=== PATIENT | male | born 1955 | race Caucasian/White ===

== ENCOUNTER 2016-09-02 17:36 | Inpatient (IN) | payer MEDICARE, OTHER ==
[~2016-09-02] VITALS: Ht 182.9 cm; Wt 85.5 kg
[2016-09-02] MEDS ORDERED: LORAZEPAM 2 MG INJ ONE (17:47)
[2016-09-02] MEDS ORDERED: SOD CHLORIDE 0.9% 1,000 ML IV STA (17:49)
[2016-09-02] MEDS ORDERED: MIDAZOLAM (DRIP) 50 mg/50 mL 50 ML IV STA (17:49)
[2016-09-02] MEDS ORDERED: LEVOFLOXACIN 750MG/D5W (PMX) 150 ML IVPB ONE (18:00)
[2016-09-02] MEDS ORDERED: LORAZEPAM 2 MG INJ IV ONE (18:00)
--- NOTE | 2016-09-02 18:20 | RADRPT ---
PROCEDURE: XR Chest. CLINICAL INDICATION: Abdominal pain TECHNIQUE: Chest AP portable supine COMPARISON: None available FINDINGS: Endotracheal tube 6 cm above the lisette. The mediastinal structures are unremarkable. There is calcification of the thoracic aorta (consiste nt with atherosclerosis). The heart is normal in size and configuration. The pulmonary vascularity is normal. The lung amin are unremarkable. No consolidation is identified. The pleural spaces are unremarkable. The osseous structures are unremarkable. IMPRESSION: Calcification of the thoracic aorta (consistent with atherosclerosis). No evidence for active cardiopulmonary disease. RPTAT: HGDB .Delfin Carrera MD, Date Time Electronically viewed and signed by .Delfin Carrera MD, on 09/02/2016 18:19 .B/
[2016-09-02 18:33] LABS: ADD SCAN DIFF NO
[2016-09-02 18:46] LABS: BASOPHIL # 0.1 10^3/ul (0.0-0.1); BASOPHILS % 0.6 % (0.0-2.0); EOSINOPHILS # 0.3 10^3/ul (0.0-0.5); EOSINOPHILS % 2.7 % (0.0-7.0); HEMATOCRIT 39.1 % (42.0-52.0); HEMOGLOBIN 13.5 g/dl (14.0-18.0); LYMPHOCYTES # 4.1 10^3/ul (0.8-2.9); LYMPHOCYTES % 38.1 % (15.0-51.0); MEAN CORPUSCULAR HEMOGLOBIN 32.9 pg (29.0-33.0); MEAN CORPUSCULAR HGB CONC 34.5 g/dl (32.0-37.0); MEAN CORPUSCULAR VOLUME 95.4 fl (82.0-101.0); MEAN PLATELET VOLUME 12.7 fl (7.4-10.4); MONOCYTE # 0.9 10^3/ul (0.3-0.9); NEUTROPHIL # 5.4 10^3/ul (1.6-7.5); NEUTROPHILS % 49.4 % (39.0-77.0); PLATELET COUNT 128 10^3/UL (140-415); RED CELL DISTRIBUTION WIDTH 11.8 % (11.5-14.5); WHITE BLOOD COUNT 10.9 10^3/ul (4.8-10.8)
[2016-09-02 18:55] LABS: ALBUMIN 3.9 g/dl (3.3-4.9); CHLORIDE 99 mmol/L (97-110); POTASSIUM 4.2 mmol/L (3.5-5.1); SODIUM 136 mmol/L (135-144)
[2016-09-02 18:58] LABS: ALANINE AMINOTRANSFERASE 38 IU/L (13-69); ALBUMIN/GLOBULIN RATIO 0.95; ALKALINE PHOSPHATASE 61 IU/L (42-121); ANION GAP 20 (8-16); ASPARTATE AMINO TRANSFERASE 43 IU/L (15-46); BILIRUBIN,INDIRECT 0.2 mg/dl (0-1.1); BILIRUBIN,TOTAL 0.2 mg/dl (0.2-1.3); BLOOD UREA NITROGEN 20 mg/dl (7-20); CALCIUM 8.6 mg/dl (8.4-10.2); CARBON DIOXIDE 21 mmol/L (21-31); CREATININE 0.89 mg/dl (0.61-1.24); GLUCOSE 223 mg/dl (70-220)
[2016-09-02 19:02] LABS: ADD UMIC YES; URINE BILIRUBIN (Dip) NEGATIVE (NEGATIVE); URINE BLOOD (Dip) 2+ (NEGATIVE); URINE COLOR LT. YELLOW (YELLOW); URINE GLUCOSE (Dip) NEGATIVE (NEGATIVE); URINE KETONES (Dip) NEGATIVE (NEGATIVE); URINE LEUKOCYTE ESTERASE (Dip) TRACE (NEGATIVE); URINE NITRITE (Dip) NEGATIVE (NEGATIVE); URINE TOTAL PROTEIN (Dip) TRACE (NEGATIVE); URINE UROBILINOGEN (Dip) 0.2 E.U./dL (0.1-1.0)
[2016-09-02] MEDS ORDERED: DIVA125C11 PO (19:11)
[2016-09-02] MEDS ORDERED: OMEG1CAP9 PO (19:12)
[2016-09-02] MEDS ORDERED: LACT20SO2 PO (19:15)
[2016-09-02] MEDS ORDERED: ATOR20TA38 PO (19:15)
[2016-09-02 19:17] LABS: TROPONIN-I < 0.012 ng/ml (0.00-0.12)
[2016-09-02] MEDS ORDERED: MAGN250T5 PO (19:18)
[2016-09-02] MEDS ORDERED: NEPHROVITE PO (19:21)
[2016-09-02] MEDS ORDERED: GABA100C PO (19:22)
[2016-09-02] MEDS ORDERED: PHEN100C PO (19:24)
[2016-09-02] MEDS ORDERED: PROP10TA6 PO (19:25)
[2016-09-02] MEDS ORDERED: OXCA300T3 PO (19:26)
[2016-09-02] MEDS ORDERED: CHOL100062 PO (19:27)
[2016-09-02] MEDS ORDERED: BISA-57 PO (19:28)
[2016-09-02] MEDS ORDERED: MAGN400O4 PO (19:29)
[2016-09-02] MEDS ORDERED: ACET325T33 PO (19:30)
[2016-09-02] MEDS ORDERED: FLEETPED PR (19:31)
[2016-09-02 19:40] LABS: BACTERIA,URINE MODERATE; SQUAMOUS EPITHELIAL CELL,UR FEW
[2016-09-02 19:42] LABS: AADO2 Arterial 244.9 mmHg (7.0-24.0); Arterial Base Excess 1.6 mmol/L (-3.0-3); Arterial COHb 0.3 % (0.0-3.0); Arterial Fraction of Oxyhgb 98.7 % (93.0-99.0); Arterial HCO3 25.6 mmol/L (22.0-26.0); Arterial MetHb 0.4 % (0.0-1.5); Arterial Total Hemglobin 13.2 g/dl (12.0-18.0); MODE VENT - AC
[2016-09-02 20:00] LABS: INR 1.37; PROTIME 16.9 Sec (12.2-14.2); PT RATIO 1.3
[2016-09-02] MEDS ORDERED: FLUMAZENIL 0.5 MG INJ IV PRN (20:00)
[2016-09-02] MEDS ORDERED: BISACODYL 10 MG SUPP PR PRN (20:00)
[2016-09-02] MEDS ORDERED: ACETAMINOPHEN 650 MG SUPP PR PRN (20:00)
[2016-09-02] MEDS ORDERED: ACETAMINOPHEN 325 MG TAB PO PRN (20:00)
[2016-09-02] MEDS ORDERED: NITROGLYCERIN (SL) 0.4 MG TAB SL PRN (20:00)
[2016-09-02] MEDS ORDERED: DOCUSATE SODIUM 100 MG CAP PO PRN (20:00)
[2016-09-02] MEDS ORDERED: ONDANSETRON 4 MG INJ IV PRN (20:00)
[2016-09-02] MEDS ORDERED: ACETAMINOPHEN 650MG/20.3ML CUP PO PRN (20:00)
[2016-09-02] MEDS ORDERED: MAGNESIUM HYDROXIDE 30ML CUP PO PRN (20:00)
[2016-09-02] MEDS ORDERED: BISACODYL (EC) 5 MG TAB PO PRN (20:00)
[2016-09-02] MEDS ORDERED: NALOXONE (0.4 MG/ML) INJ IV PRN (20:00)
--- NOTE | 2016-09-02 20:58 | ERA ---
ER Documentation Chief Complaint Date/Time DATE: 09/02/16 TIME: 20:38 Chief Complaint PER EMS PATIENT ASPIRATED ON FOOD, ALOC, WEAK PULSES, CHEST COMPRESSION HPI 60-year-old man brought in by EMS after respiratory arrest, at the scene they stated he vomited and most likely aspirated, they applied high flow oxygen via facemask and after a few episodes of vomiting they say he began breathing independently but remained altered with a GCS equals 3. Nurses at the facility state just prior to EMS arrival he stopped breathing and they could not feel pulses and began chest compressions. EMS state upon their arrival he did have pulses and they did not require chest compressions or intravenous epinephrine. He has had no recent fevers or chills, no diarrhea, no seizure activity. HPI supplemented by reviewing previous medical records and speaking to EMS. ROS All systems reviewed and are negative except as per history of present illness. Medications Home Meds Reported Medications Sod Phosphate/Sod Biphosphate* (Fleet* Enema Pediatric) 66.6 Ml Soln, 66.6 ML [place] DAILY Y for CONSTIPATION, ENEMA 09/02/16 Acetaminophen* (Tylenol*) 325 Mg Tablet, 650 MG PO Q4H Y for MILD PAIN LEVEL 1-3 , TAB AND FOR FEVER>100 09/02/16 Magnesium Hydroxide* (Milk Of Magnesia*) 400 Mg/5 Ml Oral.susp, 30 ML PO QHS, ML 09/02/16 Bisacodyl* (Dulcolax*) 5 Mg Tablet.dr, 10 MG PO Q2D Y for CONSTIPATION, TAB 09/02/16 Cholecalciferol* (Vitamin D3*) 1,000 Unit Tablet, 1000 UNIT PO QAM, TAB 09/02/16 Oxcarbazepine* (Trileptal*) 300 Mg Tablet, 300 MG PO BID, TAB 09/02/16 Propranolol Hcl* (Propranolol Hcl*) 10 Mg Tablet, 10 MG PO TID, TAB HOLD IF SBP<110 HR<60 9AM,1PM,5PM. 09/02/16 Phenytoin* Sodium Extended (Dilantin*) 100 Mg Capsule, 200 MG PO HS, CAP 09/02/16 Gabapentin* (Neurontin*) 100 Mg Capsule, 100 MG PO TID, #90 CAP TAKE 9AM,1PM,5PM. 09/02/16 [Nephrovite] No Conflict Check, 1 TAB PO QAM 09/02/16 Magnesium Oxide (Magnesium) 250 Mg Tablet, 250 MG PO BID, TAB 09/02/16 Atorvastatin Calcium* (Atorvastatin Calcium*) 20 Mg Tablet, 20 MG PO QHS, #30 TAB 09/02/16 Lactulose* (Lactulose*) 20 Gm/30 Ml Solution, 45 GM PO QID, ML TAKE 9AM,1PM,5PM,9PM. 09/02/16 [place]-3 Fatty Acids/Fish Oil (Fish Oil 1,000 mg Softgel) 1 Each Capsule, 1 EACH PO QAM, CAP 09/02/16 Divalproex Sodium* (Depakote* Sprinkle) 125 Mg Cap.sprink, 500 MG PO BID, #360 CAP 09:00 AM AND 05:00 PM 09/02/16 Allergies Allergies: Coded Allergies: No Known Allergy (Unverified , 09/02/16) PMhx/Soc Hypertension, COPD, possible seizure disorder Medical and Surgical Hx: Unable to obtain Smoking Status: Unknown if ever smoked FmHx Family History: No diabetes Physical Exam Vitals Vital Signs Date Time Temp Pulse Resp B/P Pulse Ox O2 Delivery O2 Flow Rate FiO2 09/02/16 18:47 77 16 100 100 09/02/16 17:50 73 20 120/97 100 Physical Exam GENERAL: Well-developed elderly man, unresponsive, GCS equals 3, apneic HEENT: Dry mucous membranes, pale conjunctival, no cervical spine deformity, no goiter, no jaundice NEURO: Patient appears sluggish, GCS equals 3, moving upper and lower extremities bilaterally, no facial asymmetry, pupils equal round reactive to light CARDIAC: Bradycardic to about 50 bpm, regular, no murmurs rubs gallops LUNGS: Poor breath sounds bilaterally, no crackles or stridor ABDOMEN: Soft nontender, no guarding, no rigidity, no rebound, no psoas sign no obturator sign. Normoactive bowel sounds SKIN: Warm and dry to touch, no abrasions, contusions, or hematomas, no lacerations, no ecchymosis, no target lesions, and without ulcers EXTREMITIES: No clubbing cyanosis or edema, calves are bilaterally symmetrical, no Homans sign, no popliteal cord sign. Distal pulses equal and bilateral PSYCH: Unable to assess Result Diagram: 09/02/16181409/02/161814 Results 24 hrs Laboratory Tests Test 09/02/16 18:15 09/02/16 18:27 09/02/16 19:30 09/02/16 19:40 White Blood Count 10.910^3/ul Red Blood Count 4.1010^6/ul Hemoglobin 13.5g/dl Hematocrit 39.1% Mean Corpuscular Volume 95.4fl Mean Corpuscular Hemoglobin 32.9pg Mean Corpuscular Hemoglobin Concent 34.5g/dl Red Cell Distribution Width 11.8% Platelet Count 54462^3/UL Mean Platelet Volume 12.7fl Neutrophils % 49.4% Lymphocytes % 38.1% Monocytes % 8.0% Eosinophils % 2.7% Basophils % 0.6% Nucleated Red Blood Cells % 0.0/100WBC Neutrophils # 5.410^3/ul Lymphocytes # 4.110^3/ul Monocytes # 0.910^3/ul Eosinophils # 0.310^3/ul Basophils # 0.110^3/ul Nucleated Red Blood Cells # 0.010^3/ul Sodium Level 136mmol/L Potassium Level 4.2mmol/L Chloride Level 99mmol/L Carbon Dioxide Level 21mmol/L Anion Gap 20 Blood Urea Nitrogen 20mg/dl Creatinine 0.89mg/dl Glucose Level 223mg/dl Calcium Level 8.6mg/dl Total Bilirubin 0.2mg/dl Direct Bilirubin 0.00mg/dl Indirect Bilirubin 0.2mg/dl Aspartate Amino Transf (AST/SGOT) 43IU/L Alanine Aminotransferase (ALT/SGPT) 38IU/L Alkaline Phosphatase 61IU/L Troponin I < 0.012ng/ml Total Protein 8.0g/dl Albumin 3.9g/dl Globulin 4.10g/dl Albumin/Globulin Ratio 0.95 Lipase 152U/L Urine Color LT. YELLOW Urine Clarity SLIGHTLY CLOUDY Urine pH 6.5 Urine Specific [place] 1.015 Urine Ketones NEGATIVE Urine Nitrite NEGATIVE Urine Bilirubin NEGATIVE Urine Urobilinogen 0.2 E.U./dL Urine Leukocyte Esterase TRACE Urine Microscopic RBC 10-25/HPF Urine Microscopic WBC 2-5/HPF Urine Squamous Epithelial Cells FEW Urine Bacteria MODERATE Urine Hemoglobin 2+ Urine Glucose NEGATIVE% Urine Total Protein TRACE Blood Gas Specimen Source Blood arterial Arterial Blood Date Drawn 09/02/2016 7:38:03 PM Arterial Blood pH (Temp corrected) 7.443 Arterial Blood pCO2 (Temp correct) 38.3mmhg Arterial Blood pO2 (Temp corrected) 429.8mmHG Arterial Blood HCO3 25.6mmol/L Arterial Blood Base Excess 1.6mmol/L Arterial Blood Oxygen Saturation 99.4mmHG Remi Test N/A Arterial Blood Gas Puncture Site Right Brachial Arterial Blood Carboxyhemoglobin 0.3% Arterial Blood Methemoglobin 0.4% Blood Gas A-a O2 Differential 244.9mmHg Oxyhemoglobin Percent 98.7% Total Hemoglobin 13.2g/dl Blood Gas Temperature 37.0C Blood Gas Respiration Rate 16.0 Blood Gas Actual Respiration Rate 16 Blood Gas Modality VENT - AC FiO2 100.0% Blood Gas Tidal Volume 600.0mL Blood Gas Low PEEP Setting 5.0cmH2O Blood Gas Inspiratory Pressure 26.0 Blood Gas Notified Whom MG Blood Gas Notified Time 09/02/2016 7:42:50 PM Prothrombin Time 16.9Sec Prothrombin Time Ratio 1.3 INR International Normalized Ratio 1.37 Current Medications Medications (Trade) Dose Ordered Sig/Romain Route PRN Reason Start Time Stop Time Status Last Admin Dose Admin Lorazepam 2 mg 2 mg ONCE ONCE IV 09/02/16 18:00 09/02/16 18:01 DC 09/02/16 17:55 Midazolam HCl 50 ml @ 3 mls/hr ONCE STAT IV 09/02/16 17:49 09/03/16 10:28 09/02/16 18:18 Levofloxacin/ Dextrose 150 ml @ 100 mls/hr ONCE ONCE IVPB 09/02/16 18:00 09/02/16 19:29 DC 09/02/16 18:18 Sodium Chloride (NS) 1,000 ml @ 2,000 mls/hr Q30M STAT IV 09/02/16 17:49 09/02/16 18:18 DC 09/02/16 17:56 Flumazenil (Romazicon) 0.2 mg Q1M PRN IV BENZODIAZEPINE OVERDOSE 09/02/16 20:00 Naloxone HCl (Narcan) 0.4 mg Q3M PRN IV DECREASED REPIRATORY RATE 09/02/16 20:00 Ondansetron HCl (Zofran Inj) 4 mg Q6H PRN IV NAUSEA AND/OR VOMITING 09/02/16 20:00 Albuterol/ Ipratropium (Duoneb) 3 ml Q4H RESP THERAPY NEB 09/02/16 21:00 Albuterol (Proventil 0.083% (Neb)) 2.5 mg Q4H RESP THERAPY NEB 09/02/16 21:00 UNV Ipratropium [place] (Atrovent 0.02% (Neb)) 0.5 mg Q4H RESP THERAPY NEB 09/02/16 21:00 UNV Methylprednisolone Sodium Succinate (Solu-Medrol) 60 mg Q6 IV 09/03/16 00:00 Nitroglycerin (Nitroglycerin (Sl Tab) 0.4 Mg) 1 tab Q5M PRN SL CHEST PAIN 09/02/16 20:00 Acetaminophen (Tylenol Liquid) 650 mg Q6H PRN PO PAIN LEVEL 1-3 OR FEVER 09/02/16 20:00 Acetaminophen (Tylenol Tab) 650 mg Q6H PRN PO PAIN LEVEL 1-3 OR FEVER 09/02/16 20:00 Acetaminophen (Tylenol Supp) 650 mg Q4H PRN WI PAIN LEVEL 1-3 OR FEVER 09/02/16 20:00 Docusate Sodium (Colace) 100 mg Q12H PRN PO CONSTIPATION 09/02/16 20:00 Magnesium Hydroxide (Milk Of Mag) 30 ml DAILY PRN PO CONSTIPATION 09/02/16 20:00 Bisacodyl (Dulcolax) 5 mg DAILY PRN PO CONSTIPATION 09/02/16 20:00 Bisacodyl (Dulcolax Supp) 10 mg DAILY PRN WI CONSTIPATION 09/02/16 20:00 Procedures/MDM IV line was established patient was placed on engine monitor rhythm strip revealed a sinus bradycardia at about 50 bpm. Patient was afebrile. Blood sugar was normal. Endotracheal Intubation by me: Pre assessment performed. Patient had some movement and required sedation with etomidate 20 mg IV 1, paralysis not required to intubate successfully. Pre-oxygenation performed with 100% oxygen RSI: Performed w/o complication or hypoxic events. Medications as ordered. Blade: Mac 4 ET Tube: 7.5 cm Depth: 22 cm at the lip Intubation confirmed by colorimetric CO2, equal breath sounds, quiet over the stomach. Chest X-ray 1V Interpreted by me: 6 cm above the lisette ET tube. Atelectatic changes bilaterally, no acute infiltrates normal soft tissue, No pneumothorax. I advanced the ET tube 2 more centimeters after this chest x-ray. EKG performed, read by me revealed a sinus rhythm at 60 bpm, right axis deviation and a right bundle branch block, QRS duration 146 ms with a first- degree atrioventricular block at 240 ms, no concerning ST elevations or depressions noted. I administered Ativan 2 mg IV for continued sedation and ordered midazolam drip. CBC was unremarkable, electrolytes revealed dehydration with a BUN/creatinine of 20/0.9, liver function tests are normal, troponin was negative. Urine analysis at this time appears unremarkable, urine cultures are pending I will follow-up. Given the possibility of aspiration I did treat the patient here with levofloxacin 750 mg IV 1. ABG revealed a pH of 7.44, PCO2 38, PO2 430 so FiO2 was decreased to 50% I administered 2 L normal saline intravenously for dehydration. Patient was afebrile and I do not suspect sepsis, although patient's medical reconciliation form does indicate treatment with valproic acid so he may have history of seizure disorder and may have suffered a seizure episode at the facility causing vomiting, possible aspiration, and resulting in a postictal state. Further management deferred to admitting PMD. Critical Care: Time: 47 minutes, this was time separate from other procedures. Treatments/Evaluations: Close monitoring and treatment of unstable vital signs, cardiorespiratory, and neurologic status, while maintaining tight balance of fluid, respiratory, and cardiac interventions. Patient is intubated at this time, vital signs are normal, and he is admitted to intensive care unit under Dr. Gavin. CT scan of the brain has been ordered results are pending I will follow-up. Departure Diagnosis: Primary Impression: Respiratory failure Qualified Code: J96.01 - Acute respiratory failure with hypoxia and hypercapnia Additional Impressions: Dehydration Aspiration of vomit Qualified Code: T17.910A - Aspiration of vomit, initial encounter Encephalopathy Condition: Critical WINNIE FLORES MD Sep 02, 2016 20:50
[2016-09-02] MEDS ORDERED: IPRATROPIUM (NEB) 0.5 MG/2.5 ML AMP NEB SCH (21:00)
[2016-09-02] MEDS ORDERED: ALBUTEROL/IPRATROPIUM (NEB) 3 ML AMP NEB SCH (21:00)
[2016-09-02] MEDS ORDERED: ALBUTEROL 0.083% (NEB) 2.5 MG/3 ML AMP NEB SCH (21:00)
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
[2016-09-02] MEDS: METHYLPREDNISOLONE 125 MG INJ IV SCH (23:40)
--- NOTE | 2016-09-02 23:50 | QN ---
Documentation Comment [id number] hp SALVATORE CALZADA MD Sep 02, 2016 23:50
[2016-09-03] MEDS ORDERED: BISACODYL (EC) 5 MG TAB PO PRN
[2016-09-03] MEDS: DEXTROSE 5%-0.45% NACL 1,000 ML IV SCH (01:04)
[2016-09-03] MEDS: ALBUTEROL HFA 8 GM INHALER INH SCH ×3 (02:50→08:52)
[2016-09-03] MEDS: IPRATROPIUM (HFA) 12.9 GM INHALER INH SCH ×3 (02:50→08:51)
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
[2016-09-03 05:59] LABS: ADD SCAN DIFF NO
[2016-09-03] MEDS: METHYLPREDNISOLONE 125 MG INJ IV SCH (05:59)
[2016-09-03 06:09] LABS: BASOPHILS % 0.1 % (0.0-2.0); EOSINOPHILS % 0.1 % (0.0-7.0); HEMATOCRIT 35.1 % (42.0-52.0); HEMOGLOBIN 12.2 g/dl (14.0-18.0); LYMPHOCYTES # 1.5 10^3/ul (0.8-2.9); LYMPHOCYTES % 14.1 % (15.0-51.0); MEAN CORPUSCULAR HEMOGLOBIN 32.5 pg (29.0-33.0); MEAN CORPUSCULAR HGB CONC 34.8 g/dl (32.0-37.0); MEAN CORPUSCULAR VOLUME 93.6 fl (82.0-101.0); MEAN PLATELET VOLUME 12.2 fl (7.4-10.4); MONOCYTE # 0.5 10^3/ul (0.3-0.9); MONOCYTES % 4.9 % (0.0-11.0); NEUTROPHIL # 8.5 10^3/ul (1.6-7.5); NEUTROPHILS % 80.4 % (39.0-77.0); PLATELET COUNT 102 10^3/UL (140-415); RED BLOOD COUNT 3.75 10^6/ul (4.70-6.10); RED CELL DISTRIBUTION WIDTH 11.9 % (11.5-14.5); WHITE BLOOD COUNT 10.6 10^3/ul (4.8-10.8)
[2016-09-03 06:13] LABS: ALBUMIN 3.2 g/dl (3.3-4.9)
[2016-09-03 06:14] LABS: POTASSIUM 4.5 mmol/L (3.5-5.1)
[2016-09-03 06:16] LABS: ALBUMIN/GLOBULIN RATIO 0.86; BILIRUBIN,INDIRECT 0.4 mg/dl (0-1.1); BILIRUBIN,TOTAL 0.4 mg/dl (0.2-1.3); CALCIUM 8.3 mg/dl (8.4-10.2); CREATININE 1.03 mg/dl (0.61-1.24); TOTAL PROTEIN 6.9 g/dl (6.1-8.1)
[2016-09-03] MEDS: OXCARBAZEPINE 300 MG TAB PO SCH ×2 (09:00→21:00)
[2016-09-03] MEDS ORDERED: DIVALPROEX SPRINKLE 125 MG CAP PO SCH (09:00)
[2016-09-03] MEDS: CHOLECALCIFEROL 1,000 UNIT TAB PO SCH (09:00)
[2016-09-03] MEDS: ASPIRIN 325 MG TAB PO SCH (09:00)
[2016-09-03] MEDS: GABAPENTIN 100 MG CAP PO SCH ×2 (09:00→21:00)
[2016-09-03] MEDS: CEFTRIAXONE 1 GM/50 ML (PMX) 50 ML IVPB SCH (09:28)
--- NOTE | 2016-09-03 11:19 | CONS ---
Date/Time of Note Date/Time of Note DATE: 09/03/16 TIME: 11:13 Assessment/Plan Assessment/Plan Additional Assessment/Plan CT of the head was reviewed which is showing encephalomalacia with evidence of prior craniotomies. Chest x-ray also was reviewed from yesterday which is totally clear. Assessment recommendations; patient admitted with a choking episode on a piece of meat requiring CPR in oral intubation. 2. Stable seizure disorder. 3. History of CVA. 4. History of hypertension, depression, anemia, which all appear fairly stable. 5. Possibly some element of aspiration or difficult to rule out at this time. Patient however currently on appropriate antibiotic regimen. Continue current treatment. When the patient is transferred to ICU he will be evaluated for possible extubation. Consultation Date/Type/Reason Admit Date/Time Date of Consultation: Sep 03, 2016 Type of Consultation: Pulmonary/critical care Reason for Consultation Pulmonary consultations requested for evaluation of respiratory failure. Patient sent in from long term after sustaining a choking episode while eating leading to respiratory failure. History presenting; patient is a 60-year-old white male who was sent over to the ER from the long term yesterday after the patient sustained a choking episode while eating. It is not clear whether CPR was done or not but the patient had to be intubated and put on mechanical invasive mechanical ventilation. By the time I saw the patient, patient is somewhat arousable and is unable to give any history whatsoever himself. History was obtained from medical records, the patient was apparently doing fine until yesterday when he was eating and then choked on a piece of food that resulted in apparent cardiac arrest requiring CPR with further transfer to the hospital where the patient was intubated and put on mechanical ventilation. Patient apparently has history of advanced dementia on account of multiple CVAs as well as history of prior craniotomy evidently due to intracerebral hemorrhage. Past medical history; 1. Patient with history of prior respiratory failure 2. History of seizures 3. Hypertension. 4. Depression. 5. Anemia. 6. History of prior craniotomy. 7. Hyper lipidemia. Medications; were reviewed. Allergies; are none. Social history; not available. Family history; patient apparently is . Occupational he; not available. Review of systems; unable to be obtained. General exam; elderly male, orally intubated, awake but does not respond to any commands. Social History Smoking Status: Unknown if ever smoked Exam/Review of Systems Vital Signs Vitals Vital Signs Date Time Temp Pulse Resp B/P Pulse Ox O2 Delivery O2 Flow Rate FiO2 09/03/16 08:52 74 16 100 50 09/03/16 06:30 97.1 98/55 Mechanical Ventilator Intake and Output 09/02/16 09/02/16 09/03/16 15:00 23:00 07:00 Output Total 500 ml Balance -500 ml Exam HEENT exam is; supple neck, no JVD. No lymphadenopathy. Midline trachea. No thyromegaly. Patient has fair dentition. Pupils are midsize and reactive to light. Multiple well-healed craniotomy scars are present. No thyromegaly. No neck bruits. Chest examination WI: Clear to auscultation bilaterally. S1-S2 audible, no murmurs. Regular rhythm. Abdomen exam is; soft, nondistended. No organomegaly. Bowel sounds audible. Extremity exam is; no peripheral edema. Pulses 1+ bilaterally. No clubbing. SHOT DROPPER exam is; patient is awake but does not follow any commands. Results Result Diagram: 09/03/16 0536 09/03/16 0536 Results 24 hrs Laboratory Tests Test 09/02/16 18:15 09/02/16 18:27 09/02/16 19:30 09/02/16 19:40 White Blood Count 10.9 H Red Blood Count 4.10 L Hemoglobin 13.5 L Hematocrit 39.1 L Mean Corpuscular Volume 95.4 Mean Corpuscular Hemoglobin 32.9 Mean Corpuscular Hemoglobin Concent 34.5 Red Cell Distribution Width 11.8 Platelet Count 128 L Mean Platelet Volume 12.7 H Neutrophils % 49.4 Lymphocytes % 38.1 Monocytes % 8.0 Eosinophils % 2.7 Basophils % 0.6 Nucleated Red Blood Cells % 0.0 Neutrophils # 5.4 Lymphocytes # 4.1 H Monocytes # 0.9 Eosinophils # 0.3 Basophils # 0.1 Nucleated Red Blood Cells # 0.0 Sodium Level 136 Potassium Level 4.2 Chloride Level 99 Carbon Dioxide Level 21 Anion Gap 20 H Blood Urea Nitrogen 20 Creatinine 0.89 Glucose Level 223 H Calcium Level 8.6 Total Bilirubin 0.2 Direct Bilirubin 0.00 Indirect Bilirubin 0.2 Aspartate Amino Transf (AST/SGOT) 43 Alanine Aminotransferase (ALT/SGPT) 38 Alkaline Phosphatase 61 Troponin I < 0.012 0.107 Total Protein 8.0 Albumin 3.9 Globulin 4.10 H Albumin/Globulin Ratio 0.95 Lipase 152 Urine Color LT. YELLOW Urine Clarity SLIGHTLY CLOUDY Urine pH 6.5 Urine Specific [place] 1.015 Urine Ketones NEGATIVE Urine Nitrite NEGATIVE Urine Bilirubin NEGATIVE Urine Urobilinogen 0.2 E.U./dL Urine Leukocyte Esterase TRACE H Urine Microscopic RBC 10-25 Urine Microscopic WBC 2-5 Urine Squamous Epithelial Cells FEW Urine Bacteria MODERATE Urine Hemoglobin 2+ H Urine Glucose NEGATIVE Urine Total Protein TRACE Blood Gas Specimen Source Blood arterial Arterial Blood Date Drawn 09/02/2016 7:38:03 PM Arterial Blood pH (Temp corrected) 7.443 Arterial Blood pCO2 (Temp correct) 38.3 Arterial Blood pO2 (Temp corrected) 429.8 H Arterial Blood HCO3 25.6 Arterial Blood Base Excess 1.6 Arterial Blood Oxygen Saturation 99.4 H Remi Test N/A Arterial Blood Gas Puncture Site Right Brachial Arterial Blood Carboxyhemoglobin 0.3 Arterial Blood Methemoglobin 0.4 Blood Gas A-a O2 Differential 244.9 H Oxyhemoglobin Percent 98.7 Total Hemoglobin 13.2 Blood Gas Temperature 37.0 Blood Gas Respiration Rate 16.0 Blood Gas Actual Respiration Rate 16 Blood Gas Modality VENT - AC FiO2 100.0 Blood Gas Tidal Volume 600.0 Blood Gas Low PEEP Setting 5.0 Blood Gas Inspiratory Pressure 26.0 Blood Gas Notified Whom MG Blood Gas Notified Time 09/02/2016 7:42:50 PM Prothrombin Time 16.9 H Prothrombin Time Ratio 1.3 INR International Normalized Ratio 1.37 Test 09/03/16 01:20 09/03/16 05:36 Troponin I 0.249 *H White Blood Count 10.6 Red Blood Count 3.75 L Hemoglobin 12.2 L Hematocrit 35.1 L Mean Corpuscular Volume 93.6 Mean Corpuscular Hemoglobin 32.5 Mean Corpuscular Hemoglobin Concent 34.8 Red Cell Distribution Width 11.9 Platelet Count 102 #L Mean Platelet Volume 12.2 H Neutrophils % 80.4 H Lymphocytes % 14.1 L Monocytes % 4.9 Eosinophils % 0.1 Basophils % 0.1 Nucleated Red Blood Cells % 0.0 Neutrophils # 8.5 H Lymphocytes # 1.5 Monocytes # 0.5 Eosinophils # 0.0 Basophils # 0.0 Nucleated Red Blood Cells # 0.0 Sodium Level 133 L Potassium Level 4.5 Chloride Level 102 Carbon Dioxide Level 24 Anion Gap 12 # Blood Urea Nitrogen 21 H Creatinine 1.03 Glucose Level 223 H Calcium Level 8.3 L Total Bilirubin 0.4 Direct Bilirubin 0.00 Indirect Bilirubin 0.4 Aspartate Amino Transf (AST/SGOT) 34 Alanine Aminotransferase (ALT/SGPT) 43 Alkaline Phosphatase 62 Total Protein 6.9 # Albumin 3.2 L Globulin 3.70 H Albumin/Globulin Ratio 0.86 Medications Medications Current Medications Flumazenil (Romazicon) 0.2 mg Q1M PRN IV BENZODIAZEPINE OVERDOSE; Start at 20:00 Naloxone HCl (Narcan) 0.4 mg Q3M PRN IV DECREASED REPIRATORY RATE; Start at 20:00 Ondansetron HCl (Zofran Inj) 4 mg Q6H PRN IV NAUSEA AND/OR VOMITING; Start 09/02 at 20:00 Methylprednisolone Sodium Succinate (Solu-Medrol) 60 mg Q6 IV Last administered on 09/03/16t 05:59; Admin Dose 60 MG; Start 09/03/16 at 00:00 Nitroglycerin (Nitroglycerin (Sl Tab) 0.4 Mg) 1 tab Q5M PRN SL CHEST PAIN; Start 09/02/16 at 20:00 Acetaminophen (Tylenol Liquid) 650 mg Q6H PRN PO PAIN LEVEL 1-3 OR FEVER; Start 09/02/16 at 20:00 Acetaminophen (Tylenol Tab) 650 mg Q6H PRN PO PAIN LEVEL 1-3 OR FEVER; Start at 20:00 Acetaminophen (Tylenol Supp) 650 mg Q4H PRN OR PAIN LEVEL 1-3 OR FEVER; Start 09/02/16 at 20:00 Docusate Sodium (Colace) 100 mg Q12H PRN PO CONSTIPATION; Start 09/02/16 at 20: 00 Magnesium Hydroxide (Milk Of Mag) 30 ml DAILY PRN PO CONSTIPATION; Start at 20:00 Bisacodyl (Dulcolax) 5 mg DAILY PRN PO CONSTIPATION; Start 09/02/16 at 20:00 Bisacodyl (Dulcolax Supp) 10 mg DAILY PRN OR CONSTIPATION; Start 09/02/16 at 20: 00 Acetaminophen (Tylenol Tab) 650 mg Q4H PRN PO MILD PAIN LEVEL 1-3; Start at 00:00 Atorvastatin Calcium (Lipitor) 20 mg QHS PO ; Start 09/03/16 at 21:00 Bisacodyl (Dulcolax) 10 mg Q2D PRN PO CONSTIPATION; Start 09/03/16 at 00:00 Cholecalciferol (Vitamin D) 1,000 unit QAM PO ; Start 09/03/16 at 09:00 Divalproex Sodium (Depakote Sprinkle) 500 mg BID PO ; Start 09/03/16 at 09:00 Gabapentin (Neurontin) 100 mg TID PO ; Start 09/03/16 at 09:00 Magnesium Hydroxide (Milk Of Mag) 30 ml QHS PO ; Start 09/03/16 at 21:00 Oxcarbazepine (Trileptal) 300 mg BID PO ; Start 09/03/16 at 09:00 Phenytoin (Dilantin) 200 mg HS PO ; Start 09/03/16 at 21:00 Aspirin 325 mg 325 mg DAILY PO ; Start 09/03/16 at 09:00 Ceftriaxone Sodium 50 ml @ 100 mls/hr DAILY IVPB Last administered on 09:28; Admin Dose 100 MLS/HR; Start 09/03/16 at 09:00 Dextrose/Sodium Chloride (D5-1/2ns) 1,000 ml @ 50 mls/hr Q20H IV Last administered on 09/03/16 01:04; Admin Dose 50 MLS/HR; Start 09/03/16 at 00:00 SOLO PAK Sep 03, 2016 11:19
[2016-09-03] MEDS: VALPROATE INJ 500 MG in DEXTROSE 5% 50 ML IVPB SCH (13:00)
--- NOTE | 2016-09-03 18:41 | RADRPT ---
Echocardiogram Report Patient Name: GORDO KIRBY Gender: Male Date: 1955 Study Date: 03-Sep-2016 Orthopaedic General: Ray Arzola RDCS Location: [facility] Ref. Physician: SALVATORE CALZADA Quality: Technically Difficult Study Procedures: Transthoracic echocardiogram with complete 2D, M-Mode, and doppler examination. Indications: Coronary Artery Disease. 2D/M Mode Doppler Measurement Value Normal Ranges Measurement Value Normal Ranges LVIDd 2D 3.5 3.5 - 5.6 cm AV Peak Sushant 0.9 m/sec LVIDs 2D 2.0 2.1 - 4.1 cm AV Peak PG 3.3 mmHg LVPWd 2D 1.0 0.6 - 1.1 cm LVOT Peak Sushant 0.8 m/sec IVSd 2D 1.1 0.6 - 1.1 cm LVOT Peak PG 2.4 mmHg AoR Diam 2D 2.7 2.0 - 3.7 cm MV E Peak Sushant 0.4 m/sec EDV 2D 50.9 cm3 MV A Peak Sushant 0.6 m/sec ESV 2D 8.3 cm3 MV E/A 0.7 LA Dimen 2D 2.7 2.3 - 4.0 cm MV Decel Time 158 msec MV Decel [place] 3 MV E/A 0.7 Findings Left Ventricle: Hyperdynamic left ventricular systolic function. Normal left ventricular cavity size. Mild concentric left ventricular hypertrophy. Ejection fraction is visually estimated at 70 %. Tissue Doppler/Mitral Doppler indices are consistent with impaired relaxation (Stage I diastolic dysfunction). Right Ventricle: Normal right ventricular size. Normal right ventricular systolic function. Left Atrium: The left atrium is normal in size. Right Atrium: The right atrium is normal in size. Mitral Valve: Normal appearance and function of the mitral valve with trace physiologic regurgitation. Aortic Valve: Normal appearance of the aortic valve. No significant aortic stenosis or insufficiency. Tricuspid Valve: Normal appearance of the tricuspid valve. Unable to obtain RVSP due to minimal presence of tricuspid regurgitation. Pulmonic Valve: Pulmonic valve not well visualized. Pericardium: Normal pericardium with no significant pericardial effusion. Aorta: Normal aortic root. IVC: Dilated nferior vena cava without respiratory collapse, however, patient on ventilator. Conclusions 1.Hyperdynamic left ventricular systolic function. Normal left ventricular cavity size. Mild concentric left ventricular hypertrophy. Ejection fraction is visually estimated at 70 %. Tissue Doppler/Mitral Doppler indices are consistent with impaired relaxation (Stage I diastolic dysfunction). 2.Normal appearance and function of the mitral valve with trace physiologic regurgitation. 3.Normal appearance of the tricuspid valve. Unable to obtain RVSP due to minimal presence of tricuspid regurgitation. Electronically Signed By: Josue Marshall 03-Sep-2016 18:41:05 -0700 Patient Name: GORDO KIRBY Study Date: 03-Sep-2016 [id number]
[2016-09-03] MEDS: MAGNESIUM HYDROXIDE 30ML CUP PO SCH (21:00)
[2016-09-03] MEDS: ATORVASTATIN 20 MG TAB PO SCH (21:00)
[2016-09-03] MEDS: PHENYTOIN 100 MG CAP PO SCH (21:00)
--- NOTE | 2016-09-03 21:18 | PN ---
Date/Time of Note Date/Time of Note DATE: 09/03/16 TIME: 21:17 Assessment/Plan VTE Prophylaxis VTE Prophylaxis Intervention: other Lines/Catheters Urinary Cath still in place: Yes Reason Cath still needed: other (indicate) Assessment/Plan Chief Complaint/Hosp Course IMPRESSION: 1. Status post acute hypoxic respiratory failure due to choking episode. 2. The patient has ventilator dependent respiratory failure and urinary tract infection. 3. The patient has hyperglycemia, leukocytosis, and thrombocytopenia. 4. The patient has a history of psychiatric disorder. PLAN PER PULMONARY AND CARDIO Problems: Subjective 24 Hr Interval Summary Subjective hx not possible: other (ON VENT AWAKE) Exam/Review of Systems Vital Signs Vitals Vital Signs Date Time Temp Pulse Resp B/P Pulse Ox O2 Delivery O2 Flow Rate FiO2 09/03/16 19:30 98.6 92 17 90/66 Mechanical Ventilator 09/03/16 17:33 100 40 Intake and Output 09/02/16 09/02/16 09/03/16 15:00 23:00 07:00 Output Total 500 ml Balance -500 ml Exam Respiratory: clear to auscultation Cardiovascular: regular rate and rhythm Gastrointestinal: soft Musculoskeletal: nl extremities to inspection Extremities: normal pulses Neurological: CIVIL ESTIMATOR II-XII intact Results Result Diagram: 09/03/16 0536 09/03/16 0536 Results 24 hrs Laboratory Tests Test 09/03/16 01:20 09/03/16 05:36 Troponin I 0.249 *H White Blood Count 10.6 Red Blood Count 3.75 L Hemoglobin 12.2 L Hematocrit 35.1 L Mean Corpuscular Volume 93.6 Mean Corpuscular Hemoglobin 32.5 Mean Corpuscular Hemoglobin Concent 34.8 Red Cell Distribution Width 11.9 Platelet Count 102 #L Mean Platelet Volume 12.2 H Neutrophils % 80.4 H Lymphocytes % 14.1 L Monocytes % 4.9 Eosinophils % 0.1 Basophils % 0.1 Nucleated Red Blood Cells % 0.0 Neutrophils # 8.5 H Lymphocytes # 1.5 Monocytes # 0.5 Eosinophils # 0.0 Basophils # 0.0 Nucleated Red Blood Cells # 0.0 Sodium Level 133 L Potassium Level 4.5 Chloride Level 102 Carbon Dioxide Level 24 Anion Gap 12 # Blood Urea Nitrogen 21 H Creatinine 1.03 Glucose Level 223 H Calcium Level 8.3 L Total Bilirubin 0.4 Direct Bilirubin 0.00 Indirect Bilirubin 0.4 Aspartate Amino Transf (AST/SGOT) 34 Alanine Aminotransferase (ALT/SGPT) 43 Alkaline Phosphatase 62 Total Protein 6.9 # Albumin 3.2 L Globulin 3.70 H Albumin/Globulin Ratio 0.86 SALVATORE CALZADA MD Sep 03, 2016 21:18
[2016-09-03 23:30] VITALS: TEMP 98.9
[2016-09-04] VITALS (73 sets, daily range): BP systolic 84–145; BP diastolic 60–100; PULSE 88–114; RESP 4–22; Ht 182.9 cm; Wt 85.5 kg
[2016-09-04] MEDS ORDERED: SUCCINYLCHOLINE CHLORIDE 100 MG/5 ML SYG IV ONE
[2016-09-04] MEDS ORDERED: ETOMIDATE 20 MG INJ ONE
[2016-09-04] MEDS ORDERED: MIDAZOLAM (DRIP) 50 mg/50 mL 50 ML IV SCH (00:45)
[2016-09-04] MEDS: METHYLPREDNISOLONE 125 MG INJ IV SCH ×5 (05:00→18:00)
[2016-09-04 06:08] LABS: ADD SCAN DIFF NO
[2016-09-04 06:19] LABS: ABNORMAL IP MESSAGE 1; BASOPHILS % 0.2 % (0.0-2.0); EOSINOPHILS % 0.3 % (0.0-7.0); HEMATOCRIT 33.9 % (42.0-52.0); HEMOGLOBIN 11.5 g/dl (14.0-18.0); LYMPHOCYTES # 2.5 10^3/ul (0.8-2.9); LYMPHOCYTES % 21.4 % (15.0-51.0); MEAN CORPUSCULAR HEMOGLOBIN 32.3 pg (29.0-33.0); MEAN CORPUSCULAR HGB CONC 33.9 g/dl (32.0-37.0); MEAN CORPUSCULAR VOLUME 95.2 fl (82.0-101.0); MEAN PLATELET VOLUME 12.8 fl (7.4-10.4); MONOCYTE # 1.3 10^3/ul (0.3-0.9); MONOCYTES % 11.1 % (0.0-11.0); NEUTROPHIL # 7.8 10^3/ul (1.6-7.5); NEUTROPHILS % 66.7 % (39.0-77.0); PLATELET COUNT 96 10^3/UL (140-415); RED BLOOD COUNT 3.56 10^6/ul (4.70-6.10); WHITE BLOOD COUNT 11.6 10^3/ul (4.8-10.8)
[2016-09-04 06:23] LABS: ALBUMIN 3.2 g/dl (3.3-4.9)
[2016-09-04 06:25] LABS: BILIRUBIN,INDIRECT 0.3 mg/dl (0-1.1); BILIRUBIN,TOTAL 0.3 mg/dl (0.2-1.3); CREATININE 1.15 mg/dl (0.61-1.24)
[2016-09-04 06:26] LABS: ALBUMIN/GLOBULIN RATIO 0.84; CALCIUM 8.6 mg/dl (8.4-10.2)
--- NOTE | 2016-09-04 07:37 | CONS ---
DATE OF ADMISSION: 09/04/2016 DATE OF CONSULTATION: REFERRING PHYSICIAN: Sourav Calzada MD REASON FOR EVALUATION: Abnormal EKG, first-degree AV block, right bundle branch block. HISTORY OF PRESENT ILLNESS: Mr. Miller is a 60-year-old gentleman with hypertension, dyslipidemia, hi story of coronary artery disease, history of seizure disorder who was brought into the hospital for evaluation of altered mental status. The patient had a respiratory arrest. He required intubation in the field and brought to emergency room with a GCS of 3. The patient apparently had stopped carmencita thing ____ with CPR administered, but no other events are clear to me at this point. The patient is in first-degree AV block with right bundle branch block with some nonspecific ST changes. His bloo d pressure is stable now. He appears to respond well to intubation and respirator support. The pat ient will be transferred to intensive care unit. For now, conservative therapy is maintained. We w ill obtain a 2D echo and follow up with a 12-lead EKG. The patient will be ruled out for acute isch emia. Other than that, conservative therapy is expected at this point. PAST MEDICAL HISTORY: 1. Hypertension. 2. Dyslipidemia. 3. History of coronary artery disease. 4. History of pain syndrome. 5. History of seizure disorder. ALLERGIES: NO KNOWN DRUG ALLERGIES. SOCIAL HISTORY: The patient does not smoke, does not drink, does not use any drugs. FAMILY HISTORY: Negative for sudden cardiac , premature coronary artery disease based on recor ds review. HOME MEDICATIONS: Include: 1. Tylenol. 2. ____. 3. Propranolol 10 mg once a day. 4. Phenytoin. 5. Gabapentin. 6. Magnesium oxide. 7. Atorvastatin. 8. Lactulose. 9. [place]-3 fatty acids. REVIEW OF SYSTEMS: Not able to obtain from patient. Based on the records reviewed: CONSTITUTIONAL: No fevers, no chills. Cardiac arrest, as described. HEENT: ____. CARDIAC: No chest pain reported. RESPIRATORY: Short of breath, acute, status post intubation. GASTROINTESTINAL: No nausea, vomiting, diarrhea, constipation. GENITOURINARY: No dysuria, hematuria, ____. NEUROLOGIC: Seizure disorder. PSYCHIATRIC: History of psychiatric illness. PHYSICAL EXAMINATION: VITAL SIGNS: Temperature is 98.4, heart rate is 87, blood pressure ____/74. GENERAL: He is a thin gentleman in no acute distress, alert x0, not aware of his condition now. HEAD: Normocephalic, atraumatic. Eyes anicteric. NECK: Supple. JVD 6 to 7 cm. There is no lymphadenopathy. HEART: Regular with soft holosystolic murmur at the apex. PMI is nondisplaced. There is no S3. LUNGS: Coarse at the bases. ABDOMEN: Distended. Bowel sounds are present. There is no hepatosplenomegaly. GENITOURINARY: Intact. EXTREMITIES: No cyanosis or edema. ECG read by me shows sinus rhythm, rate of ____, first degree AV block, right bundle branch block. LABORATORY DATA: White blood cells 10.6, hemoglobin is 12.2, platelets 102. INR is 1.3. Troponin was from 0.107 to 0.249. Sodium 133, BUN is 21, creatinine 1.06, glucose is 223. ASSESSMENT AND PLAN: 1. Status post respiratory arrest. The patient is status post respiratory arrest, now. His tropon ins trending up. Will check another set of troponins. For now, conservative therapy is expected. We will make sure the patient is on aspirin and follow expectantly. There is no indication for hepa rinization this point. 2. Coronary artery disease. The patient's possible history of coronary artery disease. Continue t o rule out for ischemia. A 2D echo is pending. 3. Respiratory arrest. The patient is status post respiratory arrest, now status post intubation. Responded well. 4. History of seizure disorder, possibly related his condition. Continue optimization as primary t eam. 5. Hyponatremia. Sodium was 133. No particular treatment is required. We will hydrate is indicat ed. 6. History of psychiatric illness. Continue to adjust therapy as warranted. 7. Abnormal EKG, right bundle branch block, first degree AV block noted, possibly chronic. Will ho ld off on a beta lucía. We will follow expectantly. I would like to thank Dr. Calzada for referring this patient for my evaluation. Dictated By: SANCHO GARCIA MD ML/NTS Conf#: [id number] DID#: [id number] CC: SOURAV CALZADA MD;*EndCC*
[2016-09-04] MEDS: GABAPENTIN 100 MG CAP PO SCH ×4 (09:00→20:58)
--- NOTE | 2016-09-04 10:07 | CONS ---
Date/Time of Note Date/Time of Note DATE: 09/04/16 TIME: 10:01 Consult Date/Type/Reason Admit Date/Time Sep 04, 2016 at 00:20 Initial Consult Date 09/03/16 Type of Consultation: Pulmonary/critical care Subjective Patient remains intubated sedated on mechanical ventilation Objective Vital Signs Date Time Temp Pulse Resp B/P Pulse Ox O2 Delivery O2 Flow Rate FiO2 09/04/16 09:30 94 16 133/85 100 09/04/16 09:00 Mechanical Ventilator 09/04/16 08:00 98.2 09/04/16 05:06 30 Intake and Output 09/03/16 09/03/16 09/04/16 15:00 23:00 07:00 Intake Total 45 ml Output Total 925 ml 640 ml Balance -925 ml -595 ml Exam PHYSICAL EXAMINATION GENERAL: Elderly gentleman, intubated on mechanical ventilation, opens eyes and appears somewhat agitated. Orally intubated. VITAL SIGNS: see below. HEENT: Pupils equal, round, and reactive to light. CARDIAC: S1, S2, no rales or wheezes CHEST: Diminished air entry bilaterally. ABDOMEN: Mildly distended. Bowel sounds present no guarding or rebound EXTREMITIES: No cyanosis, clubbing or edema. NEUROLOGIC: Generalized weakness Results/Medications Result Diagram: 09/04/16 0440 09/04/16 0440 Results 24 hrs Laboratory Tests Test 09/04/16 04:40 White Blood Count 11.6 H Red Blood Count 3.56 L Hemoglobin 11.5 L Hematocrit 33.9 L Mean Corpuscular Volume 95.2 Mean Corpuscular Hemoglobin 32.3 Mean Corpuscular Hemoglobin Concent 33.9 Red Cell Distribution Width 12.0 Platelet Count 96 L Mean Platelet Volume 12.8 H Neutrophils % 66.7 Lymphocytes % 21.4 Monocytes % 11.1 H Eosinophils % 0.3 Basophils % 0.2 Nucleated Red Blood Cells % 0.0 Neutrophils # 7.8 H Lymphocytes # 2.5 Monocytes # 1.3 H Eosinophils # 0.0 Basophils # 0.0 Nucleated Red Blood Cells # 0.0 Sodium Level 135 Potassium Level 4.0 Chloride Level 106 Carbon Dioxide Level 23 Anion Gap 10 Blood Urea Nitrogen 28 H Creatinine 1.15 Glucose Level 175 Calcium Level 8.6 Total Bilirubin 0.3 Direct Bilirubin 0.00 Indirect Bilirubin 0.3 Aspartate Amino Transf (AST/SGOT) 28 Alanine Aminotransferase (ALT/SGPT) 37 Alkaline Phosphatase 64 Total Protein 7.0 Albumin 3.2 L Globulin 3.80 H Albumin/Globulin Ratio 0.84 Medications Current Medications Atorvastatin Calcium (Lipitor) 20 mg QHS PO ; Start 09/03/16 at 21:00 Magnesium Hydroxide (Milk Of Mag) 30 ml QHS PO ; Start 09/03/16 at 21:00 Phenytoin 200 mg 200 mg HS PO ; Start 09/03/16 at 21:00 Midazolam HCl (Versed) 50 ml @ 1 mls/hr TITRATE IV Last administered on t 00:53; Admin Dose 7 MLS/HR; Start 09/04/16 at 00:45 Assessment/Plan Chief Complaint/Hosp Course Assessment 1. Possible aspiration pneumonia 2. Hypoxemic respiratory failure 3. History of seizure disorder 4. 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 Thrombocytopenia Plan 1. CPAP weaning trial 2. Antibiotics for aspiration pneumonia 3. Swallow evaluation postextubation 4. Cardiac recommendations 5. DVT GI prophylaxis Disposition Continue ICU care today Problems: KAT[facility] SEAMAN [facility] Sep 04, 2016 10:07
[2016-09-04 12:01] LABS: AADO2 Arterial 48.9 mmHg (7.0-24.0); Allen Test ACCEPTAB; Arterial Base Excess -0.4 mmol/L (-3.0-3); Arterial COHb 0.3 % (0.0-3.0); Arterial Fraction of Oxyhgb 97.4 % (93.0-99.0); Arterial HCO3 21.4 mmol/L (22.0-26.0); Arterial MetHb 0.6 % (0.0-1.5); Arterial Total Hemglobin 14.1 g/dl (12.0-18.0); Blood Gas PS 10; MODE VENT - CPAP
--- NOTE | 2016-09-04 12:03 | CONS ---
Date/Time of Note Date/Time of Note DATE: 09/04/16 TIME: 11:55 Assessment/Plan Assessment/Plan Chief Complaint/Hosp Course IMp: 1.Positive troponin-minimal ? 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 Possible PNA Recc: -Tele -serial ecg's -Continue dilantin -Resume asa -Would consider resumption of abx's/f/u cx data Problems: Consultation Date/Type/Reason Admit Date/Time Sep 04, 2016 at 00:20 Initial Consult Date 09/03/16 Type of Consultation: Cardiology Reason for Consultation abnl ecg Referring Provider: SALVATORE CALZADA MD Exam/Review of Systems Vital Signs Vitals Vital Signs Date Time Temp Pulse Resp B/P Pulse Ox O2 Delivery O2 Flow Rate FiO2 09/04/16 11:45 101 14 121/77 100 09/04/16 11:03 30 09/04/16 11:00 Mechanical Ventilator 09/04/16 08:00 98.2 Intake and Output 09/03/16 09/03/16 09/04/16 15:00 23:00 07:00 Intake Total 45 ml Output Total 925 ml 640 ml Balance -925 ml -595 ml Exam Review of Systems: CONSTITUTIONAL: No fevers, chills. PULMONARY: intubated CARDIOVASCULAR: No obvious chest pain/palpitations GASTROINTESTINAL: No nausea/vomiting. GENITOURINARY: No hematuria/dysuria. MUSCULOSKELETAL: No obvious myagias/arthalgias. PSYCHIATRIC: The patient denies depression. NEUROLOGIC: sedated Constitutional: alert Psych: no complaints Head: normocephalic ENMT: mucosa pink and moist Neck: jvd (9 cm water), supple Respiratory: diminished breath sounds (at bases/B) Cardiovascular: regular rate and rhythm Gastrointestinal: non-tender, soft Musculoskeletal: muscle tone (normal) Extremities: edema (none) Neurological: other (No focal deficits) Results Result Diagram: 09/04/16 0440 09/04/16 0440 Results 24 hrs Laboratory Tests Test 09/04/16 04:40 White Blood Count 11.6 H Red Blood Count 3.56 L Hemoglobin 11.5 L Hematocrit 33.9 L Mean Corpuscular Volume 95.2 Mean Corpuscular Hemoglobin 32.3 Mean Corpuscular Hemoglobin Concent 33.9 Red Cell Distribution Width 12.0 Platelet Count 96 L Mean Platelet Volume 12.8 H Neutrophils % 66.7 Lymphocytes % 21.4 Monocytes % 11.1 H Eosinophils % 0.3 Basophils % 0.2 Nucleated Red Blood Cells % 0.0 Neutrophils # 7.8 H Lymphocytes # 2.5 Monocytes # 1.3 H Eosinophils # 0.0 Basophils # 0.0 Nucleated Red Blood Cells # 0.0 Sodium Level 135 Potassium Level 4.0 Chloride Level 106 Carbon Dioxide Level 23 Anion Gap 10 Blood Urea Nitrogen 28 H Creatinine 1.15 Glucose Level 175 Calcium Level 8.6 Total Bilirubin 0.3 Direct Bilirubin 0.00 Indirect Bilirubin 0.3 Aspartate Amino Transf (AST/SGOT) 28 Alanine Aminotransferase (ALT/SGPT) 37 Alkaline Phosphatase 64 Total Protein 7.0 Albumin 3.2 L Globulin 3.80 H Albumin/Globulin Ratio 0.84 Medications Medications Current Medications Atorvastatin Calcium (Lipitor) 20 mg QHS PO ; Start 09/03/16 at 21:00 Magnesium Hydroxide (Milk Of Mag) 30 ml QHS PO ; Start 09/03/16 at 21:00 Phenytoin 200 mg 200 mg HS PO ; Start 09/03/16 at 21:00 Midazolam HCl (Versed) 50 ml @ 1 mls/hr TITRATE IV Last administered on t 00:53; Admin Dose 7 MLS/HR; Start 09/04/16 at 00:45 JALIL GLASS Sep 04, 2016 12:03
[2016-09-04] MEDS: VALPROATE INJ 500 MG in DEXTROSE 5% 50 ML IVPB SCH ×3 (13:00→21:35)
[2016-09-04] MEDS: ASPIRIN 325 MG TAB PO SCH (13:00)
[2016-09-04] MEDS: DEXTROSE 5%-0.45% NACL 1,000 ML IV SCH ×2 (15:44→16:00)
[2016-09-04] MEDS: CHOLECALCIFEROL 1,000 UNIT TAB PO SCH (16:08)
[2016-09-04] MEDS: CEFTRIAXONE 1 GM/50 ML (PMX) 50 ML IVPB SCH (16:08)
[2016-09-04] MEDS: ASPIRIN (EC) 325 MG TAB PO SCH (16:11)
[2016-09-04] MEDS: ALBUTEROL/IPRATROPIUM (NEB) 3 ML AMP HHN SCH ×2 (16:51→20:36)
[2016-09-04] MEDS: OXCARBAZEPINE 300 MG TAB PO SCH ×2 (17:54→21:03)
[2016-09-04 19:02] LABS: CK-MB 0.41 ng/ml (0.0-2.4)
[2016-09-04 19:04] LABS: TROPONIN-I 0.023 ng/ml (0.00-0.12)
--- NOTE | 2016-09-04 20:11 | PN ---
Date/Time of Note Date/Time of Note DATE: 09/04/16 TIME: 20:10 Assessment/Plan VTE Prophylaxis VTE Prophylaxis Intervention: other Lines/Catheters IV [facility] Type (from [facility]): Peripheral IV Urinary Cath still in place: Yes Reason Cath still needed: other (indicate) Assessment/Plan Chief Complaint/Hosp Course IMPRESSION: 1. Status post acute hypoxic respiratory failure due to choking episode. 2. The patient has ventilator dependent respiratory failure and urinary tract infection. 3. The patient has hyperglycemia, leukocytosis, and thrombocytopenia. 4. The patient has a history of psychiatric disorder. PLAN PER PULMONARY AND CARDIO weaning Problems: Subjective 24 Hr Interval Summary Cardiovascular: no complaints Gastrointestinal: no complaints Exam/Review of Systems Vital Signs Vitals Vital Signs Date Time Temp Pulse Resp B/P Pulse Ox O2 Delivery O2 Flow Rate FiO2 09/04/16 19:30 97.8 89 14 115/77 100 09/04/16 19:00 Room Air 09/04/16 18:00 2.0 09/04/16 11:03 30 Intake and Output 09/03/16 09/03/16 09/04/16 15:00 23:00 07:00 Intake Total 45 ml Output Total 925 ml 640 ml Balance -925 ml -595 ml Exam Respiratory: clear to auscultation Cardiovascular: regular rate and rhythm Gastrointestinal: soft Musculoskeletal: nl extremities to inspection Extremities: normal pulses Results Result Diagram: 09/04/16 0440 09/04/16 0440 Results 24 hrs Laboratory Tests Test 09/04/16 04:40 09/04/16 11:45 09/04/16 12:05 09/04/16 18:24 White Blood Count 11.6 H Red Blood Count 3.56 L Hemoglobin 11.5 L Hematocrit 33.9 L Mean Corpuscular Volume 95.2 Mean Corpuscular Hemoglobin 32.3 Mean Corpuscular Hemoglobin Concent 33.9 Red Cell Distribution Width 12.0 Platelet Count 96 L Mean Platelet Volume 12.8 H Neutrophils % 66.7 Lymphocytes % 21.4 Monocytes % 11.1 H Eosinophils % 0.3 Basophils % 0.2 Nucleated Red Blood Cells % 0.0 Neutrophils # 7.8 H Lymphocytes # 2.5 Monocytes # 1.3 H Eosinophils # 0.0 Basophils # 0.0 Nucleated Red Blood Cells # 0.0 Sodium Level 135 Potassium Level 4.0 Chloride Level 106 Carbon Dioxide Level 23 Anion Gap 10 Blood Urea Nitrogen 28 H Creatinine 1.15 Glucose Level 175 Calcium Level 8.6 Total Bilirubin 0.3 Direct Bilirubin 0.00 Indirect Bilirubin 0.3 Aspartate Amino Transf (AST/SGOT) 28 Alanine Aminotransferase (ALT/SGPT) 37 Alkaline Phosphatase 64 Total Protein 7.0 Albumin 3.2 L Globulin 3.80 H Albumin/Globulin Ratio 0.84 Blood Gas Specimen Source Blood arterial Arterial Blood Date Drawn 09/04/2016 11:35:03 AM Arterial Blood pH (Temp corrected) 7.506 H Arterial Blood pCO2 (Temp correct) 27.7 L Arterial Blood pO2 (Temp corrected) 132.5 H Arterial Blood HCO3 21.4 L Arterial Blood Base Excess -0.4 Arterial Blood Oxygen Saturation 98.3 H Remi Test ACCEPTAB Arterial Blood Gas Puncture Site Right Radial Arterial Blood Carboxyhemoglobin 0.3 Arterial Blood Methemoglobin 0.6 Blood Gas A-a O2 Differential 48.9 H Oxyhemoglobin Percent 97.4 Total Hemoglobin 14.1 Blood Gas Temperature 37.0 Blood Gas Actual Respiration Rate 19 Blood Gas Modality VENT - CPAP FiO2 30.0 Blood Gas Low PEEP Setting 5.0 Blood Gas Pressure Support 10 Blood Gas Notified Whom JLD Blood Gas Notified Time 09/04/2016 12:00:49 PM Troponin I 0.027 0.023 Creatine Kinase 90 Creatine Kinase Index 0.5 Creatinine Kinase MB (Mass) 0.41 Medications Medications Current Medications Flumazenil (Romazicon) 0.2 mg Q1M PRN IV BENZODIAZEPINE OVERDOSE; Start at 20:00 Naloxone HCl (Narcan) 0.4 mg Q3M PRN IV DECREASED REPIRATORY RATE; Start at 20:00 Ondansetron HCl (Zofran Inj) 4 mg Q6H PRN IV NAUSEA AND/OR VOMITING; Start 09/02 at 20:00 Methylprednisolone Sodium Succinate (Solu-Medrol) 60 mg Q6 IV Last administered on 09/04/16t 17:54; Admin Dose 60 MG; Start 09/03/16 at 00:00 Nitroglycerin (Nitroglycerin (Sl Tab) 0.4 Mg) 1 tab Q5M PRN SL CHEST PAIN; Start 09/02/16 at 20:00 Acetaminophen (Tylenol Supp) 650 mg Q4H PRN [place] PAIN LEVEL 1-3 OR FEVER; Start 09/02/16 at 20:00 Docusate Sodium (Colace) 100 mg Q12H PRN PO CONSTIPATION; Start 09/02/16 at 20: 00 Magnesium Hydroxide (Milk Of Mag) 30 ml DAILY PRN PO CONSTIPATION; Start at 20:00 Bisacodyl (Dulcolax) 5 mg DAILY PRN PO CONSTIPATION; Start 09/02/16 at 20:00 Bisacodyl (Dulcolax Supp) 10 mg DAILY PRN [place] CONSTIPATION; Start 09/02/16 at 20: 00 Acetaminophen (Tylenol Tab) 650 mg Q4H PRN PO MILD PAIN LEVEL 1-3; Start at 00:00 Atorvastatin Calcium (Lipitor) 20 mg QHS PO ; Start 09/03/16 at 21:00 Bisacodyl (Dulcolax) 10 mg Q2D PRN PO CONSTIPATION; Start 09/03/16 at 00:00 Cholecalciferol (Vitamin D) 1,000 unit QAM PO Last administered on 09/04/16 16: 08; Admin Dose 1,000 UNIT; Start 09/03/16 at 09:00 Divalproex Sodium (Depakote Sprinkle) 500 mg BID PO ; Start 09/03/16 at 09:00; Status Future Hold Gabapentin (Neurontin) 100 mg TID PO Last administered on 09/04/16 17:54; Admin Dose 100 MG; Start 09/03/16 at 09:00 Magnesium Hydroxide (Milk Of Mag) 30 ml QHS PO ; Start 09/03/16 at 21:00 Oxcarbazepine (Trileptal) 300 mg BID PO Last administered on 09/04/16 17:54; Admin Dose 300 MG; Start 09/03/16 at 09:00 Phenytoin (Dilantin) 200 mg HS PO ; Start 09/03/16 at 21:00 Aspirin 325 mg 325 mg DAILY PO ; Start 09/03/16 at 09:00 Ceftriaxone Sodium 50 ml @ 100 mls/hr DAILY IVPB Last administered on 16:08; Admin Dose 100 MLS/HR; Start 09/03/16 at 09:00 Dextrose/Sodium Chloride 1,000 ml @ 50 mls/hr Q20H IV Last administered on 09/04 15:44; Admin Dose 50 MLS/HR; Start 09/03/16 at 00:00 Valproate Sodium 500 mg/Dextrose 55 ml @ 55 mls/hr BID IVPB Last administered on 09/04/16 16:07; Admin Dose 55 MLS/HR; Start 09/03/16 at 12:00 Midazolam HCl (Versed) 50 ml @ 1 mls/hr TITRATE IV Last administered on 00:53; Admin Dose 7 MLS/HR; Start 09/04/16 at 00:45 Aspirin (Ecotrin) 325 mg DAILY PO Last administered on 09/04/16 16:11; Admin Dose 325 MG; Start 09/04/16 at 13:00 SALVATORE CALZADA MD Sep 04, 2016 20:11
[2016-09-04] MEDS: MAGNESIUM HYDROXIDE 30ML CUP PO SCH (20:57)
[2016-09-04] MEDS: ATORVASTATIN 20 MG TAB PO SCH (20:58)
[2016-09-04] MEDS: PHENYTOIN 100 MG CAP PO SCH (21:03)
[2016-09-04] MEDS: ACETAMINOPHEN 325 MG TAB PO PRN (21:53)
[2016-09-05] VITALS (66 sets, daily range): BP systolic 91–137; BP diastolic 56–92; PULSE 77–111; RESP 11–24
[2016-09-05] MEDS: METHYLPREDNISOLONE 125 MG INJ IV SCH ×4 (00:12→20:42)
[2016-09-05 01:26] LABS: CK-MB 0.62 ng/ml (0.0-2.4)
[2016-09-05 01:27] LABS: TROPONIN-I 0.023 ng/ml (0.00-0.12)
[2016-09-05] MEDS: ALBUTEROL/IPRATROPIUM (NEB) 3 ML AMP HHN SCH ×5 (01:33→20:09)
[2016-09-05 06:24] LABS: ADD SCAN DIFF NO
[2016-09-05 06:28] LABS: ABNORMAL IP MESSAGE 1; BASOPHILS % 0.1 % (0.0-2.0); HEMATOCRIT 33.4 % (42.0-52.0); HEMOGLOBIN 11.3 g/dl (14.0-18.0); LYMPHOCYTES # 1.1 10^3/ul (0.8-2.9); LYMPHOCYTES % 13.2 % (15.0-51.0); MEAN CORPUSCULAR HEMOGLOBIN 32.6 pg (29.0-33.0); MEAN CORPUSCULAR HGB CONC 33.8 g/dl (32.0-37.0); MEAN CORPUSCULAR VOLUME 96.3 fl (82.0-101.0); MEAN PLATELET VOLUME 12.8 fl (7.4-10.4); MONOCYTE # 0.4 10^3/ul (0.3-0.9); MONOCYTES % 4.1 % (0.0-11.0); NEUTROPHILS % 82.1 % (39.0-77.0); PLATELET COUNT 97 10^3/UL (140-415); RED BLOOD COUNT 3.47 10^6/ul (4.70-6.10); RED CELL DISTRIBUTION WIDTH 11.8 % (11.5-14.5); WHITE BLOOD COUNT 8.5 10^3/ul (4.8-10.8)
[2016-09-05 06:59] LABS: POTASSIUM 4.4 mmol/L (3.5-5.1)
[2016-09-05 07:01] LABS: CREATININE 0.93 mg/dl (0.61-1.24)
[2016-09-05 07:02] LABS: CALCIUM 8.6 mg/dl (8.4-10.2); MAGNESIUM 1.9 mg/dl (1.7-2.5); PHOSPHORUS 3.8 mg/dl (2.5-4.9)
[2016-09-05 07:58] LABS: AADO2 Arterial 48.2 mmHg (7.0-24.0); Arterial Base Excess -0.6 mmol/L (-3.0-3); Arterial COHb 0.3 % (0.0-3.0); Arterial Fraction of Oxyhgb 92.9 % (93.0-99.0); Arterial MetHb 0.4 % (0.0-1.5); Arterial Total Hemglobin 13.2 g/dl (12.0-18.0); MODE ROOM AIR
[2016-09-05] MEDS: VALPROATE INJ 500 MG in DEXTROSE 5% 50 ML IVPB SCH ×3 (09:00→20:41)
[2016-09-05] MEDS: ASPIRIN (EC) 325 MG TAB PO SCH (09:00)
[2016-09-05] MEDS: OXCARBAZEPINE 300 MG TAB PO SCH ×2 (09:00→20:43)
[2016-09-05] MEDS: CHOLECALCIFEROL 1,000 UNIT TAB PO SCH (09:21)
[2016-09-05] MEDS: ASPIRIN 325 MG TAB PO SCH (09:21)
[2016-09-05] MEDS: GABAPENTIN 100 MG CAP PO SCH ×3 (09:21→20:43)
[2016-09-05] MEDS: CEFTRIAXONE 1 GM/50 ML (PMX) 50 ML IVPB SCH (09:22)
[2016-09-05] MEDS ORDERED: GLUCOSE GEL 15 GRAM TUBE BUCCAL PRN (09:30)
[2016-09-05] MEDS ORDERED: DEXTROSE 50% 50 ML SYRINGE IV PRN ×2 (09:30)
[2016-09-05] MEDS ORDERED: GLUCOSE GEL 15 GRAM TUBE PO PRN ×2 (09:30)
[2016-09-05] MEDS ORDERED: HYPOGLYCEMIA PROTOCOL when Glucose is <70 mg/dL or symptomatic <90 mg/dL. XX ONE (09:30)
[2016-09-05] MEDS ORDERED: GLUCAGON 1 MG INJ IM PRN (09:30)
--- NOTE | 2016-09-05 09:36 | CONS ---
Date/Time of Note Date/Time of Note DATE: 09/05/16 TIME: 09:34 Consult Date/Type/Reason Admit Date/Time Sep 04, 2016 at 00:20 Initial Consult Date 09/03/16 Type of Consultation: pulmonary ICU Ordering Provider: SALVATORE CALZADA MD Subjective Patient awake alert oriented comfortable this morning no respiratory distress Objective Vital Signs Date Time Temp Pulse Resp B/P Pulse Ox O2 Delivery O2 Flow Rate FiO2 09/05/16 08:30 99 18 128/76 90 Room Air 09/05/16 08:23 21 09/05/16 08:00 97.6 09/04/16 18:00 2.0 Intake and Output 09/04/16 09/04/16 09/05/16 14:59 22:59 06:59 Intake Total 24 ml 455 ml 400 ml Output Total 365 ml 330 ml 320 ml Balance -341 ml 125 ml 80 ml Exam GENERAL: Elderly gentleman awake alert comfortable, no respiratory distress VITAL SIGNS: per chart NECK: Supple. No JVD or lymphadenopathy. CARDIAC EXAM: S1, S2. No added sounds or murmurs. CHEST: Diminished air entry both lung bases ABDOMEN: Soft, nontender. No guarding or rebound bowel sounds present EXTREMITIES: No cyanosis, clubbing, edema +1 NEUROLOGIC: Generalized weakness. No focal deficits. Results/Medications Result Diagram: 09/05/16 0600 09/05/16 0600 Results 24 hrs Laboratory Tests Test 09/04/16 11:45 09/04/16 12:05 09/04/16 18:24 09/05/16 00:50 Blood Gas Specimen Source Blood arterial Arterial Blood Date Drawn 09/04/2016 11:35:03 AM Arterial Blood pH (Temp corrected) 7.506 H Arterial Blood pCO2 (Temp correct) 27.7 L Arterial Blood pO2 (Temp corrected) 132.5 H Arterial Blood HCO3 21.4 L Arterial Blood Base Excess -0.4 Arterial Blood Oxygen Saturation 98.3 H Remi Test ACCEPTAB Arterial Blood Gas Puncture Site Right Radial Arterial Blood Carboxyhemoglobin 0.3 Arterial Blood Methemoglobin 0.6 Blood Gas A-a O2 Differential 48.9 H Oxyhemoglobin Percent 97.4 Total Hemoglobin 14.1 Blood Gas Temperature 37.0 Blood Gas Actual Respiration Rate 19 Blood Gas Modality VENT - CPAP FiO2 30.0 Blood Gas Low PEEP Setting 5.0 Blood Gas Pressure Support 10 Blood Gas Notified Whom JLD Blood Gas Notified Time 09/04/2016 12:00:49 PM Troponin I 0.027 0.023 0.023 Creatine Kinase 90 121 Creatine Kinase Index 0.5 0.5 Creatinine Kinase MB (Mass) 0.41 0.62 Test 09/05/16 06:00 09/05/16 07:00 White Blood Count 8.5 # Red Blood Count 3.47 L Hemoglobin 11.3 L Hematocrit 33.4 L Mean Corpuscular Volume 96.3 Mean Corpuscular Hemoglobin 32.6 Mean Corpuscular Hemoglobin Concent 33.8 Red Cell Distribution Width 11.8 Platelet Count 97 L Mean Platelet Volume 12.8 H Neutrophils % 82.1 H Lymphocytes % 13.2 L Monocytes % 4.1 Eosinophils % 0.0 Basophils % 0.1 Nucleated Red Blood Cells % 0.0 Neutrophils # 7.0 Lymphocytes # 1.1 Monocytes # 0.4 Eosinophils # 0.0 Basophils # 0.0 Nucleated Red Blood Cells # 0.0 Sodium Level 138 Potassium Level 4.4 Chloride Level 101 Carbon Dioxide Level 25 Anion Gap 16 Blood Urea Nitrogen 26 H Creatinine 0.93 Glucose Level 305 H Calcium Level 8.6 Phosphorus Level 3.8 Magnesium Level 1.9 Blood Gas Specimen Source Blood arterial Arterial Blood Date Drawn 09/05/2016 7:40:41 AM Arterial Blood pH (Temp corrected) 7.474 H Arterial Blood pCO2 (Temp correct) 30.7 L Arterial Blood pO2 (Temp corrected) 64.8 L Arterial Blood HCO3 22.0 Arterial Blood Base Excess -0.6 Arterial Blood Oxygen Saturation 93.6 L Remi Test N/A Arterial Blood Gas Puncture Site Right Brachial Arterial Blood Carboxyhemoglobin 0.3 Arterial Blood Methemoglobin 0.4 Blood Gas A-a O2 Differential 48.2 H Oxyhemoglobin Percent 92.9 L Total Hemoglobin 13.2 Blood Gas Temperature 37.0 Blood Gas Modality ROOM AIR FiO2 21.0 Blood Gas Notified Whom D Blood Gas Notified Time 09/05/2016 7:58:15 AM Medications Current Medications Flumazenil (Romazicon) 0.2 mg Q1M PRN IV BENZODIAZEPINE OVERDOSE; Start at 20:00 Naloxone HCl (Narcan) 0.4 mg Q3M PRN IV DECREASED REPIRATORY RATE; Start at 20:00 Ondansetron HCl (Zofran Inj) 4 mg Q6H PRN IV NAUSEA AND/OR VOMITING; Start 09/02 at 20:00 Methylprednisolone Sodium Succinate (Solu-Medrol) 60 mg Q6 IV Last administered on 09/05/16 05:44; Admin Dose 60 MG; Start 09/03/16 at 00:00 Nitroglycerin (Nitroglycerin (Sl Tab) 0.4 Mg) 1 tab Q5M PRN SL CHEST PAIN; Start 09/02/16 at 20:00 Acetaminophen (Tylenol Supp) 650 mg Q4H PRN [place] PAIN LEVEL 1-3 OR FEVER; Start 09/02/16 at 20:00 Docusate Sodium (Colace) 100 mg Q12H PRN PO CONSTIPATION; Start 09/02/16 at 20: 00 Magnesium Hydroxide (Milk Of Mag) 30 ml DAILY PRN PO CONSTIPATION; Start at 20:00 Bisacodyl (Dulcolax) 5 mg DAILY PRN PO CONSTIPATION; Start 09/02/16 at 20:00 Bisacodyl (Dulcolax Supp) 10 mg DAILY PRN [place] CONSTIPATION; Start 09/02/16 at 20: 00 Acetaminophen (Tylenol Tab) 650 mg Q4H PRN PO MILD PAIN LEVEL 1-3 Last administered on 09/04/16 21:53; Admin Dose 650 MG; Start 09/03/16 at 00:00 Atorvastatin Calcium (Lipitor) 20 mg QHS PO Last administered on 09/04/16 20:58 ; Admin Dose 20 MG; Start 09/03/16 at 21:00 Bisacodyl (Dulcolax) 10 mg Q2D PRN PO CONSTIPATION; Start 09/03/16 at 00:00 Cholecalciferol (Vitamin D) 1,000 unit QAM PO Last administered on 09/05/16 09: 21; Admin Dose 1,000 UNIT; Start 09/03/16 at 09:00 Divalproex Sodium (Depakote Sprinkle) 500 mg BID PO ; Start 09/03/16 at 09:00; Status Future Hold Gabapentin (Neurontin) 100 mg TID PO Last administered on 09/05/16 09:21; Admin Dose 100 MG; Start 09/03/16 at 09:00 Magnesium Hydroxide (Milk Of Mag) 30 ml QHS PO Last administered on 09/04/16 20 :57; Admin Dose 30 ML; Start 09/03/16 at 21:00 Oxcarbazepine (Trileptal) 300 mg BID PO Last administered on 09/04/16 21:03; Admin Dose 300 MG; Start 09/03/16 at 09:00 Phenytoin (Dilantin) 200 mg HS PO Last administered on 09/04/16 21:03; Admin Dose 200 MG; Start 09/03/16 at 21:00 Aspirin 325 mg 325 mg DAILY PO Last administered on 09/05/16 09:21; Admin Dose 325 MG; Start 09/03/16 at 09:00 Ceftriaxone Sodium 50 ml @ 100 mls/hr DAILY IVPB Last administered on 09:22; Admin Dose 100 MLS/HR; Start 09/03/16 at 09:00 Dextrose/Sodium Chloride 1,000 ml @ 50 mls/hr Q20H IV Last administered on 09/04 15:44; Admin Dose 50 MLS/HR; Start 09/03/16 at 00:00 Valproate Sodium 500 mg/Dextrose 55 ml @ 55 mls/hr BID IVPB Last administered on 09/04/16 21:35; Admin Dose 55 MLS/HR; Start 09/03/16 at 12:00 Midazolam HCl (Versed) 50 ml @ 1 mls/hr TITRATE IV Last administered on 00:53; Admin Dose 7 MLS/HR; Start 09/04/16 at 00:45 Aspirin (Ecotrin) 325 mg DAILY PO Last administered on 09/04/16 16:11; Admin Dose 325 MG; Start 09/04/16 at 13:00 Insulin Aspart (Novolog Insulin Pen) NOVOLOG *MILD* ALGORI... Q4 SC ; Start 09/05 at 13:00 Miscellaneous Information 1 ea NOTE XX ; Start 09/05/16 at 09:30 Glucose (Glutose) 15 gm Q15M PRN PO DECREASED GLUCOSE; Start 09/05/16 at 09:30 Glucose (Glutose) 22.5 gm Q15M PRN PO DECREASED GLUCOSE; Start 09/05/16 at 09:30 Dextrose (D50w Syringe) 25 ml Q15M PRN IV DECREASED GLUCOSE; Start 09/05/16 at 09:30 Dextrose (D50w Syringe) 50 ml Q15M PRN IV DECREASED GLUCOSE; Start 09/05/16 at 09:30 Glucagon (Glucagen) 1 mg Q15M PRN IM DECREASED GLUCOSE; Start 09/05/16 at 09:30 Glucose (Glutose) 15 gm Q15M PRN BUCCAL DECREASED GLUCOSE; Start 09/05/16 at 09: 30 Assessment/Plan Chief Complaint/Hosp Course Assessment 1. Possible aspiration pneumonia 2. Hypoxemic respiratory failure 3. History of seizure disorder 4. 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 Thrombocytopenia Plan 1. Incentive spirometry and bronchodilators every 6 hours 2. Consider de-escalation of antibiotics 3. Aspiration precautions and speech therapy recommendations, modified diet 4. Cardiac recommendations 5. DVT GI prophylaxis Disposition Consider transfer to [facility] surge Problems: KATINA SEAMAN MD, [facility] Sep 05, 2016 09:36
--- NOTE | 2016-09-05 09:43 | RADRPT ---
PROCEDURE: XR Chest. CLINICAL INDICATION: Pneumonia TECHNIQUE: A single AP view of the chest was obtained. COMPARISON: Chest x-ray dated 09/02/2016 FINDINGS: The endotracheal tube has been removed. Lung volumes are somewhat low. No focal airspace opacification, pleural effusion or pneumothorax is seen. The cardiomediastinal silhouette is within normal limits for size. Calcifications are seen w ithin the aortic arch. The osseous structures are unremarkable. IMPRESSION: 1. No radiographic evidence of acute cardiopulmonary disease. no significant interval change. 2. Aortic atherosclerosis. RPTAT: HH .Zarina Beltre MD, MD Date Time Electronically viewed and signed by .Zarina Beltre MD, MD on 09/05/2016 09:43 .G/
[2016-09-05] MEDS: DEXTROSE 5%-0.45% NACL 1,000 ML IV SCH (12:55)
--- NOTE | 2016-09-05 13:13 | CONS ---
Date/Time of Note Date/Time of Note DATE: 09/05/16 TIME: 13:11 Assessment/Plan Assessment/Plan Chief Complaint/Hosp Course IMp: 1.Positive troponin-minimal ? 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 Possible PNA Recc: -Tele -serial ecg's -Continue dilantin -Resume asa -Contineu abx's/f/u cx data -Contineu steroids/bronchodilators Problems: Consultation Date/Type/Reason Admit Date/Time Sep 04, 2016 at 00:20 Initial Consult Date 09/03/16 Type of Consultation: Cardiology Reason for Consultation abnl ecg Referring Provider: SALVATORE CALZADA MD Exam/Review of Systems Vital Signs Vitals Vital Signs Date Time Temp Pulse Resp B/P Pulse Ox O2 Delivery O2 Flow Rate FiO2 09/05/16 12:00 87 09/05/16 11:30 11 121/68 99 Room Air 09/05/16 08:23 21 09/05/16 08:00 97.6 09/04/16 18:00 2.0 Intake and Output 09/04/16 09/04/16 09/05/16 15:00 23:00 07:00 Intake Total 18 ml 505 ml 400 ml Output Total 350 ml 330 ml 325 ml Balance -332 ml 175 ml 75 ml Exam Review of Systems: CONSTITUTIONAL: No fevers, chills. PULMONARY: No sob CARDIOVASCULAR: No chest pain/palpitations GASTROINTESTINAL: No nausea/vomiting. GENITOURINARY: No hematuria/dysuria. MUSCULOSKELETAL: No myagias/arthalgias. PSYCHIATRIC: The patient denies depression. NEUROLOGIC: No weakness Constitutional: alert, oriented Psych: no complaints Head: normocephalic ENMT: mucosa pink and moist Neck: jvd, supple Respiratory: diminished breath sounds Cardiovascular: regular rate and rhythm Gastrointestinal: non-tender, soft Musculoskeletal: muscle tone (normal) Extremities: edema (none) Neurological: other (No focval deficits) Results Result Diagram: 09/05/16 0600 09/05/16 0600 Results 24 hrs Laboratory Tests Test 09/04/16 18:24 09/05/16 00:50 09/05/16 06:00 09/05/16 07:00 Creatine Kinase 90 121 Creatine Kinase Index 0.5 0.5 Creatinine Kinase MB (Mass) 0.41 0.62 Troponin I 0.023 0.023 White Blood Count 8.5 # Red Blood Count 3.47 L Hemoglobin 11.3 L Hematocrit 33.4 L Mean Corpuscular Volume 96.3 Mean Corpuscular Hemoglobin 32.6 Mean Corpuscular Hemoglobin Concent 33.8 Red Cell Distribution Width 11.8 Platelet Count 97 L Mean Platelet Volume 12.8 H Neutrophils % 82.1 H Lymphocytes % 13.2 L Monocytes % 4.1 Eosinophils % 0.0 Basophils % 0.1 Nucleated Red Blood Cells % 0.0 Neutrophils # 7.0 Lymphocytes # 1.1 Monocytes # 0.4 Eosinophils # 0.0 Basophils # 0.0 Nucleated Red Blood Cells # 0.0 Sodium Level 138 Potassium Level 4.4 Chloride Level 101 Carbon Dioxide Level 25 Anion Gap 16 Blood Urea Nitrogen 26 H Creatinine 0.93 Glucose Level 305 H Hemoglobin A1c 7.3 H Calcium Level 8.6 Phosphorus Level 3.8 Magnesium Level 1.9 Blood Gas Specimen Source Blood arterial Arterial Blood Date Drawn 09/05/2016 7:40:41 AM Arterial Blood pH (Temp corrected) 7.474 H Arterial Blood pCO2 (Temp correct) 30.7 L Arterial Blood pO2 (Temp corrected) 64.8 L Arterial Blood HCO3 22.0 Arterial Blood Base Excess -0.6 Arterial Blood Oxygen Saturation 93.6 L Remi Test N/A Arterial Blood Gas Puncture Site Right Brachial Arterial Blood Carboxyhemoglobin 0.3 Arterial Blood Methemoglobin 0.4 Blood Gas A-a O2 Differential 48.2 H Oxyhemoglobin Percent 92.9 L Total Hemoglobin 13.2 Blood Gas Temperature 37.0 Blood Gas Modality ROOM AIR FiO2 21.0 Blood Gas Notified Whom JLD Blood Gas Notified Time 09/05/2016 7:58:15 AM Test 09/05/16 09:35 Bedside Glucose 333 H Medications Medications Current Medications Flumazenil (Romazicon) 0.2 mg Q1M PRN IV BENZODIAZEPINE OVERDOSE; Start at 20:00 Naloxone HCl (Narcan) 0.4 mg Q3M PRN IV DECREASED REPIRATORY RATE; Start at 20:00 Ondansetron HCl (Zofran Inj) 4 mg Q6H PRN IV NAUSEA AND/OR VOMITING; Start 09/02 at 20:00 Nitroglycerin (Nitroglycerin (Sl Tab) 0.4 Mg) 1 tab Q5M PRN SL CHEST PAIN; Start 09/02/16 at 20:00 Acetaminophen (Tylenol Supp) 650 mg Q4H PRN [place] PAIN LEVEL 1-3 OR FEVER; Start 09/02/16 at 20:00 Docusate Sodium (Colace) 100 mg Q12H PRN PO CONSTIPATION; Start 09/02/16 at 20: 00 Magnesium Hydroxide (Milk Of Mag) 30 ml DAILY PRN PO CONSTIPATION; Start at 20:00 Bisacodyl (Dulcolax) 5 mg DAILY PRN PO CONSTIPATION; Start 09/02/16 at 20:00 Bisacodyl (Dulcolax Supp) 10 mg DAILY PRN [place] CONSTIPATION; Start 09/02/16 at 20: 00 Acetaminophen (Tylenol Tab) 650 mg Q4H PRN PO MILD PAIN LEVEL 1-3 Last administered on 09/04/16 21:53; Admin Dose 650 MG; Start 09/03/16 at 00:00 Atorvastatin Calcium (Lipitor) 20 mg QHS PO Last administered on 09/04/16 20:58 ; Admin Dose 20 MG; Start 09/03/16 at 21:00 Bisacodyl (Dulcolax) 10 mg Q2D PRN PO CONSTIPATION; Start 09/03/16 at 00:00 Cholecalciferol (Vitamin D) 1,000 unit QAM PO Last administered on 09/05/16 09: 21; Admin Dose 1,000 UNIT; Start 09/03/16 at 09:00 Divalproex Sodium (Depakote Sprinkle) 500 mg BID PO ; Start 09/03/16 at 09:00; Status Future Hold Gabapentin (Neurontin) 100 mg TID PO Last administered on 09/05/16 09:21; Admin Dose 100 MG; Start 09/03/16 at 09:00 Magnesium Hydroxide (Milk Of Mag) 30 ml QHS PO Last administered on 09/04/16 20 :57; Admin Dose 30 ML; Start 09/03/16 at 21:00 Oxcarbazepine (Trileptal) 300 mg BID PO Last administered on 09/05/16 09:00; Admin Dose 300 MG; Start 09/03/16 at 09:00 Phenytoin (Dilantin) 200 mg HS PO Last administered on 09/04/16 21:03; Admin Dose 200 MG; Start 09/03/16 at 21:00 Aspirin 325 mg 325 mg DAILY PO Last administered on 09/05/16 09:21; Admin Dose 325 MG; Start 09/03/16 at 09:00 Ceftriaxone Sodium 50 ml @ 100 mls/hr DAILY IVPB Last administered on 09:22; Admin Dose 100 MLS/HR; Start 09/03/16 at 09:00 Dextrose/Sodium Chloride 1,000 ml @ 20 mls/hr Q24H IV Last administered on 09/04 15:44; Admin Dose 50 MLS/HR; Start 09/03/16 at 00:00 Valproate Sodium 500 mg/Dextrose 55 ml @ 55 mls/hr BID IVPB Last administered on 09/05/16 11:30; Admin Dose 55 MLS/HR; Start 09/03/16 at 12:00 Midazolam HCl (Versed) 50 ml @ 1 mls/hr TITRATE IV Last administered on 00:53; Admin Dose 7 MLS/HR; Start 09/04/16 at 00:45 Aspirin (Ecotrin) 325 mg DAILY PO Last administered on 09/04/16 16:11; Admin Dose 325 MG; Start 09/04/16 at 13:00 Insulin Aspart (Novolog Insulin Pen) NOVOLOG *MILD* ALGORI... Q4 SC ; Start 09/05 at 13:00 Miscellaneous Information 1 ea NOTE XX ; Start 09/05/16 at 09:30 Glucose (Glutose) 15 gm Q15M PRN PO DECREASED GLUCOSE; Start 09/05/16 at 09:30 Glucose (Glutose) 22.5 gm Q15M PRN PO DECREASED GLUCOSE; Start 09/05/16 at 09:30 Dextrose (D50w Syringe) 25 ml Q15M PRN IV DECREASED GLUCOSE; Start 09/05/16 at 09:30 Dextrose (D50w Syringe) 50 ml Q15M PRN IV DECREASED GLUCOSE; Start 09/05/16 at 09:30 Glucagon (Glucagen) 1 mg Q15M PRN IM DECREASED GLUCOSE; Start 09/05/16 at 09:30 Glucose (Glutose) 15 gm Q15M PRN BUCCAL DECREASED GLUCOSE; Start 09/05/16 at 09: 30 Methylprednisolone Sodium Succinate (Solu-Medrol) 60 mg BID IV ; Start 09/05/16 at 21:00 JALIL GLASS Sep 05, 2016 13:13
[2016-09-05] MEDS: INSULIN ASPART [NOVOLOG] 3 ML PEN SC SCH ×3 (14:00→20:53)
[2016-09-05] MEDS: MAGNESIUM HYDROXIDE 30ML CUP PO SCH (20:42)
[2016-09-05] MEDS: PHENYTOIN 100 MG CAP PO SCH (20:42)
[2016-09-05] MEDS: ATORVASTATIN 20 MG TAB PO SCH (20:42)
[2016-09-05] MEDS: ACETAMINOPHEN/CODEINE #3 TAB PO PRN (20:43)
--- NOTE | 2016-09-05 20:55 | PN ---
Date/Time of Note Date/Time of Note DATE: 09/05/16 TIME: 20:53 Assessment/Plan VTE Prophylaxis VTE Prophylaxis Intervention: other Lines/Catheters IV C[facility]ter Type (from [facility]): Peripheral IV Urinary Cath still in place: Yes Reason Cath still needed: other (indicate) Assessment/Plan Chief Complaint/Hosp Course IMPRESSION: 1. Status post acute hypoxic respiratory failure due to choking episode. 2. The patient has ventilator dependent respiratory failure s/p extubation and urinary tract infection. 3. The patient has hyperglycemia, leukocytosis, and thrombocytopenia. 4. The patient has a history of psychiatric disorder. PLAN PER PULMONARY AND CARDIO dec solumedrol Problems: Subjective 24 Hr Interval Summary Respiratory: no complaints Cardiovascular: no complaints Exam/Review of Systems Vital Signs Vitals Vital Signs Date Time Temp Pulse Resp B/P Pulse Ox O2 Delivery O2 Flow Rate FiO2 09/05/16 20:15 93 17 109/58 100 Room Air 09/05/16 20:09 21 09/05/16 19:30 98.3 09/04/16 18:00 2.0 Intake and Output 09/04/16 09/04/16 09/05/16 15:00 23:00 07:00 Intake Total 18 ml 505 ml 400 ml Output Total 350 ml 330 ml 325 ml Balance -332 ml 175 ml 75 ml Exam Neck: supple Respiratory: clear to auscultation Cardiovascular: regular rate and rhythm, No edema Gastrointestinal: bowel sounds (+), soft Musculoskeletal: No muscle weakness Results Result Diagram: 09/05/16 0600 09/05/16 0600 Results 24 hrs Laboratory Tests Test 09/05/16 00:50 09/05/16 06:00 09/05/16 07:00 09/05/16 09:35 Creatine Kinase 121 Creatine Kinase Index 0.5 Creatinine Kinase MB (Mass) 0.62 Troponin I 0.023 White Blood Count 8.5 # Red Blood Count 3.47 L Hemoglobin 11.3 L Hematocrit 33.4 L Mean Corpuscular Volume 96.3 Mean Corpuscular Hemoglobin 32.6 Mean Corpuscular Hemoglobin Concent 33.8 Red Cell Distribution Width 11.8 Platelet Count 97 L Mean Platelet Volume 12.8 H Neutrophils % 82.1 H Lymphocytes % 13.2 L Monocytes % 4.1 Eosinophils % 0.0 Basophils % 0.1 Nucleated Red Blood Cells % 0.0 Neutrophils # 7.0 Lymphocytes # 1.1 Monocytes # 0.4 Eosinophils # 0.0 Basophils # 0.0 Nucleated Red Blood Cells # 0.0 Sodium Level 138 Potassium Level 4.4 Chloride Level 101 Carbon Dioxide Level 25 Anion Gap 16 Blood Urea Nitrogen 26 H Creatinine 0.93 Glucose Level 305 H Hemoglobin A1c 7.3 H Calcium Level 8.6 Phosphorus Level 3.8 Magnesium Level 1.9 Blood Gas Specimen Source Blood arterial Arterial Blood Date Drawn 09/05/2016 7:40:41 AM Arterial Blood pH (Temp corrected) 7.474 H Arterial Blood pCO2 (Temp correct) 30.7 L Arterial Blood pO2 (Temp corrected) 64.8 L Arterial Blood HCO3 22.0 Arterial Blood Base Excess -0.6 Arterial Blood Oxygen Saturation 93.6 L Remi Test N/A Arterial Blood Gas Puncture Site Right Brachial Arterial Blood Carboxyhemoglobin 0.3 Arterial Blood Methemoglobin 0.4 Blood Gas A-a O2 Differential 48.2 H Oxyhemoglobin Percent 92.9 L Total Hemoglobin 13.2 Blood Gas Temperature 37.0 Blood Gas Modality ROOM AIR FiO2 21.0 Blood Gas Notified Whom JLD Blood Gas Notified Time 09/05/2016 7:58:15 AM Bedside Glucose 333 H Test 09/05/16 14:04 09/05/16 17:55 Bedside Glucose 298 H 176 Medications Medications Current Medications Flumazenil (Romazicon) 0.2 mg Q1M PRN IV BENZODIAZEPINE OVERDOSE; Start at 20:00 Naloxone HCl (Narcan) 0.4 mg Q3M PRN IV DECREASED REPIRATORY RATE; Start at 20:00 Ondansetron HCl (Zofran Inj) 4 mg Q6H PRN IV NAUSEA AND/OR VOMITING; Start 09/02 at 20:00 Nitroglycerin (Nitroglycerin (Sl Tab) 0.4 Mg) 1 tab Q5M PRN SL CHEST PAIN; Start 09/02/16 at 20:00 Acetaminophen (Tylenol Supp) 650 mg Q4H PRN [place] PAIN LEVEL 1-3 OR FEVER; Start 09/02/16 at 20:00 Docusate Sodium (Colace) 100 mg Q12H PRN PO CONSTIPATION; Start 09/02/16 at 20: 00 Magnesium Hydroxide (Milk Of Mag) 30 ml DAILY PRN PO CONSTIPATION; Start at 20:00 Bisacodyl (Dulcolax) 5 mg DAILY PRN PO CONSTIPATION; Start 09/02/16 at 20:00 Bisacodyl (Dulcolax Supp) 10 mg DAILY PRN [place] CONSTIPATION; Start 09/02/16 at 20: 00 Acetaminophen (Tylenol Tab) 650 mg Q4H PRN PO MILD PAIN LEVEL 1-3 Last administered on 09/04/16 21:53; Admin Dose 650 MG; Start 09/03/16 at 00:00 Atorvastatin Calcium (Lipitor) 20 mg QHS PO Last administered on 09/05/16 20:42 ; Admin Dose 20 MG; Start 09/03/16 at 21:00 Bisacodyl (Dulcolax) 10 mg Q2D PRN PO CONSTIPATION; Start 09/03/16 at 00:00 Cholecalciferol (Vitamin D) 1,000 unit QAM PO Last administered on 09/05/16 09: 21; Admin Dose 1,000 UNIT; Start 09/03/16 at 09:00 Divalproex Sodium (Depakote Sprinkle) 500 mg BID PO ; Start 09/03/16 at 09:00; Status Future Hold Gabapentin (Neurontin) 100 mg TID PO Last administered on 09/05/16 20:43; Admin Dose 100 MG; Start 09/03/16 at 09:00 Magnesium Hydroxide (Milk Of Mag) 30 ml QHS PO Last administered on 09/05/16 20 :42; Admin Dose 30 ML; Start 09/03/16 at 21:00 Oxcarbazepine (Trileptal) 300 mg BID PO Last administered on 09/05/16 20:43; Admin Dose 300 MG; Start 09/03/16 at 09:00 Phenytoin 200 mg 200 mg HS PO Last administered on 09/05/16 20:42; Admin Dose 200 MG; Start 09/03/16 at 21:00 Ceftriaxone Sodium 50 ml @ 100 mls/hr DAILY IVPB Last administered on 09:22; Admin Dose 100 MLS/HR; Start 09/03/16 at 09:00 Dextrose/Sodium Chloride 1,000 ml @ 20 mls/hr Q24H IV Last administered on 09/05 12:55; Admin Dose 20 MLS/HR; Start 09/03/16 at 00:00 Valproate Sodium/ Dextrose (Depacon/D5W) 55 ml @ 55 mls/hr BID IVPB Last administered on 09/05/16 20:41; Admin Dose 55 MLS/HR; Start 09/03/16 at 12:00 Aspirin (Ecotrin) 325 mg DAILY PO Last administered on 09/04/16 16:11; Admin Dose 325 MG; Start 09/04/16 at 13:00 Insulin Aspart (Novolog Insulin Pen) NOVOLOG *MILD* ALGORI... Q4 SC Last administered on 09/05/16 18:11; Admin Dose 1 UNIT; Start 09/05/16 at 13:00 Miscellaneous Information 1 ea NOTE XX ; Start 09/05/16 at 09:30 Glucose (Glutose) 15 gm Q15M PRN PO DECREASED GLUCOSE; Start 09/05/16 at 09:30 Glucose (Glutose) 22.5 gm Q15M PRN PO DECREASED GLUCOSE; Start 09/05/16 at 09:30 Dextrose (D50w Syringe) 25 ml Q15M PRN IV DECREASED GLUCOSE; Start 09/05/16 at 09:30 Dextrose (D50w Syringe) 50 ml Q15M PRN IV DECREASED GLUCOSE; Start 09/05/16 at 09:30 Glucagon (Glucagen) 1 mg Q15M PRN IM DECREASED GLUCOSE; Start 09/05/16 at 09:30 Glucose (Glutose) 15 gm Q15M PRN BUCCAL DECREASED GLUCOSE; Start 09/05/16 at 09: 30 Methylprednisolone Sodium Succinate (Solu-Medrol) 60 mg BID IV Last administered on 09/05/16 20:42; Admin Dose 60 MG; Start 09/05/16 at 21:00 Zolpidem Tartrate (Ambien) 5 mg HS PRN PO INSOMNIA; Start 09/05/16 at 19:30 Acetaminophen/ Codeine Phosphate (Tylenol No.3) 1 tab Q6H PRN PO PAIN Last administered on 09/05/16 20:43; Admin Dose 1 TAB; Start 09/05/16 at 19:30 SALVATORE CALZADA MD Sep 05, 2016 20:55
[2016-09-06] VITALS (12 sets, daily range): BP systolic 94–119; BP diastolic 56–75; PULSE 83–93; RESP 12–18
[2016-09-06] MEDS: INSULIN ASPART [NOVOLOG] 3 ML PEN SC SCH ×7 (02:36→21:07)
[2016-09-06] MEDS: ALBUTEROL/IPRATROPIUM (NEB) 3 ML AMP HHN SCH ×4 (02:38→19:14)
[2016-09-06] MEDS: ACETAMINOPHEN/CODEINE #3 TAB PO PRN (02:59)
--- NOTE | 2016-09-06 06:39 | PQ ---
Date/Time of Note Date/Time of Note DATE: 09/06/16 TIME: 06:[address] Calzada, A review of the medical record found a need for documentation clarification. Patient has been admitted with Acute respiratory failure and per ED documentation "they applied high flow oxygen via facemask and after a few episodes of vomiting they say he began breathing independently but remained altered with a GCS equals 3" . diagnosis of Encephalopathy was documented in ED record, please specify if Encephalopathy diagnosis was ruled in or ruled out Please clarify a diagnosis being treated. To facilitate accurate and complete coding, please david ( x ) the suspected diagnosis that apply: ( x ) Encephalopathy ruled in ( ) Encephalopathy ruled out ( ) other....................... ( ) Unable to determine Please provide your response by clicking edit document,~ making~ your choice ( x ), click ok/save and finally click sign. You may also~ document your response~ on~ your progress notes. ~ Thank you for your time. Ab Pierre MD,CCS,CCDS [facility] [employer] [facility], CDI and Coding Services Room # [id number] - Coding [address]~ [address] AB PIERRE Sep 06, 2016 06:39 SALVATORE CALZADA MD Sep 07, 2016 16:21
[2016-09-06] MEDS: CEFTRIAXONE 1 GM/50 ML (PMX) 50 ML IVPB SCH (08:24)
[2016-09-06] MEDS: METHYLPREDNISOLONE 125 MG INJ IV SCH (08:28)
[2016-09-06] MEDS: GABAPENTIN 100 MG CAP PO SCH ×3 (08:31→21:03)
[2016-09-06] MEDS: ASPIRIN (EC) 325 MG TAB PO SCH (08:31)
[2016-09-06] MEDS: OXCARBAZEPINE 300 MG TAB PO SCH ×2 (08:31→21:03)
[2016-09-06] MEDS: CHOLECALCIFEROL 1,000 UNIT TAB PO SCH (08:31)
[2016-09-06] MEDS: VALPROATE INJ 500 MG in DEXTROSE 5% 50 ML IVPB SCH ×2 (08:57→21:03)
[2016-09-06 10:14] LABS: ADD SCAN DIFF NO
[2016-09-06 10:18] LABS: BASOPHILS % 0.1 % (0.0-2.0); EOSINOPHILS % 0.4 % (0.0-7.0); HEMATOCRIT 31.6 % (42.0-52.0); HEMOGLOBIN 10.9 g/dl (14.0-18.0); LYMPHOCYTES # 1.7 10^3/ul (0.8-2.9); LYMPHOCYTES % 19.3 % (15.0-51.0); MEAN CORPUSCULAR HEMOGLOBIN 33.1 pg (29.0-33.0); MEAN CORPUSCULAR HGB CONC 34.5 g/dl (32.0-37.0); MONOCYTE # 0.5 10^3/ul (0.3-0.9); MONOCYTES % 6.3 % (0.0-11.0); NEUTROPHIL # 6.3 10^3/ul (1.6-7.5); NEUTROPHILS % 73.5 % (39.0-77.0); PLATELET COUNT 107 10^3/UL (140-415); RED BLOOD COUNT 3.29 10^6/ul (4.70-6.10); WHITE BLOOD COUNT 8.6 10^3/ul (4.8-10.8)
[2016-09-06 10:35] LABS: ALBUMIN 3.2 g/dl (3.3-4.9)
[2016-09-06 10:36] LABS: POTASSIUM 3.8 mmol/L (3.5-5.1)
[2016-09-06 10:38] LABS: ALBUMIN/GLOBULIN RATIO 0.84; BILIRUBIN,INDIRECT 0.2 mg/dl (0-1.1); BILIRUBIN,TOTAL 0.2 mg/dl (0.2-1.3); CREATININE 0.96 mg/dl (0.61-1.24)
[2016-09-06 10:39] LABS: CALCIUM 8.3 mg/dl (8.4-10.2)
[2016-09-06] MEDS: DEXTROSE 5%-0.45% NACL 1,000 ML IV SCH (13:08)
--- NOTE | 2016-09-06 13:18 | CONS ---
Date/Time of Note Date/Time of Note DATE: 09/06/16 TIME: 13:13 Assessment/Plan Assessment/Plan Chief Complaint/Hosp Course IMp: 1.Positive troponin-minimal ? type 2 infarct-now trended negative 2.HTN 3.abnl ecg-1 AVB 4.Resp failure-improved s/p extubation 5.psych 6.H/O CVA by CT 7.H/O sz d/o 8. Possible PNA 9.Thrombocytopenia Recc: -Tele -serial ecg's -Continue dilantin -Continue abx's/f/u cx data -Continue steroids/bronchodilators -ASA held in setting of low platelets Problems: Consultation Date/Type/Reason Admit Date/Time Sep 04, 2016 at 00:20 Initial Consult Date 09/03/16 Type of Consultation: Cardiology Reason for Consultation abnl ecg Referring Provider: SALVATORE CALZADA MD Exam/Review of Systems Vital Signs Vitals Vital Signs Date Time Temp Pulse Resp B/P Pulse Ox O2 Delivery O2 Flow Rate FiO2 09/06/16 12:38 92 09/06/16 11:04 98.0 18 102/58 97 09/06/16 08:17 21 09/06/16 00:00 Room Air 09/04/16 18:00 2.0 Intake and Output 09/05/16 09/05/16 09/06/16 15:00 23:00 07:00 Intake Total 565 ml 250 ml 120 ml Output Total 245 ml 210 ml 375 ml Balance 320 ml 40 ml -255 ml Exam Review of Systems: CONSTITUTIONAL: No fevers, chills. PULMONARY: No sob CARDIOVASCULAR: No chest pain/palpitations GASTROINTESTINAL: No nausea/vomiting. GENITOURINARY: No hematuria/dysuria. MUSCULOSKELETAL: No myagias/arthalgias. PSYCHIATRIC: The patient denies depression. NEUROLOGIC: No weakness Constitutional: alert Psych: no complaints Head: normocephalic ENMT: mucosa pink and moist Neck: jvd (9 cm water), supple Respiratory: diminished breath sounds (at bases/B) Cardiovascular: regular rate and rhythm Gastrointestinal: non-tender, soft Musculoskeletal: muscle tone (normal) Extremities: edema (none) Neurological: other (No focal deficits) Results Result Diagram: 09/06/16 0455 09/06/16 0955 Results 24 hrs Laboratory Tests Test 09/05/16 14:04 09/05/16 17:55 09/05/16 20:49 09/06/16 02:16 Bedside Glucose 298 H 176 180 322 H Test 09/06/16 04:55 09/06/16 05:48 09/06/16 08:08 09/06/16 09:55 White Blood Count 8.6 Red Blood Count 3.29 L Hemoglobin 10.9 L Hematocrit 31.6 L Mean Corpuscular Volume 96.0 Mean Corpuscular Hemoglobin 33.1 H Mean Corpuscular Hemoglobin Concent 34.5 Red Cell Distribution Width 12.0 Platelet Count 107 L Mean Platelet Volume 13.0 H Neutrophils % 73.5 Lymphocytes % 19.3 Monocytes % 6.3 Eosinophils % 0.4 Basophils % 0.1 Nucleated Red Blood Cells % 0.0 Neutrophils # 6.3 Lymphocytes # 1.7 Monocytes # 0.5 Eosinophils # 0.0 Basophils # 0.0 Nucleated Red Blood Cells # 0.0 Bedside Glucose 234 H 210 Sodium Level 137 Potassium Level 3.8 Chloride Level 99 Carbon Dioxide Level 25 Anion Gap 17 H Blood Urea Nitrogen 26 H Creatinine 0.96 Glucose Level 287 H Calcium Level 8.3 L Total Bilirubin 0.2 Direct Bilirubin 0.00 Indirect Bilirubin 0.2 Aspartate Amino Transf (AST/SGOT) 38 Alanine Aminotransferase (ALT/SGPT) 39 Alkaline Phosphatase 55 Total Protein 7.0 Albumin 3.2 L Globulin 3.80 H Albumin/Globulin Ratio 0.84 Test 09/06/16 12:02 Bedside Glucose 375 H Medications Medications Current Medications Flumazenil (Romazicon) 0.2 mg Q1M PRN IV BENZODIAZEPINE OVERDOSE; Start at 20:00 Naloxone HCl (Narcan) 0.4 mg Q3M PRN IV DECREASED REPIRATORY RATE; Start at 20:00 Ondansetron HCl (Zofran Inj) 4 mg Q6H PRN IV NAUSEA AND/OR VOMITING; Start 09/02 at 20:00 Nitroglycerin (Nitroglycerin (Sl Tab) 0.4 Mg) 1 tab Q5M PRN SL CHEST PAIN; Start 09/02/16 at 20:00 Acetaminophen (Tylenol Supp) 650 mg Q4H PRN [place] PAIN LEVEL 1-3 OR FEVER; Start 09/02/16 at 20:00 Docusate Sodium (Colace) 100 mg Q12H PRN PO CONSTIPATION; Start 09/02/16 at 20: 00 Magnesium Hydroxide (Milk Of Mag) 30 ml DAILY PRN PO CONSTIPATION; Start at 20:00 Bisacodyl (Dulcolax) 5 mg DAILY PRN PO CONSTIPATION; Start 09/02/16 at 20:00 Bisacodyl (Dulcolax Supp) 10 mg DAILY PRN [place] CONSTIPATION; Start 09/02/16 at 20: 00 Acetaminophen (Tylenol Tab) 650 mg Q4H PRN PO MILD PAIN LEVEL 1-3 Last administered on 09/04/16 21:53; Admin Dose 650 MG; Start 09/03/16 at 00:00 Atorvastatin Calcium (Lipitor) 20 mg QHS PO Last administered on 09/05/16 20:42 ; Admin Dose 20 MG; Start 09/03/16 at 21:00 Bisacodyl (Dulcolax) 10 mg Q2D PRN PO CONSTIPATION; Start 09/03/16 at 00:00 Cholecalciferol (Vitamin D) 1,000 unit QAM PO Last administered on 09/06/16 08: 31; Admin Dose 1,000 UNIT; Start 09/03/16 at 09:00 Divalproex Sodium (Depakote Sprinkle) 500 mg BID PO ; Start 09/03/16 at 09:00; Status Future Hold Gabapentin (Neurontin) 100 mg TID PO Last administered on 09/06/16 12:04; Admin Dose 100 MG; Start 09/03/16 at 09:00 Magnesium Hydroxide (Milk Of Mag) 30 ml QHS PO Last administered on 09/05/16 20 :42; Admin Dose 30 ML; Start 09/03/16 at 21:00 Oxcarbazepine (Trileptal) 300 mg BID PO Last administered on 09/06/16 08:31; Admin Dose 300 MG; Start 09/03/16 at 09:00 Phenytoin 200 mg 200 mg HS PO Last administered on 09/05/16 20:42; Admin Dose 200 MG; Start 09/03/16 at 21:00 Ceftriaxone Sodium 50 ml @ 100 mls/hr DAILY IVPB Last administered on 08:24; Admin Dose 100 MLS/HR; Start 09/03/16 at 09:00 Dextrose/Sodium Chloride 1,000 ml @ 20 mls/hr Q24H IV Last administered on 09/06 13:08; Admin Dose 20 MLS/HR; Start 09/03/16 at 00:00 Valproate Sodium/ Dextrose (Depacon/D5W) 55 ml @ 55 mls/hr BID IVPB Last administered on 09/06/16 08:57; Admin Dose 55 MLS/HR; Start 09/03/16 at 12:00 Aspirin (Ecotrin) 325 mg DAILY PO Last administered on 09/06/16 08:31; Admin Dose 325 MG; Start 09/04/16 at 13:00 Miscellaneous Information 1 ea NOTE XX ; Start 09/05/16 at 09:30 Glucose (Glutose) 15 gm Q15M PRN PO DECREASED GLUCOSE; Start 09/05/16 at 09:30 Glucose (Glutose) 22.5 gm Q15M PRN PO DECREASED GLUCOSE; Start 09/05/16 at 09:30 Dextrose (D50w Syringe) 25 ml Q15M PRN IV DECREASED GLUCOSE; Start 09/05/16 at 09:30 Dextrose (D50w Syringe) 50 ml Q15M PRN IV DECREASED GLUCOSE; Start 09/05/16 at 09:30 Glucagon (Glucagen) 1 mg Q15M PRN IM DECREASED GLUCOSE; Start 09/05/16 at 09:30 Glucose (Glutose) 15 gm Q15M PRN BUCCAL DECREASED GLUCOSE; Start 09/05/16 at 09: 30 Zolpidem Tartrate (Ambien) 5 mg HS PRN PO INSOMNIA; Start 09/05/16 at 19:30 Acetaminophen/ Codeine Phosphate (Tylenol No.3) 1 tab Q6H PRN PO PAIN Last administered on 09/06/16 02:59; Admin Dose 1 TAB; Start 09/05/16 at 19:30 Methylprednisolone Sodium Succinate (Solu-Medrol) 20 mg DAILY IV ; Start at 09:00 Diagnostic Test (Pha) (Accu-Chek) 1 ea 02 XX ; Start 09/07/16 at 02:00 JALIL GLASS Sep 06, 2016 13:18
--- NOTE | 2016-09-06 15:51 | CONS ---
Date/Time of Note Date/Time of Note DATE: 09/06/16 TIME: 15:51 Consult Date/Type/Reason Admit Date/Time Sep 04, 2016 at 00:20 Initial Consult Date 09/03/16 Type of Consultation: pulmonary Ordering Provider: SALVATORE CALZADA MD Subjective Patient stable following transfer to telemetry Objective Vital Signs Date Time Temp Pulse Resp B/P Pulse Ox O2 Delivery O2 Flow Rate FiO2 09/06/16 15:27 97.5 91 18 105/57 98 09/06/16 14:13 21 09/06/16 00:00 Room Air 09/04/16 18:00 2.0 Intake and Output 09/05/16 09/05/16 09/06/16 15:00 23:00 07:00 Intake Total 565 ml 250 ml 120 ml Output Total 245 ml 210 ml 375 ml Balance 320 ml 40 ml -255 ml Exam GENERAL: Elderly gentleman comfortable at rest VITAL SIGNS: per chart NECK: Supple. No JVD or lymphadenopathy. CARDIAC EXAM: S1, S2. No added sounds or murmurs. CHEST: clear bilaterally, No added sounds, rales or wheezes ABDOMEN: Soft, nontender. No guarding or rebound. EXTREMITIES: No cyanosis, clubbing or edema. NEUROLOGIC: Generalized weakness. No focal deficits. Results/Medications Result Diagram: 09/06/16 0455 09/06/16 0955 Results 24 hrs Laboratory Tests Test 09/05/16 17:55 09/05/16 20:49 09/06/16 02:16 09/06/16 04:55 Bedside Glucose 176 180 322 H White Blood Count 8.6 Red Blood Count 3.29 L Hemoglobin 10.9 L Hematocrit 31.6 L Mean Corpuscular Volume 96.0 Mean Corpuscular Hemoglobin 33.1 H Mean Corpuscular Hemoglobin Concent 34.5 Red Cell Distribution Width 12.0 Platelet Count 107 L Mean Platelet Volume 13.0 H Neutrophils % 73.5 Lymphocytes % 19.3 Monocytes % 6.3 Eosinophils % 0.4 Basophils % 0.1 Nucleated Red Blood Cells % 0.0 Neutrophils # 6.3 Lymphocytes # 1.7 Monocytes # 0.5 Eosinophils # 0.0 Basophils # 0.0 Nucleated Red Blood Cells # 0.0 Test 09/06/16 05:48 09/06/16 08:08 09/06/16 09:55 09/06/16 12:02 Bedside Glucose 234 H 210 375 H Sodium Level 137 Potassium Level 3.8 Chloride Level 99 Carbon Dioxide Level 25 Anion Gap 17 H Blood Urea Nitrogen 26 H Creatinine 0.96 Glucose Level 287 H Calcium Level 8.3 L Total Bilirubin 0.2 Direct Bilirubin 0.00 Indirect Bilirubin 0.2 Aspartate Amino Transf (AST/SGOT) 38 Alanine Aminotransferase (ALT/SGPT) 39 Alkaline Phosphatase 55 Total Protein 7.0 Albumin 3.2 L Globulin 3.80 H Albumin/Globulin Ratio 0.84 Medications Current Medications Flumazenil (Romazicon) 0.2 mg Q1M PRN IV BENZODIAZEPINE OVERDOSE; Start at 20:00 Naloxone HCl (Narcan) 0.4 mg Q3M PRN IV DECREASED REPIRATORY RATE; Start at 20:00 Ondansetron HCl (Zofran Inj) 4 mg Q6H PRN IV NAUSEA AND/OR VOMITING; Start 09/02 at 20:00 Nitroglycerin (Nitroglycerin (Sl Tab) 0.4 Mg) 1 tab Q5M PRN SL CHEST PAIN; Start 09/02/16 at 20:00 Acetaminophen (Tylenol Supp) 650 mg Q4H PRN [place] PAIN LEVEL 1-3 OR FEVER; Start 09/02/16 at 20:00 Docusate Sodium (Colace) 100 mg Q12H PRN PO CONSTIPATION; Start 09/02/16 at 20: 00 Magnesium Hydroxide (Milk Of Mag) 30 ml DAILY PRN PO CONSTIPATION; Start at 20:00 Bisacodyl (Dulcolax) 5 mg DAILY PRN PO CONSTIPATION; Start 09/02/16 at 20:00 Bisacodyl (Dulcolax Supp) 10 mg DAILY PRN [place] CONSTIPATION; Start 09/02/16 at 20: 00 Acetaminophen (Tylenol Tab) 650 mg Q4H PRN PO MILD PAIN LEVEL 1-3 Last administered on 09/04/16 21:53; Admin Dose 650 MG; Start 09/03/16 at 00:00 Atorvastatin Calcium (Lipitor) 20 mg QHS PO Last administered on 09/05/16 20:42 ; Admin Dose 20 MG; Start 09/03/16 at 21:00 Bisacodyl (Dulcolax) 10 mg Q2D PRN PO CONSTIPATION; Start 09/03/16 at 00:00 Cholecalciferol (Vitamin D) 1,000 unit QAM PO Last administered on 09/06/16 08: 31; Admin Dose 1,000 UNIT; Start 09/03/16 at 09:00 Divalproex Sodium (Depakote Sprinkle) 500 mg BID PO ; Start 09/03/16 at 09:00; Status Future Hold Gabapentin (Neurontin) 100 mg TID PO Last administered on 09/06/16 12:04; Admin Dose 100 MG; Start 09/03/16 at 09:00 Magnesium Hydroxide (Milk Of Mag) 30 ml QHS PO Last administered on 09/05/16 20 :42; Admin Dose 30 ML; Start 09/03/16 at 21:00 Oxcarbazepine (Trileptal) 300 mg BID PO Last administered on 09/06/16 08:31; Admin Dose 300 MG; Start 09/03/16 at 09:00 Phenytoin 200 mg 200 mg HS PO Last administered on 09/05/16 20:42; Admin Dose 200 MG; Start 09/03/16 at 21:00 Ceftriaxone Sodium 50 ml @ 100 mls/hr DAILY IVPB Last administered on 08:24; Admin Dose 100 MLS/HR; Start 09/03/16 at 09:00 Dextrose/Sodium Chloride 1,000 ml @ 20 mls/hr Q24H IV Last administered on 09/06 13:08; Admin Dose 20 MLS/HR; Start 09/03/16 at 00:00 Valproate Sodium/ Dextrose (Depacon/D5W) 55 ml @ 55 mls/hr BID IVPB Last administered on 09/06/16 08:57; Admin Dose 55 MLS/HR; Start 09/03/16 at 12:00 Aspirin (Ecotrin) 325 mg DAILY PO Last administered on 09/06/16 08:31; Admin Dose 325 MG; Start 09/04/16 at 13:00 Miscellaneous Information 1 ea NOTE XX ; Start 09/05/16 at 09:30 Glucose (Glutose) 15 gm Q15M PRN PO DECREASED GLUCOSE; Start 09/05/16 at 09:30 Glucose (Glutose) 22.5 gm Q15M PRN PO DECREASED GLUCOSE; Start 09/05/16 at 09:30 Dextrose (D50w Syringe) 25 ml Q15M PRN IV DECREASED GLUCOSE; Start 09/05/16 at 09:30 Dextrose (D50w Syringe) 50 ml Q15M PRN IV DECREASED GLUCOSE; Start 09/05/16 at 09:30 Glucagon (Glucagen) 1 mg Q15M PRN IM DECREASED GLUCOSE; Start 09/05/16 at 09:30 Glucose (Glutose) 15 gm Q15M PRN BUCCAL DECREASED GLUCOSE; Start 09/05/16 at 09: 30 Zolpidem Tartrate (Ambien) 5 mg HS PRN PO INSOMNIA; Start 09/05/16 at 19:30 Acetaminophen/ Codeine Phosphate (Tylenol No.3) 1 tab Q6H PRN PO PAIN Last administered on 09/06/16t 02:59; Admin Dose 1 TAB; Start 09/05/16 at 19:30 Methylprednisolone Sodium Succinate (Solu-Medrol) 20 mg DAILY IV ; Start at 09:00 Insulin Glargine (Lantus) 10 unit DAILY@08 SC ; Start 09/06/16 at 15:30 Diagnostic Test (Pha) (Accu-Chek) 1 ea 02 XX ; Start 09/07/16 at 02:00 Assessment/Plan Chief Complaint/Hosp Course Assessment 1. Possible aspiration pneumonia now clinically improved postextubation 2. Hypoxemic respiratory failure 3. History of seizure disorder 4. 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 Thrombocytopenia Plan 1. Incentive spirometry and bronchodilators every 6 hours 2. Consider de-escalation of antibiotics 3. Aspiration precautions and speech therapy recommendations, modified diet 4. Cardiac recommendations 5. DVT GI prophylaxis Disposition Consider transfer to [facility] Problems: KATINA SEAMAN MD, [facility] Sep 06, 2016 15:51
[2016-09-06] MEDS: INSULIN GLARGINE [LANtus] 3 ML PEN SC SCH (17:13)
[2016-09-06] MEDS ORDERED: INSULIN ASPART [NOVOLOG] 3 ML PEN SC SCH (17:55)
[2016-09-06] MEDS: PHENYTOIN 100 MG CAP PO SCH (21:03)
[2016-09-06] MEDS: ATORVASTATIN 20 MG TAB PO SCH (21:03)
[2016-09-06] MEDS: ACETAMINOPHEN 325 MG TAB PO PRN (21:04)
[2016-09-06] MEDS: MAGNESIUM HYDROXIDE 30ML CUP PO SCH (21:04)
[2016-09-06] MEDS: ZOLPIDEM 5 MG TAB PO PRN (21:04)
[2016-09-07] VITALS (13 sets, daily range): BP systolic 105–121; BP diastolic 63–78; PULSE 71–91; RESP 15–18
--- NOTE | 2016-09-07 00:21 | PN ---
Date/Time of Note Date/Time of Note DATE: 09/07/16 TIME: 00:21 Assessment/Plan VTE Prophylaxis VTE Prophylaxis Intervention: other Lines/Catheters IV [facility] Type [facility]from [facility] Saline Lock Urinary Cath still in place: Yes Reason Cath still needed: other (indicate) Assessment/Plan Chief Complaint/Hosp Course IMPRESSION: 1. Status post acute hypoxic respiratory failure due to choking episode. 2. The patient has ventilator dependent respiratory failure s/p extubation and urinary tract infection. 3. The patient has hyperglycemia, leukocytosis, and thrombocytopenia. 4. The patient has a history of psychiatric disorder. PLAN PER PULMONARY AND CARDIO dec solumedrol insulin Problems: Subjective 24 Hr Interval Summary Cardiovascular: no complaints Gastrointestinal: no complaints Exam/Review of Systems Vital Signs Vitals Vital Signs Date Time Temp Pulse Resp B/P Pulse Ox O2 Delivery O2 Flow Rate FiO2 09/07/16 00:08 79 09/06/16 19:37 97.4 15 94/56 96 09/06/16 19:14 21 09/06/16 00:00 Room Air 09/04/16 18:00 2.0 Intake and Output 09/06/16 09/06/16 09/07/16 15:00 23:00 07:00 Intake Total 105 ml 700 ml Output Total 700 ml Balance 105 ml 0 ml Exam Respiratory: clear to auscultation Cardiovascular: regular rate and rhythm Gastrointestinal: soft Musculoskeletal: nl extremities to inspection Extremities: normal pulses Results Result Diagram: 09/06/16 0455 09/06/16 0955 Results 24 hrs Laboratory Tests Test 09/06/16 02:16 09/06/16 04:55 09/06/16 05:48 09/06/16 08:08 Bedside Glucose 322 H 234 H 210 White Blood Count 8.6 Red Blood Count 3.29 L Hemoglobin 10.9 L Hematocrit 31.6 L Mean Corpuscular Volume 96.0 Mean Corpuscular Hemoglobin 33.1 H Mean Corpuscular Hemoglobin Concent 34.5 Red Cell Distribution Width 12.0 Platelet Count 107 L Mean Platelet Volume 13.0 H Neutrophils % 73.5 Lymphocytes % 19.3 Monocytes % 6.3 Eosinophils % 0.4 Basophils % 0.1 Nucleated Red Blood Cells % 0.0 Neutrophils # 6.3 Lymphocytes # 1.7 Monocytes # 0.5 Eosinophils # 0.0 Basophils # 0.0 Nucleated Red Blood Cells # 0.0 Test 09/06/16 09:55 09/06/16 12:02 09/06/16 16:46 09/06/16 20:44 Sodium Level 137 Potassium Level 3.8 Chloride Level 99 Carbon Dioxide Level 25 Anion Gap 17 H Blood Urea Nitrogen 26 H Creatinine 0.96 Glucose Level 287 H Calcium Level 8.3 L Total Bilirubin 0.2 Direct Bilirubin 0.00 Indirect Bilirubin 0.2 Aspartate Amino Transf (AST/SGOT) 38 Alanine Aminotransferase (ALT/SGPT) 39 Alkaline Phosphatase 55 Total Protein 7.0 Albumin 3.2 L Globulin 3.80 H Albumin/Globulin Ratio 0.84 Bedside Glucose 375 H 357 H 280 H Medications Medications Current Medications Flumazenil (Romazicon) 0.2 mg Q1M PRN IV BENZODIAZEPINE OVERDOSE; Start at 20:00 Naloxone HCl (Narcan) 0.4 mg Q3M PRN IV DECREASED REPIRATORY RATE; Start at 20:00 Ondansetron HCl (Zofran Inj) 4 mg Q6H PRN IV NAUSEA AND/OR VOMITING; Start 09/02 at 20:00 Nitroglycerin (Nitroglycerin (Sl Tab) 0.4 Mg) 1 tab Q5M PRN SL CHEST PAIN; Start 09/02/16 at 20:00 Acetaminophen (Tylenol Supp) 650 mg Q4H PRN [place] PAIN LEVEL 1-3 OR FEVER; Start 09/02/16 at 20:00 Docusate Sodium (Colace) 100 mg Q12H PRN PO CONSTIPATION; Start 09/02/16 at 20: 00 Magnesium Hydroxide (Milk Of Mag) 30 ml DAILY PRN PO CONSTIPATION; Start at 20:00 Bisacodyl (Dulcolax) 5 mg DAILY PRN PO CONSTIPATION; Start 09/02/16 at 20:00 Bisacodyl (Dulcolax Supp) 10 mg DAILY PRN [place] CONSTIPATION; Start 09/02/16 at 20: 00 Acetaminophen (Tylenol Tab) 650 mg Q4H PRN PO MILD PAIN LEVEL 1-3 Last administered on 09/06/16 21:04; Admin Dose 650 MG; Start 09/03/16 at 00:00 Atorvastatin Calcium (Lipitor) 20 mg QHS PO Last administered on 09/06/16 21:03 ; Admin Dose 20 MG; Start 09/03/16 at 21:00 Bisacodyl (Dulcolax) 10 mg Q2D PRN PO CONSTIPATION; Start 09/03/16 at 00:00 Cholecalciferol (Vitamin D) 1,000 unit QAM PO Last administered on 09/06/16 08: 31; Admin Dose 1,000 UNIT; Start 09/03/16 at 09:00 Divalproex Sodium (Depakote Sprinkle) 500 mg BID PO ; Start 09/03/16 at 09:00; Status Future Hold Gabapentin (Neurontin) 100 mg TID PO Last administered on 09/06/16 21:03; Admin Dose 100 MG; Start 09/03/16 at 09:00 Magnesium Hydroxide (Milk Of Mag) 30 ml QHS PO Last administered on 09/06/16 21 :04; Admin Dose 30 ML; Start 09/03/16 at 21:00 Oxcarbazepine (Trileptal) 300 mg BID PO Last administered on 09/06/16 21:03; Admin Dose 300 MG; Start 09/03/16 at 09:00 Phenytoin 200 mg 200 mg HS PO Last administered on 09/06/16 21:03; Admin Dose 200 MG; Start 09/03/16 at 21:00 Ceftriaxone Sodium 50 ml @ 100 mls/hr DAILY IVPB Last administered on 08:24; Admin Dose 100 MLS/HR; Start 09/03/16 at 09:00 Dextrose/Sodium Chloride 1,000 ml @ 20 mls/hr Q24H IV Last administered on 09/06 13:08; Admin Dose 20 MLS/HR; Start 09/03/16 at 00:00 Valproate Sodium/ Dextrose (Depacon/D5W) 55 ml @ 55 mls/hr BID IVPB Last administered on 09/06/16 21:03; Admin Dose 55 MLS/HR; Start 09/03/16 at 12:00 Aspirin (Ecotrin) 325 mg DAILY PO Last administered on 09/06/16 08:31; Admin Dose 325 MG; Start 09/04/16 at 13:00 Miscellaneous Information 1 ea NOTE XX ; Start 09/05/16 at 09:30 Glucose (Glutose) 15 gm Q15M PRN PO DECREASED GLUCOSE; Start 09/05/16 at 09:30 Glucose (Glutose) 22.5 gm Q15M PRN PO DECREASED GLUCOSE; Start 09/05/16 at 09:30 Dextrose (D50w Syringe) 25 ml Q15M PRN IV DECREASED GLUCOSE; Start 09/05/16 at 09:30 Dextrose (D50w Syringe) 50 ml Q15M PRN IV DECREASED GLUCOSE; Start 09/05/16 at 09:30 Glucagon (Glucagen) 1 mg Q15M PRN IM DECREASED GLUCOSE; Start 09/05/16 at 09:30 Glucose (Glutose) 15 gm Q15M PRN BUCCAL DECREASED GLUCOSE; Start 09/05/16 at 09: 30 Zolpidem Tartrate (Ambien) 5 mg HS PRN PO INSOMNIA Last administered on 21:04; Admin Dose 5 MG; Start 09/05/16 at 19:30 Acetaminophen/ Codeine Phosphate (Tylenol No.3) 1 tab Q6H PRN PO PAIN Last administered on 09/06/16 02:59; Admin Dose 1 TAB; Start 09/05/16 at 19:30 Methylprednisolone Sodium Succinate (Solu-Medrol) 20 mg DAILY IV ; Start at 09:00 Insulin Glargine (Lantus) 10 unit DAILY@08 SC Last administered on 09/06/16 17: 13; Admin Dose 10 UNIT; Start 09/06/16 at 15:30 Diagnostic Test (Pha) (Accu-Chek) 1 ea 02 XX ; Start 09/07/16 at 02:00 SALVATORE CALZADA MD Sep 07, 2016 00:21
[2016-09-07] MEDS: ACCU-CHEK XX SCH (02:00)
[2016-09-07] MEDS ORDERED: ACCU-CHEK XX SCH (02:00)
[2016-09-07] MEDS: ALBUTEROL/IPRATROPIUM (NEB) 3 ML AMP HHN SCH ×4 (02:19→19:04)
[2016-09-07] MEDS: CEFTRIAXONE 1 GM/50 ML (PMX) 50 ML IVPB SCH (08:05)
[2016-09-07] MEDS: INSULIN ASPART [NOVOLOG] 3 ML PEN SC SCH ×7 (08:10→21:00)
[2016-09-07] MEDS: INSULIN GLARGINE [LANtus] 3 ML PEN SC SCH (08:13)
[2016-09-07] MEDS: GABAPENTIN 100 MG CAP PO SCH ×3 (08:19→21:13)
[2016-09-07] MEDS: CHOLECALCIFEROL 1,000 UNIT TAB PO SCH (08:19)
[2016-09-07] MEDS: OXCARBAZEPINE 300 MG TAB PO SCH ×2 (08:19→21:14)
[2016-09-07] MEDS: ASPIRIN (EC) 325 MG TAB PO SCH (08:19)
[2016-09-07] MEDS: METHYLPREDNISOLONE 40 MG INJ IV SCH (08:22)
[2016-09-07] MEDS: VALPROATE INJ 500 MG in DEXTROSE 5% 50 ML IVPB SCH ×2 (08:59→21:12)
[2016-09-07] MEDS: DEXTROSE 5%-0.45% NACL 1,000 ML IV SCH (12:55)
--- NOTE | 2016-09-07 14:49 | CONS ---
Date/Time of Note Date/Time of Note DATE: 09/07/16 TIME: 14:46 Assessment/Plan Assessment/Plan Chief Complaint/Hosp Course IMp: 1.Positive troponin-minimal ? type 2 infarct-now trended negative 2.HTN 3.abnl ecg-1 AVB 4.Resp failure-improved s/p extubation 5.psych 6.H/O CVA by CT 7.H/O sz d/o 8. Possible PNA 9.Thrombocytopenia Recc: -Tele -serial ecg's -Continue dilantin -Continue abx's/f/u cx data -Continue steroids/bronchodilators -Continue asa as tolerated Problems: Consultation Date/Type/Reason Admit Date/Time Sep 04, 2016 at 00:20 Initial Consult Date 09/03/16 Type of Consultation: Cardiology Reason for Consultation cad/HTN Referring Provider: SALVATORE CALZADA MD Exam/Review of Systems Vital Signs Vitals Vital Signs Date Time Temp Pulse Resp B/P Pulse Ox O2 Delivery O2 Flow Rate FiO2 09/07/16 13:56 71 2 95 21 09/07/16 12:02 98.0 121/73 09/06/16 00:00 Room Air 09/04/16 18:00 2.0 Intake and Output 09/06/16 09/06/16 09/07/16 15:00 23:00 07:00 Intake Total 105 ml 700 ml Output Total 700 ml Balance 105 ml 0 ml Exam Review of Systems: CONSTITUTIONAL: No fevers, chills. PULMONARY: No sob CARDIOVASCULAR: No chest pain/palpitations GASTROINTESTINAL: No nausea/vomiting. GENITOURINARY: No hematuria/dysuria. MUSCULOSKELETAL: No myagias/arthalgias. PSYCHIATRIC: The patient denies depression. NEUROLOGIC: No weakness Constitutional: alert Psych: no complaints Head: normocephalic ENMT: mucosa pink and moist Neck: jvd, supple Respiratory: diminished breath sounds Cardiovascular: regular rate and rhythm Gastrointestinal: non-tender, soft Musculoskeletal: muscle tone (normal) Extremities: edema (None) Neurological: lethargic Results Result Diagram: 09/06/16 0455 09/06/16 0955 Results 24 hrs Laboratory Tests Test 09/06/16 16:46 09/06/16 20:44 09/07/16 02:15 09/07/16 08:05 Bedside Glucose 357 H 280 H 170 162 Test 09/07/16 11:39 Bedside Glucose 301 H Medications Medications Current Medications Flumazenil (Romazicon) 0.2 mg Q1M PRN IV BENZODIAZEPINE OVERDOSE; Start at 20:00 Naloxone HCl (Narcan) 0.4 mg Q3M PRN IV DECREASED REPIRATORY RATE; Start at 20:00 Ondansetron HCl (Zofran Inj) 4 mg Q6H PRN IV NAUSEA AND/OR VOMITING; Start 09/02 at 20:00 Nitroglycerin (Nitroglycerin (Sl Tab) 0.4 Mg) 1 tab Q5M PRN SL CHEST PAIN; Start 09/02/16 at 20:00 Acetaminophen (Tylenol Supp) 650 mg Q4H PRN [place] PAIN LEVEL 1-3 OR FEVER; Start 09/02/16 at 20:00 Docusate Sodium (Colace) 100 mg Q12H PRN PO CONSTIPATION; Start 09/02/16 at 20: 00 Magnesium Hydroxide (Milk Of Mag) 30 ml DAILY PRN PO CONSTIPATION; Start at 20:00 Bisacodyl (Dulcolax) 5 mg DAILY PRN PO CONSTIPATION; Start 09/02/16 at 20:00 Bisacodyl (Dulcolax Supp) 10 mg DAILY PRN [place] CONSTIPATION; Start 09/02/16 at 20: 00 Acetaminophen (Tylenol Tab) 650 mg Q4H PRN PO MILD PAIN LEVEL 1-3 Last administered on 09/06/16 21:04; Admin Dose 650 MG; Start 09/03/16 at 00:00 Atorvastatin Calcium (Lipitor) 20 mg QHS PO Last administered on 09/06/16 21:03 ; Admin Dose 20 MG; Start 09/03/16 at 21:00 Bisacodyl (Dulcolax) 10 mg Q2D PRN PO CONSTIPATION; Start 09/03/16 at 00:00 Cholecalciferol (Vitamin D) 1,000 unit QAM PO Last administered on 09/07/16 08: 19; Admin Dose 1,000 UNIT; Start 09/03/16 at 09:00 Divalproex Sodium (Depakote Sprinkle) 500 mg BID PO ; Start 09/03/16 at 09:00; Status Future Hold Gabapentin (Neurontin) 100 mg TID PO Last administered on 09/07/16 13:01; Admin Dose 100 MG; Start 09/03/16 at 09:00 Magnesium Hydroxide (Milk Of Mag) 30 ml QHS PO Last administered on 09/06/16 21 :04; Admin Dose 30 ML; Start 09/03/16 at 21:00 Oxcarbazepine (Trileptal) 300 mg BID PO Last administered on 09/07/16 08:19; Admin Dose 300 MG; Start 09/03/16 at 09:00 Phenytoin 200 mg 200 mg HS PO Last administered on 09/06/16 21:03; Admin Dose 200 MG; Start 09/03/16 at 21:00 Ceftriaxone Sodium 50 ml @ 100 mls/hr DAILY IVPB Last administered on 08:05; Admin Dose 100 MLS/HR; Start 09/03/16 at 09:00 Dextrose/Sodium Chloride 1,000 ml @ 20 mls/hr Q24H IV Last administered on 09/06 13:08; Admin Dose 20 MLS/HR; Start 09/03/16 at 00:00 Valproate Sodium/ Dextrose (Depacon/D5W) 55 ml @ 55 mls/hr BID IVPB Last administered on 09/07/16 08:59; Admin Dose 55 MLS/HR; Start 09/03/16 at 12:00 Aspirin (Ecotrin) 325 mg DAILY PO Last administered on 09/07/16 08:19; Admin Dose 325 MG; Start 09/04/16 at 13:00 Miscellaneous Information 1 ea NOTE XX ; Start 09/05/16 at 09:30 Glucose (Glutose) 15 gm Q15M PRN PO DECREASED GLUCOSE; Start 09/05/16 at 09:30 Glucose (Glutose) 22.5 gm Q15M PRN PO DECREASED GLUCOSE; Start 09/05/16 at 09:30 Dextrose (D50w Syringe) 25 ml Q15M PRN IV DECREASED GLUCOSE; Start 09/05/16 at 09:30 Dextrose (D50w Syringe) 50 ml Q15M PRN IV DECREASED GLUCOSE; Start 09/05/16 at 09:30 Glucagon (Glucagen) 1 mg Q15M PRN IM DECREASED GLUCOSE; Start 09/05/16 at 09:30 Glucose (Glutose) 15 gm Q15M PRN BUCCAL DECREASED GLUCOSE; Start 09/05/16 at 09: 30 Zolpidem Tartrate (Ambien) 5 mg HS PRN PO INSOMNIA Last administered on 21:04; Admin Dose 5 MG; Start 09/05/16 at 19:30 Acetaminophen/ Codeine Phosphate (Tylenol No.3) 1 tab Q6H PRN PO PAIN Last administered on 09/06/16 02:59; Admin Dose 1 TAB; Start 09/05/16 at 19:30 Methylprednisolone Sodium Succinate (Solu-Medrol) 20 mg DAILY IV Last administered on 09/07/16 08:22; Admin Dose 20 MG; Start 09/07/16 at 09:00 Insulin Glargine (Lantus) 10 unit DAILY@08 SC Last administered on 09/07/16 08: 13; Admin Dose 10 UNIT; Start 09/06/16 at 15:30 Diagnostic Test (Pha) (Accu-Chek) 1 ea 02 XX ; Start 09/07/16 at 02:00 JALIL GLASS Sep 07, 2016 14:49
--- NOTE | 2016-09-07 19:19 | CONS ---
Date/Time of Note Date/Time of Note DATE: 09/07/16 TIME: 19:18 Consult Date/Type/Reason Admit Date/Time Sep 04, 2016 at 00:20 Initial Consult Date 09/03/16 Type of Consultation: Pulm Ordering Provider: SALVATORE CALZADA MD Subjective No events. Objective Vital Signs Date Time Temp Pulse Resp B/P Pulse Ox O2 Delivery O2 Flow Rate FiO2 09/07/16 19:04 70 16 97 21 09/07/16 15:39 97.6 121/73 09/06/16 00:00 Room Air 09/04/16 18:00 2.0 Intake and Output 09/06/16 09/06/16 09/07/16 15:00 23:00 07:00 Intake Total 105 ml 700 ml Output Total 700 ml Balance 105 ml 0 ml Exam HEENT: Neck supple; no JVD; no LAD CVS: RRR, S1 and S2 CHEST: Clear ABD: Soft, NT, + BS EXT: No c/c/e Results/Medications Result Diagram: 09/06/16 0455 09/06/16 0955 Results 24 hrs Laboratory Tests Test 09/06/16 20:44 09/07/16 02:15 09/07/16 08:05 09/07/16 11:39 Bedside Glucose 280 H 170 162 301 H Test 09/07/16 16:54 Bedside Glucose 196 Medications Current Medications Flumazenil (Romazicon) 0.2 mg Q1M PRN IV BENZODIAZEPINE OVERDOSE; Start at 20:00 Naloxone HCl (Narcan) 0.4 mg Q3M PRN IV DECREASED REPIRATORY RATE; Start at 20:00 Ondansetron HCl (Zofran Inj) 4 mg Q6H PRN IV NAUSEA AND/OR VOMITING; Start 09/02 at 20:00 Nitroglycerin (Nitroglycerin (Sl Tab) 0.4 Mg) 1 tab Q5M PRN SL CHEST PAIN; Start 09/02/16 at 20:00 Acetaminophen (Tylenol Supp) 650 mg Q4H PRN [place] PAIN LEVEL 1-3 OR FEVER; Start 09/02/16 at 20:00 Docusate Sodium (Colace) 100 mg Q12H PRN PO CONSTIPATION; Start 09/02/16 at 20: 00 Magnesium Hydroxide (Milk Of Mag) 30 ml DAILY PRN PO CONSTIPATION; Start at 20:00 Bisacodyl (Dulcolax) 5 mg DAILY PRN PO CONSTIPATION; Start 09/02/16 at 20:00 Bisacodyl (Dulcolax Supp) 10 mg DAILY PRN [place] CONSTIPATION; Start 09/02/16 at 20: 00 Acetaminophen (Tylenol Tab) 650 mg Q4H PRN PO MILD PAIN LEVEL 1-3 Last administered on 09/06/16 21:04; Admin Dose 650 MG; Start 09/03/16 at 00:00 Atorvastatin Calcium (Lipitor) 20 mg QHS PO Last administered on 09/06/16 21:03 ; Admin Dose 20 MG; Start 09/03/16 at 21:00 Bisacodyl (Dulcolax) 10 mg Q2D PRN PO CONSTIPATION; Start 09/03/16 at 00:00 Cholecalciferol (Vitamin D) 1,000 unit QAM PO Last administered on 09/07/16 08: 19; Admin Dose 1,000 UNIT; Start 09/03/16 at 09:00 Divalproex Sodium (Depakote Sprinkle) 500 mg BID PO ; Start 09/03/16 at 09:00; Status Future Hold Gabapentin (Neurontin) 100 mg TID PO Last administered on 09/07/16 13:01; Admin Dose 100 MG; Start 09/03/16 at 09:00 Magnesium Hydroxide (Milk Of Mag) 30 ml QHS PO Last administered on 09/06/16 21 :04; Admin Dose 30 ML; Start 09/03/16 at 21:00 Oxcarbazepine (Trileptal) 300 mg BID PO Last administered on 09/07/16 08:19; Admin Dose 300 MG; Start 09/03/16 at 09:00 Phenytoin 200 mg 200 mg HS PO Last administered on 09/06/16 21:03; Admin Dose 200 MG; Start 09/03/16 at 21:00 Ceftriaxone Sodium 50 ml @ 100 mls/hr DAILY IVPB Last administered on 08:05; Admin Dose 100 MLS/HR; Start 09/03/16 at 09:00 Valproate Sodium/ Dextrose (Depacon/D5W) 55 ml @ 55 mls/hr BID IVPB Last administered on 09/07/16 08:59; Admin Dose 55 MLS/HR; Start 09/03/16 at 12:00 Aspirin (Ecotrin) 325 mg DAILY PO Last administered on 09/07/16 08:19; Admin Dose 325 MG; Start 09/04/16 at 13:00 Miscellaneous Information 1 ea NOTE XX ; Start 09/05/16 at 09:30 Glucose (Glutose) 15 gm Q15M PRN PO DECREASED GLUCOSE; Start 09/05/16 at 09:30 Glucose (Glutose) 22.5 gm Q15M PRN PO DECREASED GLUCOSE; Start 09/05/16 at 09:30 Dextrose (D50w Syringe) 25 ml Q15M PRN IV DECREASED GLUCOSE; Start 09/05/16 at 09:30 Dextrose (D50w Syringe) 50 ml Q15M PRN IV DECREASED GLUCOSE; Start 09/05/16 at 09:30 Glucagon (Glucagen) 1 mg Q15M PRN IM DECREASED GLUCOSE; Start 09/05/16 at 09:30 Glucose (Glutose) 15 gm Q15M PRN BUCCAL DECREASED GLUCOSE; Start 09/05/16 at 09: 30 Zolpidem Tartrate (Ambien) 5 mg HS PRN PO INSOMNIA Last administered on 21:04; Admin Dose 5 MG; Start 09/05/16 at 19:30 Acetaminophen/ Codeine Phosphate (Tylenol No.3) 1 tab Q6H PRN PO PAIN Last administered on 09/06/16 02:59; Admin Dose 1 TAB; Start 09/05/16 at 19:30 Methylprednisolone Sodium Succinate (Solu-Medrol) 20 mg DAILY IV Last administered on 09/07/16 08:22; Admin Dose 20 MG; Start 09/07/16 at 09:00 Insulin Glargine (Lantus) 10 unit DAILY@08 SC Last administered on 09/07/16 08: 13; Admin Dose 10 UNIT; Start 09/06/16 at 15:30 Diagnostic Test (Pha) (Accu-Chek) 1 ea 02 XX ; Start 09/07/16 at 02:00 Nicotine (Nicoderm 21 Mg/ 24hr) 1 patch DAILY TRANSDERM ; Start 09/08/16 at 09:00 Assessment/Plan Additional Assessment/Plan IMP: 1. Possible aspiration pneumonia now clinically improved postextubation 2. Hypoxemic respiratory failure 3. History of seizure disorder 4. 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 Thrombocytopenia RECS: 1. Incentive spirometry and bronchodilators every 6 hours 2. De-escalate abx 3. Aspiration precautions and speech therapy recommendations, modified diet IMELDA CARRASCO MD Sep 07, 2016 19:19
[2016-09-07] MEDS: MAGNESIUM HYDROXIDE 30ML CUP PO SCH (21:12)
[2016-09-07] MEDS: ATORVASTATIN 20 MG TAB PO SCH (21:13)
[2016-09-07] MEDS: PHENYTOIN 100 MG CAP PO SCH (21:13)
--- NOTE | 2016-09-07 21:41 | PN ---
Date/Time of Note Date/Time of Note DATE: 09/07/16 TIME: 21:40 Assessment/Plan VTE Prophylaxis VTE Prophylaxis Intervention: other Lines/Catheters IV Catheter Type (from Nrs): Peripheral IV Urinary Cath still in place: Yes Reason Cath still needed: other (indicate) Assessment/Plan Chief Complaint/Hosp Course IMPRESSION: 1. Status post acute hypoxic respiratory failure due to choking episode. 2. The patient has ventilator dependent respiratory failure s/p extubation and urinary tract infection. 3. The patient has hyperglycemia, leukocytosis, and thrombocytopenia. better 4. The patient has a history of psychiatric disorder. PLAN PER PULMONARY AND CARDIO dec solumedrol insulin dc planning snf Problems: Subjective 24 Hr Interval Summary Subjective hx not possible: other (bs better) Exam/Review of Systems Vital Signs Vitals Vital Signs Date Time Temp Pulse Resp B/P Pulse Ox O2 Delivery O2 Flow Rate FiO2 09/07/16 20:10 91 09/07/16 19:24 98.5 15 105/63 94 09/07/16 19:04 21 09/06/16 00:00 Room Air 09/04/16 18:00 2.0 Intake and Output 09/06/16 09/06/16 09/07/16 15:00 23:00 07:00 Intake Total 105 ml 700 ml Output Total 700 ml Balance 105 ml 0 ml Exam Neck: supple Respiratory: clear to auscultation Cardiovascular: regular rate and rhythm Gastrointestinal: soft Musculoskeletal: nl extremities to inspection Extremities: normal pulses Results Result Diagram: 09/06/16 0455 09/06/16 0955 Results 24 hrs Laboratory Tests Test 09/07/16 02:15 09/07/16 08:05 09/07/16 11:39 09/07/16 16:54 Bedside Glucose 170 162 301 H 196 Test 09/07/16 21:19 Bedside Glucose 152 Medications Medications Current Medications Flumazenil (Romazicon) 0.2 mg Q1M PRN IV BENZODIAZEPINE OVERDOSE; Start at 20:00 Naloxone HCl (Narcan) 0.4 mg Q3M PRN IV DECREASED REPIRATORY RATE; Start at 20:00 Ondansetron HCl (Zofran Inj) 4 mg Q6H PRN IV NAUSEA AND/OR VOMITING; Start 09/02 at 20:00 Nitroglycerin (Nitroglycerin (Sl Tab) 0.4 Mg) 1 tab Q5M PRN SL CHEST PAIN; Start 09/02/16 at 20:00 Acetaminophen (Tylenol Supp) 650 mg Q4H PRN [place] PAIN LEVEL 1-3 OR FEVER; Start 09/02/16 at 20:00 Docusate Sodium (Colace) 100 mg Q12H PRN PO CONSTIPATION; Start 09/02/16 at 20: 00 Magnesium Hydroxide (Milk Of Mag) 30 ml DAILY PRN PO CONSTIPATION; Start at 20:00 Bisacodyl (Dulcolax) 5 mg DAILY PRN PO CONSTIPATION; Start 09/02/16 at 20:00 Bisacodyl (Dulcolax Supp) 10 mg DAILY PRN [place] CONSTIPATION; Start 09/02/16 at 20: 00 Acetaminophen (Tylenol Tab) 650 mg Q4H PRN PO MILD PAIN LEVEL 1-3 Last administered on 09/06/16 21:04; Admin Dose 650 MG; Start 09/03/16 at 00:00 Atorvastatin Calcium (Lipitor) 20 mg QHS PO Last administered on 09/07/16 21:13 ; Admin Dose 20 MG; Start 09/03/16 at 21:00 Bisacodyl (Dulcolax) 10 mg Q2D PRN PO CONSTIPATION; Start 09/03/16 at 00:00 Cholecalciferol (Vitamin D) 1,000 unit QAM PO Last administered on 09/07/16 08: 19; Admin Dose 1,000 UNIT; Start 09/03/16 at 09:00 Divalproex Sodium (Depakote Sprinkle) 500 mg BID PO ; Start 09/03/16 at 09:00; Status Future Hold Gabapentin (Neurontin) 100 mg TID PO Last administered on 09/07/16 21:13; Admin Dose 100 MG; Start 09/03/16 at 09:00 Magnesium Hydroxide (Milk Of Mag) 30 ml QHS PO Last administered on 09/07/16 21 :12; Admin Dose 30 ML; Start 09/03/16 at 21:00 Oxcarbazepine (Trileptal) 300 mg BID PO Last administered on 09/07/16 21:14; Admin Dose 300 MG; Start 09/03/16 at 09:00 Phenytoin 200 mg 200 mg HS PO Last administered on 09/07/16 21:13; Admin Dose 200 MG; Start 09/03/16 at 21:00 Ceftriaxone Sodium 50 ml @ 100 mls/hr DAILY IVPB Last administered on 08:05; Admin Dose 100 MLS/HR; Start 09/03/16 at 09:00 Valproate Sodium/ Dextrose (Depacon/D5W) 55 ml @ 55 mls/hr BID IVPB Last administered on 09/07/16 21:12; Admin Dose 55 MLS/HR; Start 09/03/16 at 12:00 Aspirin (Ecotrin) 325 mg DAILY PO Last administered on 09/07/16 08:19; Admin Dose 325 MG; Start 09/04/16 at 13:00 Miscellaneous Information 1 ea NOTE XX ; Start 09/05/16 at 09:30 Glucose (Glutose) 15 gm Q15M PRN PO DECREASED GLUCOSE; Start 09/05/16 at 09:30 Glucose (Glutose) 22.5 gm Q15M PRN PO DECREASED GLUCOSE; Start 09/05/16 at 09:30 Dextrose (D50w Syringe) 25 ml Q15M PRN IV DECREASED GLUCOSE; Start 09/05/16 at 09:30 Dextrose (D50w Syringe) 50 ml Q15M PRN IV DECREASED GLUCOSE; Start 09/05/16 at 09:30 Glucagon (Glucagen) 1 mg Q15M PRN IM DECREASED GLUCOSE; Start 09/05/16 at 09:30 Glucose (Glutose) 15 gm Q15M PRN BUCCAL DECREASED GLUCOSE; Start 09/05/16 at 09: 30 Zolpidem Tartrate (Ambien) 5 mg HS PRN PO INSOMNIA Last administered on 21:04; Admin Dose 5 MG; Start 09/05/16 at 19:30 Acetaminophen/ Codeine Phosphate (Tylenol No.3) 1 tab Q6H PRN PO PAIN Last administered on 09/06/16 02:59; Admin Dose 1 TAB; Start 09/05/16 at 19:30 Methylprednisolone Sodium Succinate (Solu-Medrol) 20 mg DAILY IV Last administered on 09/07/16 08:22; Admin Dose 20 MG; Start 09/07/16 at 09:00 Insulin Glargine (Lantus) 10 unit DAILY@08 SC Last administered on 09/07/16 08: 13; Admin Dose 10 UNIT; Start 09/06/16 at 15:30 Diagnostic Test (Pha) (Accu-Chek) 1 ea 02 XX ; Start 09/07/16 at 02:00 Nicotine (Nicoderm 21 Mg/ 24hr) 1 patch DAILY TRANSDERM ; Start 09/08/16 at 09:00 SALVATORE CALZADA MD Sep 07, 2016 21:41
[2016-09-08] VITALS (9 sets, daily range): BP systolic 110–126; BP diastolic 56–79; PULSE 70–92; RESP 15–18
[2016-09-08] MEDS: ALBUTEROL/IPRATROPIUM (NEB) 3 ML AMP HHN SCH ×3 (01:01→14:31)
[2016-09-08] MEDS: ZOLPIDEM 5 MG TAB PO PRN (01:13)
[2016-09-08] MEDS: ACCU-CHEK XX SCH (01:20)
[2016-09-08] MEDS: CHOLECALCIFEROL 1,000 UNIT TAB PO SCH (08:05)
[2016-09-08] MEDS: OXCARBAZEPINE 300 MG TAB PO SCH (08:06)
[2016-09-08] MEDS: ASPIRIN (EC) 325 MG TAB PO SCH (08:06)
[2016-09-08] MEDS: METHYLPREDNISOLONE 40 MG INJ IV SCH (08:07)
[2016-09-08] MEDS: GABAPENTIN 100 MG CAP PO SCH ×2 (08:07→12:01)
[2016-09-08] MEDS: CEFTRIAXONE 1 GM/50 ML (PMX) 50 ML IVPB SCH (08:09)
[2016-09-08] MEDS: VALPROATE INJ 500 MG in DEXTROSE 5% 50 ML IVPB SCH (08:14)
[2016-09-08] MEDS: INSULIN ASPART [NOVOLOG] 3 ML PEN SC SCH ×6 (08:16→17:18)
[2016-09-08] MEDS: INSULIN GLARGINE [LANtus] 3 ML PEN SC SCH (08:21)
[2016-09-08] MEDS ORDERED: NICOTINE (21 MG/24 HR) PATCH TRANSDERM SCH (09:00)
--- NOTE | 2016-09-08 13:06 | CONS ---
Date/Time of Note Date/Time of Note DATE: 09/08/16 TIME: 13:04 Assessment/Plan Assessment/Plan Chief Complaint/Hosp Course IMp: 1.Positive troponin-minimal ? type 2 infarct-now trended negative 2.HTN 3.abnl ecg-1 AVB 4.Resp failure-improved s/p extubation 5.psych 6.H/O CVA by CT 7.H/O sz d/o 8. Possible PNA 9.Thrombocytopenia Recc: -Tele -serial ecg's -Continue dilantin -Continue abx's/f/u cx data -Continue steroids/bronchodilators -Continue asa as tolerated Problems: Consultation Date/Type/Reason Admit Date/Time Sep 04, 2016 at 00:20 Initial Consult Date 09/03/16 Type of Consultation: Cardiology Referring Provider: SALVATORE CALZADA MD Exam/Review of Systems Vital Signs Vitals Vital Signs Date Time Temp Pulse Resp B/P Pulse Ox O2 Delivery O2 Flow Rate FiO2 09/08/16 12:04 78 09/08/16 11:53 98.0 18 110/66 98 09/08/16 07:57 21 09/08/16 04:00 Room Air 09/04/16 18:00 2.0 Intake and Output 09/07/16 09/07/16 09/08/16 15:00 23:00 07:00 Intake Total 1020 ml 700 ml Output Total 1300 ml Balance -280 ml 700 ml Exam Review of Systems: CONSTITUTIONAL: No fevers, chills. PULMONARY: No sob CARDIOVASCULAR: No chest pain/palpitations GASTROINTESTINAL: No nausea/vomiting. GENITOURINARY: No hematuria/dysuria. MUSCULOSKELETAL: No myagias/arthalgias. PSYCHIATRIC: The patient denies depression. NEUROLOGIC: No weakness Constitutional: alert, oriented Head: normocephalic ENMT: mucosa pink and moist Neck: jvd, supple Respiratory: diminished breath sounds (at bases/B) Cardiovascular: regular rate and rhythm Gastrointestinal: non-tender, soft Musculoskeletal: muscle tone (Normal) Extremities: edema (none) Results Result Diagram: 09/06/16 0455 09/06/16 0955 Results 24 hrs Laboratory Tests Test 09/07/16 16:54 09/07/16 21:19 09/08/16 07:39 09/08/16 11:54 Bedside Glucose 196 152 143 197 Medications Medications Current Medications Flumazenil (Romazicon) 0.2 mg Q1M PRN IV BENZODIAZEPINE OVERDOSE; Start at 20:00 Naloxone HCl (Narcan) 0.4 mg Q3M PRN IV DECREASED REPIRATORY RATE; Start at 20:00 Ondansetron HCl (Zofran Inj) 4 mg Q6H PRN IV NAUSEA AND/OR VOMITING; Start 09/02 at 20:00 Nitroglycerin (Nitroglycerin (Sl Tab) 0.4 Mg) 1 tab Q5M PRN SL CHEST PAIN; Start 09/02/16 at 20:00 Acetaminophen (Tylenol Supp) 650 mg Q4H PRN [place] PAIN LEVEL 1-3 OR FEVER; Start 09/02/16 at 20:00 Docusate Sodium (Colace) 100 mg Q12H PRN PO CONSTIPATION; Start 09/02/16 at 20: 00 Magnesium Hydroxide (Milk Of Mag) 30 ml DAILY PRN PO CONSTIPATION; Start at 20:00 Bisacodyl (Dulcolax) 5 mg DAILY PRN PO CONSTIPATION; Start 09/02/16 at 20:00 Bisacodyl (Dulcolax Supp) 10 mg DAILY PRN [place] CONSTIPATION; Start 09/02/16 at 20: 00 Acetaminophen (Tylenol Tab) 650 mg Q4H PRN PO MILD PAIN LEVEL 1-3 Last administered on 09/06/16 21:04; Admin Dose 650 MG; Start 09/03/16 at 00:00 Atorvastatin Calcium (Lipitor) 20 mg QHS PO Last administered on 09/07/16 21:13 ; Admin Dose 20 MG; Start 09/03/16 at 21:00 Bisacodyl (Dulcolax) 10 mg Q2D PRN PO CONSTIPATION; Start 09/03/16 at 00:00 Cholecalciferol (Vitamin D) 1,000 unit QAM PO Last administered on 09/08/16 08: 05; Admin Dose 1,000 UNIT; Start 09/03/16 at 09:00 Divalproex Sodium (Depakote Sprinkle) 500 mg BID PO ; Start 09/03/16 at 09:00; Status Future Hold Gabapentin (Neurontin) 100 mg TID PO Last administered on 09/08/16 12:01; Admin Dose 100 MG; Start 09/03/16 at 09:00 Magnesium Hydroxide (Milk Of Mag) 30 ml QHS PO Last administered on 09/07/16 21 :12; Admin Dose 30 ML; Start 09/03/16 at 21:00 Oxcarbazepine (Trileptal) 300 mg BID PO Last administered on 09/08/16 08:06; Admin Dose 300 MG; Start 09/03/16 at 09:00 Phenytoin 200 mg 200 mg HS PO Last administered on 09/07/16 21:13; Admin Dose 200 MG; Start 09/03/16 at 21:00 Ceftriaxone Sodium 50 ml @ 100 mls/hr DAILY IVPB Last administered on 08:09; Admin Dose 100 MLS/HR; Start 09/03/16 at 09:00 Valproate Sodium/ Dextrose (Depacon/D5W) 55 ml @ 55 mls/hr BID IVPB Last administered on 09/08/16 08:14; Admin Dose 55 MLS/HR; Start 09/03/16 at 12:00 Aspirin (Ecotrin) 325 mg DAILY PO Last administered on 09/08/16 08:06; Admin Dose 325 MG; Start 09/04/16 at 13:00 Miscellaneous Information 1 ea NOTE XX ; Start 09/05/16 at 09:30 Glucose (Glutose) 15 gm Q15M PRN PO DECREASED GLUCOSE; Start 09/05/16 at 09:30 Glucose (Glutose) 22.5 gm Q15M PRN PO DECREASED GLUCOSE; Start 09/05/16 at 09:30 Dextrose (D50w Syringe) 25 ml Q15M PRN IV DECREASED GLUCOSE; Start 09/05/16 at 09:30 Dextrose (D50w Syringe) 50 ml Q15M PRN IV DECREASED GLUCOSE; Start 09/05/16 at 09:30 Glucagon (Glucagen) 1 mg Q15M PRN IM DECREASED GLUCOSE; Start 09/05/16 at 09:30 Glucose (Glutose) 15 gm Q15M PRN BUCCAL DECREASED GLUCOSE; Start 09/05/16 at 09: 30 Zolpidem Tartrate (Ambien) 5 mg HS PRN PO INSOMNIA Last administered on 01:13; Admin Dose 5 MG; Start 09/05/16 at 19:30 Acetaminophen/ Codeine Phosphate (Tylenol No.3) 1 tab Q6H PRN PO PAIN Last administered on 09/06/16 02:59; Admin Dose 1 TAB; Start 09/05/16 at 19:30 Methylprednisolone Sodium Succinate (Solu-Medrol) 20 mg DAILY IV Last administered on 09/08/16 08:07; Admin Dose 20 MG; Start 09/07/16 at 09:00 Insulin Glargine (Lantus) 10 unit DAILY@08 SC Last administered on 09/08/16 08: 21; Admin Dose 10 UNIT; Start 09/06/16 at 15:30 Diagnostic Test (Pha) (Accu-Chek) 1 ea 02 XX ; Start 09/07/16 at 02:00 Nicotine (Nicoderm 21 Mg/ 24hr) 1 patch DAILY TRANSDERM Last administered on 08:08; Admin Dose 1 PATCH; Start 09/08/16 at 09:00 JALIL GLASS Sep 08, 2016 13:06
--- NOTE | 2016-09-08 16:11 | CONS ---
Date/Time of Note Date/Time of Note DATE: 09/08/16 TIME: 16:10 Consult Date/Type/Reason Admit Date/Time Sep 04, 2016 at 00:20 Initial Consult Date 09/03/16 Type of Consultation: Pulm Ordering Provider: SALVATORE CALZADA MD Subjective No events. doing well. Objective Vital Signs Date Time Temp Pulse Resp B/P Pulse Ox O2 Delivery O2 Flow Rate FiO2 09/08/16 16:06 92 09/08/16 15:55 98.0 18 115/56 98 09/08/16 14:33 21 09/08/16 04:00 Room Air 09/04/16 18:00 2.0 Intake and Output 09/07/16 09/07/16 09/08/16 15:00 23:00 07:00 Intake Total 1020 ml 700 ml Output Total 1300 ml Balance -280 ml 700 ml Exam HEENT: Neck supple; no JVD; no LAD CVS: RRR, S1 and S2 CHEST: Clear ABD: Soft, NT, + BS EXT: No c/c/e Results/Medications Result Diagram: 09/06/16 0455 09/06/16 0955 Results 24 hrs Laboratory Tests Test 09/07/16 16:54 09/07/16 21:19 09/08/16 07:39 09/08/16 11:54 Bedside Glucose 196 152 143 197 Medications Current Medications Flumazenil (Romazicon) 0.2 mg Q1M PRN IV BENZODIAZEPINE OVERDOSE; Start at 20:00 Naloxone HCl (Narcan) 0.4 mg Q3M PRN IV DECREASED REPIRATORY RATE; Start at 20:00 Ondansetron HCl (Zofran Inj) 4 mg Q6H PRN IV NAUSEA AND/OR VOMITING; Start 09/02 at 20:00 Nitroglycerin (Nitroglycerin (Sl Tab) 0.4 Mg) 1 tab Q5M PRN SL CHEST PAIN; Start 09/02/16 at 20:00 Acetaminophen (Tylenol Supp) 650 mg Q4H PRN [place] PAIN LEVEL 1-3 OR FEVER; Start 09/02/16 at 20:00 Docusate Sodium (Colace) 100 mg Q12H PRN PO CONSTIPATION; Start 09/02/16 at 20: 00 Magnesium Hydroxide (Milk Of Mag) 30 ml DAILY PRN PO CONSTIPATION; Start at 20:00 Bisacodyl (Dulcolax) 5 mg DAILY PRN PO CONSTIPATION; Start 09/02/16 at 20:00 Bisacodyl (Dulcolax Supp) 10 mg DAILY PRN [place] CONSTIPATION; Start 09/02/16 at 20: 00 Acetaminophen (Tylenol Tab) 650 mg Q4H PRN PO MILD PAIN LEVEL 1-3 Last administered on 09/06/16 21:04; Admin Dose 650 MG; Start 09/03/16 at 00:00 Atorvastatin Calcium (Lipitor) 20 mg QHS PO Last administered on 09/07/16 21:13 ; Admin Dose 20 MG; Start 09/03/16 at 21:00 Bisacodyl (Dulcolax) 10 mg Q2D PRN PO CONSTIPATION; Start 09/03/16 at 00:00 Cholecalciferol (Vitamin D) 1,000 unit QAM PO Last administered on 09/08/16 08: 05; Admin Dose 1,000 UNIT; Start 09/03/16 at 09:00 Divalproex Sodium (Depakote Sprinkle) 500 mg BID PO ; Start 09/03/16 at 09:00; Status Future Hold Gabapentin (Neurontin) 100 mg TID PO Last administered on 09/08/16 12:01; Admin Dose 100 MG; Start 09/03/16 at 09:00 Magnesium Hydroxide (Milk Of Mag) 30 ml QHS PO Last administered on 09/07/16 21 :12; Admin Dose 30 ML; Start 09/03/16 at 21:00 Oxcarbazepine (Trileptal) 300 mg BID PO Last administered on 09/08/16 08:06; Admin Dose 300 MG; Start 09/03/16 at 09:00 Phenytoin 200 mg 200 mg HS PO Last administered on 09/07/16 21:13; Admin Dose 200 MG; Start 09/03/16 at 21:00 Ceftriaxone Sodium 50 ml @ 100 mls/hr DAILY IVPB Last administered on 08:09; Admin Dose 100 MLS/HR; Start 09/03/16 at 09:00 Valproate Sodium/ Dextrose (Depacon/D5W) 55 ml @ 55 mls/hr BID IVPB Last administered on 09/08/16 08:14; Admin Dose 55 MLS/HR; Start 09/03/16 at 12:00 Aspirin (Ecotrin) 325 mg DAILY PO Last administered on 09/08/16 08:06; Admin Dose 325 MG; Start 09/04/16 at 13:00 Miscellaneous Information 1 ea NOTE XX ; Start 09/05/16 at 09:30 Glucose (Glutose) 15 gm Q15M PRN PO DECREASED GLUCOSE; Start 09/05/16 at 09:30 Glucose (Glutose) 22.5 gm Q15M PRN PO DECREASED GLUCOSE; Start 09/05/16 at 09:30 Dextrose (D50w Syringe) 25 ml Q15M PRN IV DECREASED GLUCOSE; Start 09/05/16 at 09:30 Dextrose (D50w Syringe) 50 ml Q15M PRN IV DECREASED GLUCOSE; Start 09/05/16 at 09:30 Glucagon (Glucagen) 1 mg Q15M PRN IM DECREASED GLUCOSE; Start 09/05/16 at 09:30 Glucose (Glutose) 15 gm Q15M PRN BUCCAL DECREASED GLUCOSE; Start 09/05/16 at 09: 30 Zolpidem Tartrate (Ambien) 5 mg HS PRN PO INSOMNIA Last administered on 01:13; Admin Dose 5 MG; Start 09/05/16 at 19:30 Acetaminophen/ Codeine Phosphate (Tylenol No.3) 1 tab Q6H PRN PO PAIN Last administered on 09/06/16 02:59; Admin Dose 1 TAB; Start 09/05/16 at 19:30 Methylprednisolone Sodium Succinate (Solu-Medrol) 20 mg DAILY IV Last administered on 09/08/16 08:07; Admin Dose 20 MG; Start 09/07/16 at 09:00 Insulin Glargine (Lantus) 10 unit DAILY@08 SC Last administered on 09/08/16 08: 21; Admin Dose 10 UNIT; Start 09/06/16 at 15:30 Diagnostic Test (Pha) (Accu-Chek) 1 ea 02 XX ; Start 09/07/16 at 02:00 Nicotine (Nicoderm 21 Mg/ 24hr) 1 patch DAILY TRANSDERM Last administered on 08:08; Admin Dose 1 PATCH; Start 09/08/16 at 09:00 Assessment/Plan Additional Assessment/Plan IMP: 1. Possible aspiration pneumonia 2. Hypoxemic respiratory failure 3. History of seizure disorder 4. 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 Thrombocytopenia RECS: 1. Incentive spirometry and bronchodilators every 6 hours 2. De-escalate abx 3. Aspiration precautions 4. PT/OT IMELDA Duffy MD Sep 08, 2016 16:11
--- NOTE | 2016-09-08 16:31 | PDOCDIS ---
Discharge Instructions CONDITION Patient Condition: Stable HOME CARE INSTRUCTIONS: Special Diet: puree diet. ACTIVITY: Activity Restrictions: Slowly Increase Activity FOLLOW UP/APPOINTMENTS Appointments f/u dr biswas [address] millan 1 wks SALVATORE CALZADA MD Sep 08, 2016 16:31
--- NOTE | 2016-09-08 16:36 | PDOCDIS ---
Discharge Instructions CONDITION Patient Condition: Stable HOME CARE INSTRUCTIONS: Special Diet: puree diet. ACTIVITY: Activity Restrictions: Slowly Increase Activity SALVATORE CALZADA MD Sep 08, 2016 16:36
--- NOTE | 2016-09-18 22:59 | QN ---
Documentation Comment [id number] SALVATORE CALZADA MD Sep 18, 2016 22:59
--- NOTE | 2016-09-19 06:48 | DS ---
DATE OF ADMISSION: 09/04/2016 DATE OF DISCHARGE: 09/08/2016 HISTORY OF PRESENT ILLNESS: A 60-year-old male who was admitted from senior care with history of anemia, history of dyslipidemia, history of depression, hypertension, history of pneumonia, history of constipation, presented with acute hypoxic respiratory failure due to choking episode. The patient has ventilator-dependent respiratory failure and UTI. The patient has hypoglycemia , leukocytosis, thrombocytopenia, history of psychiatric disorder. The patient was seen by Dr. Demetris Martinez. His impression: The patient has seizure disorder , history of CVA, history of hypertension, depression, anemia. The patient with possible The patient was extubated, monitored in intensive care unit, also was seen by Dr. Whitman in consultation. His impression: Positive troponin; minimal type 2 infarction; hypertension; normal ECG; first-degree AV block; respiratory failure, status post intubation; psychiatric disorder; history of CVA_ pneumonia. The patient followed very closely by Dr. Whitman, Dr. Garcia, and his impression, recommendations were followed. The patient went back to his baseline and was cleared to be discharged home. DISCHARGE DIAGNOSES: 1. Acute hypoxic respiratory failure status post choking episode, status post intubation, extubation. 2. Aspiration pneumonia. 3. Hypoxic respiratory failure. 4. Seizure disorder. 5. First-degree heart block. 6. Thrombocytopenia. The patient has coagulase-negative staph in the blood, possible contamination. Chest x-ray: No radiographic evidence of acute cardiopulmonary disease. DISCHARGE MEDICATIONS: Include the patient to continue on: 1. Aspirin. 2. Sliding scale. 3. Albuterol . 4. Nitroglycerin. 5. Prednisone. 6. Lipitor. 7. Bisacodyl. 8. Vitamin D3. 9. Depakote. 10. Gabapentin. 11. Lactulose. 12. pain meds 13. Manesium oxide. 12. [place]-3. 13. Trileptal. 14. Dilantin. 15. Propranolol. . The patient is stable at the time of discharge. Dictated By: SALVATORE NAGY/MIYA Conf#: [id number] DID#: [id number] MTDD
== END 2016-09-08 18:30 | DRG 208 ==
LOC: E/R 17:36 → ICU 09-03 23:54 → TEL 09-06 01:23
PROVIDERS: ADMIT Internal Medicine Nephrology; ATTEND Internal Medicine Nephrology
PROC: 5A1945Z Respiratory Ventilation, 24-96 Consecutive Hours (ICD-10-PCS; principal; 2016-09-02)
PROC: 0BH17EZ Insertion of Endotracheal Airway into Trachea, Via Natural or Artificial Opening (ICD-10-PCS; 2016-09-02)
DX: J96.01 Acute respiratory failure with hypoxia (principal); J69.0 Pneumonitis due to inhalation of food and vomit; G93.49 Other encephalopathy; N39.0 Urinary tract infection, site not specified; J96.02 Acute respiratory failure with hypercapnia; G93.89 Other specified disorders of brain; G40.909 Epilepsy, unspecified, not intractable, without status epilepticus; Z86.73 Personal history of transient ischemic attack (TIA), and cerebral infarction without residual deficits; F32.9 Major depressive disorder, single episode, unspecified; D64.9 Anemia, unspecified; I10 Essential (primary) hypertension; E78.5 Hyperlipidemia, unspecified; Z98.890 Other specified postprocedural states; F99 Mental disorder, not otherwise specified; I25.10 Atherosclerotic heart disease of native coronary artery without angina pectoris; R94.31 Abnormal electrocardiogram [ECG] [EKG]; I45.10 Unspecified right bundle-branch block; I44.0 Atrioventricular block, first degree; D69.6 Thrombocytopenia, unspecified; T17.920A Food in respiratory tract, part unspecified causing asphyxiation, initial encounter; X58.XXXA Exposure to other specified factors, initial encounter; Y92.099 Unspecified place in other non-institutional residence as the place of occurrence of the external cause
CPT/HCPCS: 31500; 36415; 36600; 70450; 71010; 80048; 80053; 81001; 81003; 82550; 82553; 82803; 82962; 83036; 83690; 83735; 84100; 84484; 85025; 85610; 87040; 87081; 87086; 92610; 93005; 93306; 94002; 94003; 94640; 94664; 94770; 96374; 96375; 96376; J0330; J0696; J1815; J1956; J2060; J2920; J2930; J7030; J7042

== ENCOUNTER 2016-11-26 22:17 | Observation (INO) | payer MEDICARE, OTHER ==
[~2016-11-26] VITALS: Ht 182.9 cm; Wt 89.8 kg
[~2016-11-26 22:17] MED LIST: ACET325T33 PO; ATOR20TA38 PO; BISA-57 PO; CHOL100062 PO; DIVA125C11 PO; FLEETPED PR; GABA100C PO; LACT20SO2 PO; MAGN250T5 PO; MAGN400O4 PO; NEPHROVITE PO; OMEG1CAP9 PO; OXCA300T3 PO; PHEN100C PO; PROP10TA6 PO
[2016-11-26] MEDS ORDERED: SOD CHLORIDE 0.9% 500 ML IV STA (22:24)
[2016-11-26 22:50] LABS: ADD SCAN DIFF NO
[2016-11-26 22:51] LABS: BASOPHILS % 0.4 % (0.0-2.0); EOSINOPHILS # 0.2 10^3/ul (0.0-0.5); EOSINOPHILS % 1.7 % (0.0-7.0); HEMATOCRIT 40.2 % (42.0-52.0); HEMOGLOBIN 13.8 g/dl (14.0-18.0); LYMPHOCYTES # 2.9 10^3/ul (0.8-2.9); LYMPHOCYTES % 31.3 % (15.0-51.0); MEAN CORPUSCULAR HEMOGLOBIN 32.9 pg (29.0-33.0); MEAN CORPUSCULAR HGB CONC 34.3 g/dl (32.0-37.0); MEAN CORPUSCULAR VOLUME 95.9 fl (82.0-101.0); MEAN PLATELET VOLUME 12.2 fl (7.4-10.4); MONOCYTE # 0.7 10^3/ul (0.3-0.9); MONOCYTES % 7.8 % (0.0-11.0); NEUTROPHIL # 5.5 10^3/ul (1.6-7.5); NEUTROPHILS % 58.4 % (39.0-77.0); PLATELET COUNT 121 10^3/UL (140-415); RED BLOOD COUNT 4.19 10^6/ul (4.70-6.10); RED CELL DISTRIBUTION WIDTH 11.9 % (11.5-14.5); WHITE BLOOD COUNT 9.4 10^3/ul (4.8-10.8)
--- NOTE | 2016-11-26 22:56 | RADRPT ---
PROCEDURE: XR Chest. CLINICAL INDICATION: Seizure. TECHNIQUE: Single frontal view of the chest. COMPARISON: 09/05/2016 FINDINGS: Mild cardiomegaly and atherosclerotic calcifications in the thoracic aorta. The lungs are clear. No signs of pleural fluid or pneumothorax are seen. The osseous structures and soft tissues are unremar kable. IMPRESSION: No evidence for active cardiopulmonary disease. RPTAT: [facility] Physician Perry Date Time Electronically viewed and signed by Abby Mason Physician on 11/26/2016 22:56 RS/
[2016-11-26 23:13] LABS: ALANINE AMINOTRANSFERASE 52 IU/L (13-69); ALBUMIN 4.7 g/dl (3.3-4.9); ALKALINE PHOSPHATASE 64 IU/L (42-121); ANION GAP 14 (8-16); ASPARTATE AMINO TRANSFERASE 38 IU/L (15-46); BILIRUBIN,INDIRECT 0.1 mg/dl (0-1.1); BILIRUBIN,TOTAL 0.1 mg/dl (0.2-1.3); BLOOD UREA NITROGEN 26 mg/dl (7-20); CALCIUM 9.1 mg/dl (8.4-10.2); CARBON DIOXIDE 31 mmol/L (21-31); CHLORIDE 100 mmol/L (97-110); CREATININE 1.01 mg/dl (0.61-1.24); GLUCOSE 143 mg/dl (70-220); POTASSIUM 5.5 mmol/L (3.5-5.1); SODIUM 139 mmol/L (135-144); TOTAL PROTEIN 8.3 g/dl (6.1-8.1)
[2016-11-26 23:15] LABS: VALPROATE 67 ug/ml (50-100)
[2016-11-26 23:20] LABS: CARBAMAZEPINE (TEGRETOL) < 3.0 ug/ml (8.0-12.0)
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
[2016-11-26 23:42] LABS: TROPONIN-I < 0.012 ng/ml (0.00-0.12)
[2016-11-27] VITALS (12 sets, daily range): BP systolic 99–128; BP diastolic 55–82; PULSE 61–69; RESP 17–20; TEMP 97.5; Ht 182.9 cm; Wt 89.8 kg
[2016-11-27] MEDS ORDERED: SOD CHLORIDE 0.9% 1,000 ML IV ONE (01:00)
--- NOTE | 2016-11-27 01:58 | ERA ---
ER Documentation Chief Complaint Date/Time DATE: 11/27/16 TIME: 01:56 Chief Complaint more altered than norml, per SNF HPI This is a 61-year-old male sent in from half-way facility for be more altered than normal. Apparently is more altered per normal. Patient is a poor historian. History is per EMS and nursing of dementia. Unknown start time of alteration ROS All systems reviewed and are negative except as per history of present illness. Medications Home Meds Reported Medications Sod Phosphate/Sod Biphosphate* (Fleet* Enema Pediatric) 66.6 Ml Soln, 66.6 ML [place] DAILY Y for CONSTIPATION, ENEMA 09/02/16 Acetaminophen* (Tylenol*) 325 Mg Tablet, 650 MG PO Q4H Y for MILD PAIN LEVEL 1-3 , TAB AND FOR FEVER>100 09/02/16 Magnesium Hydroxide* (Milk Of Magnesia*) 400 Mg/5 Ml Oral.susp, 30 ML PO QHS, ML 09/02/16 Bisacodyl* (Dulcolax*) 5 Mg Tablet.dr, 10 MG PO Q2D Y for CONSTIPATION, TAB 09/02/16 Cholecalciferol* (Vitamin D3*) 1,000 Unit Tablet, 1000 UNIT PO QAM, TAB 09/02/16 Oxcarbazepine* (Trileptal*) 300 Mg Tablet, 300 MG PO BID, TAB 09/02/16 Propranolol Hcl* (Propranolol Hcl*) 10 Mg Tablet, 10 MG PO TID, TAB HOLD IF SBP<110 HR<60 9AM,1PM,5PM. 09/02/16 Gabapentin* (Neurontin*) 100 Mg Capsule, 100 MG PO TID, #90 CAP TAKE 9AM,1PM,5PM. 09/02/16 [Nephrovite] No Conflict Check, 1 TAB PO QAM 09/02/16 Magnesium Oxide (Magnesium) 250 Mg Tablet, 250 MG PO BID, TAB 09/02/16 Atorvastatin Calcium* (Atorvastatin Calcium*) 20 Mg Tablet, 20 MG PO QHS, #30 TAB 09/02/16 [place]-3 Fatty Acids/Fish Oil (Fish Oil 1,000 mg Softgel) 1 Each Capsule, 1 EACH PO QAM, CAP 09/02/16 Divalproex Sodium* (Depakote* Sprinkle) 125 Mg Cap.sprink, 500 MG PO BID, #360 CAP 09:00 AM AND 05:00 PM 09/02/16 Discontinued Reported Medications Phenytoin* Sodium Extended (Dilantin*) 100 Mg Capsule, 200 MG PO HS, CAP 09/02/16 Lactulose* (Lactulose*) 20 Gm/30 Ml Solution, 45 GM PO QID, ML TAKE 9AM,1PM,5PM,9PM. 09/02/16 Allergies Allergies: Coded Allergies: No Known Allergy (Unverified , 11/26/16) PMhx/Soc Hx Neurological Disorder: Yes (CVA, seizure, polyneuropathy) Hx Respiratory Disorders: Yes (ARF) Hx Cardiac Disorders: Yes (HTN) Hx Psychiatric Problems: Yes (depression, dementia) Hx Miscellaneous Medical Probl: Yes (DM2, hepatic failure/encephalopathy, constipation) Hx Alcohol Use: Yes (claims to drink daily??) Hx Substance Use: Yes (marijuana??) Hx Tobacco Use: Yes (calims to daily?) Smoking Status: Current some day smoker Physical Exam Vitals Vital Signs Date Time Temp Pulse Resp B/P Pulse Ox O2 Delivery O2 Flow Rate FiO2 11/27/16 01:10 66 12 101/76 100 Nasal Cannula 2.0 11/27/16 00:32 64 12 78/61 98 Nasal Cannula 2.0 11/27/16 00:11 64 14 86/66 98 Nasal Cannula 2.0 11/26/16 22:24 97.5 73 13 125/86 100 Physical Exam Const: [] Head: Atraumatic Eyes: Normal Conjunctiva ENT: Normal External Ears, Nose and Mouth. Neck: Full range of motion..~ No meningismus. Resp: Clear to auscultation bilaterally Cardio: Regular rate and rhythm, no murmurs Abd: Soft, non tender, non distended. Normal bowel sounds Skin: No petechiae or rashes Back: No midline or flank tenderness Ext: No cyanosis, or edema Neur: Awake and alert Psych: Normal Mood and Affect Result Diagram: 11/26/16224011/26/162240 Results 24 hrs Laboratory Tests Test 11/26/16 22:41 11/26/16 22:55 11/27/16 00:55 White Blood Count 9.410^3/ul Red Blood Count 4.1910^6/ul Hemoglobin 13.8g/dl Hematocrit 40.2% Mean Corpuscular Volume 95.9fl Mean Corpuscular Hemoglobin 32.9pg Mean Corpuscular Hemoglobin Concent 34.3g/dl Red Cell Distribution Width 11.9% Platelet Count 83809^3/UL Mean Platelet Volume 12.2fl Neutrophils % 58.4% Lymphocytes % 31.3% Monocytes % 7.8% Eosinophils % 1.7% Basophils % 0.4% Nucleated Red Blood Cells % 0.0/100WBC Neutrophils # 5.510^3/ul Lymphocytes # 2.910^3/ul Monocytes # 0.710^3/ul Eosinophils # 0.210^3/ul Basophils # 0.010^3/ul Nucleated Red Blood Cells # 0.010^3/ul Sodium Level 139mmol/L Potassium Level 5.5mmol/L Chloride Level 100mmol/L Carbon Dioxide Level 31mmol/L Anion Gap 14 Blood Urea Nitrogen 26mg/dl Creatinine 1.01mg/dl Glucose Level 143mg/dl Calcium Level 9.1mg/dl Total Bilirubin 0.1mg/dl Direct Bilirubin 0.00mg/dl Indirect Bilirubin 0.1mg/dl Aspartate Amino Transf (AST/SGOT) 38IU/L Alanine Aminotransferase (ALT/SGPT) 52IU/L Alkaline Phosphatase 64IU/L Troponin I < 0.012ng/ml Total Protein 8.3g/dl Albumin 4.7g/dl Globulin 3.60g/dl Albumin/Globulin Ratio 1.30 Phenytoin (Dilantin) Level 19.1ug/ml Valproic Acid (Depakene) Level 67ug/ml Carbamazepine (Tegretol) Level < 3.0ug/ml Bedside Glucose 240mg/dL Lactic Acid Level 1.8mmol/L Current Medications Medications (Trade) Dose Ordered Sig/Romain Route PRN Reason Start Time Stop Time Status Last Admin Dose Admin Sodium Chloride 500 ml @ 500 mls/hr Q1H STAT IV 11/26/16 22:24 11/26/16 23:23 DC 11/26/16 23:53 Sodium Chloride (NS) 1,000 ml @ 1,000 mls/hr Q1H ONCE IV 11/27/16 01:00 11/27/16 01:59 11/27/16 00:42 Procedures/MDM EKG: Rate/Rhythm: Normal Sinus Rhythm QRS, ST, T-waves: No changes consistent w/ acute ischemia Impression: No evidence of ischemia or arrhythmia Chest X-ray 1V Interpreted by me: Soft Tissue: No acute abnormalities Bones: No acute abnormalities Mediastinum/Cardiac Silhouette/Lungs: No acute abnormalities CT of the head shows no acute abnormalities Medical decision-making: Gentleman here with increasing alteration in mental status. No evidence of acute stroke. Patient will be admitted to Dr. Gavin to telemetry for further workup and evaluation Departure Diagnosis: Primary Impression: Altered mental status Qualified Code: R41.82 - Altered mental status, unspecified altered mental status type Additional Impression: Altered level of consciousness Condition: Serious THUANTHANIABROOKLYNNELLIEAmber Nov 27, 2016 01:57
[2016-11-27 02:02] LABS: ADD UMIC NO; UR ASCORBIC ACID NEGATIVE (NEGATIVE); UR BILIRUBIN (Dip) NEGATIVE (NEGATIVE); UR BLOOD (Dip) NEGATIVE (NEGATIVE); UR CLARITY CLEAR (CLEAR); UR COLOR YELLOW (YELLOW); UR GLUCOSE (Dip) NEGATIVE (NEGATIVE); UR KETONES (Dip) NEGATIVE (NEGATIVE); UR LEUKOCYTE ESTERASE (Dip) NEGATIVE Leu/ul (NEGATIVE); UR NITRITE (Dip) NEGATIVE (NEGATIVE); UR SPECIFIC GRAVITY (Dip) 1.016 (1.003-1.030); UR TOTAL PROTEIN (Dip) NEGATIVE (NEGATIVE); UR UROBILINOGEN (Dip) NEGATIVE (NEGATIVE)
[2016-11-27 02:47] LABS: BARBITURATES NEGATIVE (NEGATIVE); BENZODIAZEPINES NEGATIVE (NEGATIVE); CANNABINOIDS NEGATIVE (NEGATIVE); COCAINE NEGATIVE (NEGATIVE); OPIATES NEGATIVE (NEGATIVE)
[2016-11-27] MEDS: PANTOPRAZOLE 40 MG INJ IV SCH (07:00)
[2016-11-27] MEDS ORDERED: ACETAMINOPHEN 650MG/20.3ML CUP PO PRN (07:00)
[2016-11-27] MEDS: DEXTROSE 5%-0.9% NACL 1,000 ML IV SCH ×2 (07:00→23:40)
[2016-11-27] MEDS ORDERED: GLUCOSE GEL 15 GRAM TUBE PO PRN ×2 (15:00)
[2016-11-27] MEDS ORDERED: GLUCAGON 1 MG INJ IM PRN (15:00)
[2016-11-27] MEDS ORDERED: GLUCOSE GEL 15 GRAM TUBE BUCCAL PRN (15:00)
[2016-11-27] MEDS ORDERED: DEXTROSE 50% 50 ML SYRINGE IV PRN ×2 (15:00)
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
[2016-11-27] MEDS: INSULIN ASPART [NOVOLOG] 3 ML PEN SC SCH ×2 (18:16→21:04)
[2016-11-27] MEDS ORDERED: BISACODYL (EC) 5 MG TAB PO PRN (18:30)
[2016-11-27] MEDS ORDERED: ACETAMINOPHEN 325 MG TAB PO PRN (18:30)
[2016-11-27] MEDS ORDERED: NA PHOSPHATE/BIPHOS 66.6 ML ENEMA PR PRN (18:30)
[2016-11-27] MEDS: [UNRECOGNIZED DRUG - REMARK] XX SCH (20:00)
[2016-11-27] MEDS: FISH OIL 1,000 MG CAP PO SCH (20:00)
[2016-11-27] MEDS: GABAPENTIN 100 MG CAP PO SCH (21:02)
[2016-11-27] MEDS: MAGNESIUM HYDROXIDE 30ML CUP PO SCH (21:02)
[2016-11-27] MEDS: MAGNESIUM OXIDE 400 MG TAB PO SCH (21:02)
[2016-11-27] MEDS: ATORVASTATIN 20 MG TAB PO SCH (21:02)
[2016-11-27] MEDS: PROPRANOLOL 10 MG TAB PO SCH (21:13)
[2016-11-27] MEDS ORDERED: NA PHOSPHATE/BIPHOS 133 ML ENEMA PR PRN (21:30)
[2016-11-27] MEDS: OXCARBAZEPINE 300 MG TAB PO SCH (22:13)
[2016-11-27] MEDS: DIVALPROEX SPRINKLE 125 MG CAP PO SCH (22:13)
--- NOTE | 2016-11-27 23:24 | HP ---
Date/Time of Note Date/Time of Note DATE: 11/27/16 TIME: 23:21 Assessment/Plan VTE Prophylaxis VTE Prophylaxis Intervention: other Lines/Catheters IV Catheter Type (from [facility]): Peripheral IV Urinary Cath still in place: No Assessment/Plan Chief Complaint/Hosp Course ams hyperkalemia ashd hx depression dehydration hx of 1. Acute hypoxic respiratory failure status post choking episode, status post intubation, extubation. 2. Aspiration pneumonia. 3. Hypoxic respiratory failure. 4. Seizure disorder. 5. First-degree heart block. 6. Thrombocytopenia. plan per order Problems: HPI/ROS Admit Date/Time Admit Date/Time Nov 27, 2016 at 01:56 ROS Subjective hx not possible: pt non-verbal Eyes: no complaints ENT: no complaints Respiratory: no complaints Cardiovascular: no complaints Gastrointestinal: no complaints Genitourinary: no complaints Musculoskeletal: bone/joint pain Skin: no complaints Neurologic: confusion Psychological: confusion PMH/Family/Social Past Medical History Medical History: high cholesterol, hypertension, other (seizure disorder) Past Surgical History Past Surgical Hx: no surgical history Social History Alcohol Use: none Smoking Status: Current every day smoker Drug Use: none Exam/Review of Systems Vital Signs Vitals Vital Signs Date Time Temp Pulse Resp B/P Pulse Ox O2 Delivery O2 Flow Rate FiO2 11/27/16 20:50 Nasal Cannula 2.0 11/27/16 20:24 97.6 68 17 117/71 100 Exam Constitutional: alert Head: normocephalic Eyes: EOMI, nl conjunctiva ENMT: nl external ears & nose, nl lips & teeth, nl nasal mucosa & septum Neck: non-tender, supple Respiratory: clear to auscultation, normal air movement Cardiovascular: nl pulses, regular rate and rhythm Gastrointestinal: nl liver, spleen, non-tender, soft Genitourinary - Male: No CVA tenderness Musculoskeletal: nl extremities to inspection Extremities: normal pulses Neurological: confused Skin: No rash or lesions Labs Result Diagram: 11/26/16224011/26/162240 Medications Medications Current Medications Dextrose/Sodium Chloride (D5-NS) 1,000 ml @ 60 mls/hr [id number] IV Last administered on 11/27/16t 07:00; Admin Dose 60 MLS/HR; Start 11/27/16 at 07:00 Pantoprazole (Protonix Iv) 40 mg DAILY@06 IV Last administered on 11/27/16 07: 00; Admin Dose 40 MG; Start 11/27/16 at 07:00 Acetaminophen (Tylenol Liquid) 650 mg Q4H PRN PO PAIN AND OR ELEVATED TEMP; Start 11/27/16 at 07:00 Diagnostic Test (Pha) (Accu-Chek) 1 ea 02 XX ; Start 11/28/16 at 02:00 Miscellaneous Information 1 ea NOTE XX ; Start 11/27/16 at 15:00 Glucose (Glutose) 15 gm Q15M PRN PO DECREASED GLUCOSE; Start 11/27/16 at 15:00 Glucose (Glutose) 22.5 gm Q15M PRN PO DECREASED GLUCOSE; Start 11/27/16 at 15: 00 Dextrose (D50w Syringe) 25 ml Q15M PRN IV DECREASED GLUCOSE; Start 11/27/16 at 15:00 Dextrose (D50w Syringe) 50 ml Q15M PRN IV DECREASED GLUCOSE; Start 11/27/16 at 15:00 Glucagon (Glucagen) 1 mg Q15M PRN IM DECREASED GLUCOSE; Start 11/27/16 at 15:00 Glucose (Glutose) 15 gm Q15M PRN BUCCAL DECREASED GLUCOSE; Start 11/27/16 at 15 :00 Acetaminophen (Tylenol Tab) 650 mg Q4H PRN PO MILD PAIN LEVEL 1-3; Start at 18:30 Atorvastatin Calcium (Lipitor) 20 mg QHS PO Last administered on 11/27/16 21: 02; Admin Dose 20 MG; Start 11/27/16 at 21:00 Bisacodyl (Dulcolax) 10 mg Q2D PRN PO CONSTIPATION; Start 11/27/16 at 18:30 Cholecalciferol (Vitamin D) 1,000 unit QAM PO ; Start 11/28/16 at 09:00 Divalproex Sodium (Depakote Sprinkle) 500 mg BID PO Last administered on 22:13; Admin Dose 500 MG; Start 11/27/16 at 21:00 Gabapentin (Neurontin) 100 mg TID PO Last administered on 11/27/16 21:02; Admin Dose 100 MG; Start 11/27/16 at 21:00 Magnesium Hydroxide (Milk Of Mag) 30 ml QHS PO Last administered on 11/27/16 21:02; Admin Dose 30 ML; Start 11/27/16 at 21:00 Oxcarbazepine (Trileptal) 300 mg BID PO Last administered on 11/27/16 22:13; Admin Dose 300 MG; Start 11/27/16 at 21:00 Propranolol HCl (Inderal) 10 mg TID PO Last administered on 11/27/16 21:13; Admin Dose 10 MG; Start 11/27/16 at 21:00 Sodium Biphosphate/ Sodium Phosphate (Fleet Enema Pediatric) 66.6 ml DAILY PRN [place] CONSTIPATION; Start 11/27/16 at 18:30 Magnesium Oxide (Mag-Ox 400) 400 mg BID PO Last administered on 11/27/16 21:02 ; Admin Dose 400 MG; Start 11/27/16 at 21:00 Fish Oil (Fish Oil) 1,000 mg DAILY PO ; Start 11/27/16 at 20:00 Multivit/Ca Carb/ B Cmplx/FA/Prenat (Mitali-Uam) 1 tab DAILY PO ; Start 11/28/16 at 09:00 Miscellaneous Information (*Order Clarification Bulletin) FLEETS ENEMA...PT US... Q8H XX ; Start 11/27/16 at 20:00 Sodium Biphosphate/ Sodium Phosphate (Fleet Enema) 133 ml DAILY PRN [place] CONSTIPATION; Start 11/27/16 at 21:30 SALVATORE CALZADA MD Nov 27, 2016 23:23
[2016-11-27] MEDS ORDERED: NA POLYST SULFON 15 GM/60 ML BTL PO ONE (23:30)
[2016-11-28] VITALS (11 sets, daily range): BP systolic 96–127; BP diastolic 52–71; PULSE 60–72; RESP 16–18
[2016-11-28] MEDS: CEFTRIAXONE 1 GM/50 ML (PMX) 50 ML IVPB SCH (00:37)
[2016-11-28] MEDS: SOD CHLORIDE 0.9% 1,000 ML IV SCH ×3 (00:38→21:16)
[2016-11-28] MEDS ORDERED: NA POLYST SULFON 15 GM/60 ML BTL PO ONE (01:43)
[2016-11-28] MEDS: ACCU-CHEK XX SCH (02:00)
[2016-11-28] MEDS ORDERED: ACCU-CHEK XX SCH (02:00)
[2016-11-28] MEDS: [UNRECOGNIZED DRUG - REMARK] XX SCH ×3 (04:00→20:00)
[2016-11-28] MEDS: PANTOPRAZOLE 40 MG INJ IV SCH (06:00)
[2016-11-28] MEDS: INSULIN ASPART [NOVOLOG] 3 ML PEN SC SCH ×4 (07:55→21:00)
[2016-11-28 08:08] LABS: ADD SCAN DIFF NO
[2016-11-28 08:16] LABS: ABNORMAL IP MESSAGE 1; BASOPHILS % 0.5 % (0.0-2.0); EOSINOPHILS # 0.2 10^3/ul (0.0-0.5); EOSINOPHILS % 2.6 % (0.0-7.0); HEMOGLOBIN 11.9 g/dl (14.0-18.0); LYMPHOCYTES # 2.1 10^3/ul (0.8-2.9); LYMPHOCYTES % 32.3 % (15.0-51.0); MEAN CORPUSCULAR HEMOGLOBIN 33.2 pg (29.0-33.0); MEAN PLATELET VOLUME 12.6 fl (7.4-10.4); MONOCYTE # 0.6 10^3/ul (0.3-0.9); MONOCYTES % 9.7 % (0.0-11.0); NEUTROPHIL # 3.6 10^3/ul (1.6-7.5); NEUTROPHILS % 54.7 % (39.0-77.0); PLATELET COUNT 85 10^3/UL (140-415); RED BLOOD COUNT 3.58 10^6/ul (4.70-6.10); RED CELL DISTRIBUTION WIDTH 11.3 % (11.5-14.5); WHITE BLOOD COUNT 6.6 10^3/ul (4.8-10.8)
[2016-11-28] MEDS: FISH OIL 1,000 MG CAP PO SCH ×2 (09:00→09:43)
[2016-11-28 09:38] LABS: CALCIUM 8.2 mg/dl (8.4-10.2); CREATININE 0.88 mg/dl (0.61-1.24); POTASSIUM 4.2 mmol/L (3.5-5.1)
[2016-11-28] MEDS: MULTIVIT/CA CARB/B CMPLX/FA TAB PO SCH (09:42)
[2016-11-28] MEDS: MAGNESIUM OXIDE 400 MG TAB PO SCH ×2 (09:42→21:09)
[2016-11-28] MEDS: OXCARBAZEPINE 300 MG TAB PO SCH ×2 (09:43→21:09)
[2016-11-28] MEDS: CHOLECALCIFEROL 1,000 UNIT TAB PO SCH (09:43)
[2016-11-28] MEDS: PROPRANOLOL 10 MG TAB PO SCH ×3 (09:43→21:09)
[2016-11-28] MEDS: DIVALPROEX SPRINKLE 125 MG CAP PO SCH ×2 (09:43→21:08)
[2016-11-28] MEDS: GABAPENTIN 100 MG CAP PO SCH ×3 (09:43→21:09)
--- NOTE | 2016-11-28 17:51 | CONS ---
Date/Time of Note Date/Time of Note DATE: 11/28/16 TIME: 17:47 Assessment/Plan Assessment/Plan Chief Complaint/Hosp Course IMP: 1.ABNL ecg-diffuse NSSTWA's. Negative trop x 3 since admit 2.HTN 3.HL 4.Seizure d/o 5.DM 6.Encephalopathy Rec: -Tele -serial ecg's -patient s/p echo 09/16 with NL EF -Continue propranolol -Follow BS closely -Follow resp status closely Problems: Consultation Date/Type/Reason Admit Date/Time Nov 27, 2016 at 01:56 Initial Consult Date 11/27/16 Type of Consultation: cardiology Reason for Consultation abnl ecg Referring Provider: SALVATORE CALZADA MD Exam/Review of Systems Vital Signs Vitals Vital Signs Date Time Temp Pulse Resp B/P Pulse Ox O2 Delivery O2 Flow Rate FiO2 11/28/16 16:20 63 11/28/16 15:05 97.8 18 112/71 100 11/28/16 08:40 Nasal Cannula 2.0 Intake and Output 11/27/16 11/27/16 11/28/16 15:00 23:00 07:00 Intake Total 360 ml 700 ml Balance 360 ml 700 ml Exam Review of Systems: CONSTITUTIONAL: No fevers, chills. PULMONARY: No sob CARDIOVASCULAR: No chest pain/palpitations GASTROINTESTINAL: No nausea/vomiting. GENITOURINARY: No hematuria/dysuria. MUSCULOSKELETAL: No myagias/arthalgias. PSYCHIATRIC: The patient denies depression. NEUROLOGIC: lethargic Constitutional: other (sleeping, arousable) Head: normocephalic ENMT: mucosa pink and moist Neck: jvd (8-9 cm water), supple Respiratory: diminished breath sounds (at bases/B) Cardiovascular: regular rate and rhythm Gastrointestinal: non-tender, soft Musculoskeletal: muscle tone (normal) Extremities: edema (none) Neurological: other (No focal deficits) Results Result Diagram: 11/28/16 0700 11/28/16 0700 Results 24 hrs Laboratory Tests Test 11/27/16 18:09 11/27/16 20:19 11/28/16 07:00 11/28/16 08:10 Bedside Glucose 188 212 134 White Blood Count 6.6 # Red Blood Count 3.58 L Hemoglobin 11.9 L Hematocrit 34.0 L Mean Corpuscular Volume 95.0 Mean Corpuscular Hemoglobin 33.2 H Mean Corpuscular Hemoglobin Concent 35.0 Red Cell Distribution Width 11.3 L Platelet Count 85 #L Mean Platelet Volume 12.6 H Neutrophils % 54.7 Lymphocytes % 32.3 Monocytes % 9.7 Eosinophils % 2.6 Basophils % 0.5 Nucleated Red Blood Cells % 0.0 Neutrophils # 3.6 Lymphocytes # 2.1 Monocytes # 0.6 Eosinophils # 0.2 Basophils # 0.0 Nucleated Red Blood Cells # 0.0 Sodium Level 136 Potassium Level 4.2 Chloride Level 104 Carbon Dioxide Level 26 Anion Gap 10 Blood Urea Nitrogen 17 # Creatinine 0.88 Glucose Level 114 Calcium Level 8.2 L Triglycerides Level 182 H Cholesterol Level 112 LDL Cholesterol, Calculated 48 HDL Cholesterol 28 L Cholesterol/HDL Ratio 4.0 Test 11/28/16 11:50 11/28/16 17:41 Bedside Glucose 150 137 Medications Medications Current Medications Acetaminophen (Tylenol Liquid) 650 mg Q4H PRN PO PAIN AND OR ELEVATED TEMP; Start 11/27/16 at 07:00 Diagnostic Test (Pha) (Accu-Chek) 1 ea 02 XX ; Start 11/28/16 at 02:00 Miscellaneous Information 1 ea NOTE XX ; Start 11/27/16 at 15:00 Glucose (Glutose) 15 gm Q15M PRN PO DECREASED GLUCOSE; Start 11/27/16 at 15:00 Glucose (Glutose) 22.5 gm Q15M PRN PO DECREASED GLUCOSE; Start 11/27/16 at 15: 00 Dextrose (D50w Syringe) 25 ml Q15M PRN IV DECREASED GLUCOSE; Start 11/27/16 at 15:00 Dextrose (D50w Syringe) 50 ml Q15M PRN IV DECREASED GLUCOSE; Start 11/27/16 at 15:00 Glucagon (Glucagen) 1 mg Q15M PRN IM DECREASED GLUCOSE; Start 11/27/16 at 15:00 Glucose (Glutose) 15 gm Q15M PRN BUCCAL DECREASED GLUCOSE; Start 11/27/16 at 15 :00 Acetaminophen (Tylenol Tab) 650 mg Q4H PRN PO MILD PAIN LEVEL 1-3; Start at 18:30 Atorvastatin Calcium (Lipitor) 20 mg QHS PO Last administered on 11/27/16t 21: 02; Admin Dose 20 MG; Start 11/27/16 at 21:00 Bisacodyl (Dulcolax) 10 mg Q2D PRN PO CONSTIPATION; Start 11/27/16 at 18:30 Cholecalciferol (Vitamin D) 1,000 unit QAM PO Last administered on 11/28/16 09 :43; Admin Dose 1,000 UNIT; Start 11/28/16 at 09:00 Divalproex Sodium (Depakote Sprinkle) 500 mg BID PO Last administered on 09:43; Admin Dose 500 MG; Start 11/27/16 at 21:00 Gabapentin (Neurontin) 100 mg TID PO Last administered on 11/28/16 13:06; Admin Dose 100 MG; Start 11/27/16 at 21:00 Magnesium Hydroxide (Milk Of Mag) 30 ml QHS PO Last administered on 11/27/16 21:02; Admin Dose 30 ML; Start 11/27/16 at 21:00 Oxcarbazepine (Trileptal) 300 mg BID PO Last administered on 11/28/16 09:43; Admin Dose 300 MG; Start 11/27/16 at 21:00 Propranolol HCl (Inderal) 10 mg TID PO Last administered on 11/28/16 13:07; Admin Dose 10 MG; Start 11/27/16 at 21:00 Sodium Biphosphate/ Sodium Phosphate (Fleet Enema Pediatric) 66.6 ml DAILY PRN [place] CONSTIPATION; Start 11/27/16 at 18:30 Magnesium Oxide (Mag-Ox 400) 400 mg BID PO Last administered on 11/28/16 09:42 ; Admin Dose 400 MG; Start 11/27/16 at 21:00 Fish Oil (Fish Oil) 1,000 mg DAILY PO ; Start 11/27/16 at 20:00 Multivit/Ca Carb/ B Cmplx/FA/Prenat (Mitali-Uma) 1 tab DAILY PO Last administered on 11/28/16 09:42; Admin Dose 1 TAB; Start 11/28/16 at 09:00 Miscellaneous Information (*Order Clarification Bulletin) FLEETS ENEMA...PT US... Q8H XX ; Start 11/27/16 at 20:00 Sodium Biphosphate/ Sodium Phosphate 133 ml 133 ml DAILY PRN [place] CONSTIPATION; Start 11/27/16 at 21:30 Ceftriaxone Sodium 50 ml @ 100 mls/hr Q24H IVPB Last administered on 00:37; Admin Dose 100 MLS/HR; Start 11/28/16 at 00:30 Sodium Chloride (NS) 1,000 ml @ 60 mls/hr [id number] IV Last administered on 11/28 00:38; Admin Dose 60 MLS/HR; Start 11/28/16 at 00:30 Pantoprazole (Protonix Tab) 40 mg DAILY@06 PO ; Start 11/29/16 at 06:00 JALIL GLASS Nov 28, 2016 17:51
[2016-11-28] MEDS ORDERED: NA PHOSPHATE/BIPHOS 133 ML ENEMA PR PRN (21:00)
[2016-11-28] MEDS: MAGNESIUM HYDROXIDE 30ML CUP PO SCH (21:06)
[2016-11-28] MEDS: ATORVASTATIN 20 MG TAB PO SCH (21:09)
--- NOTE | 2016-11-28 21:22 | PN ---
Date/Time of Note Date/Time of Note DATE: 11/28/16 TIME: 21:20 Assessment/Plan VTE Prophylaxis VTE Prophylaxis Intervention: other Lines/Catheters IV Catheter Type (from [facility]): Peripheral IV Urinary Cath still in place: No Assessment/Plan Chief Complaint/Hosp Course ams hyperkalemia BETTER ashd hx depression dehydration SEPSIS W BACTEREMIA hx of 1. Acute hypoxic respiratory failure status post choking episode, status post intubation, extubation. 2. Aspiration pneumonia. 3. Hypoxic respiratory failure. 4. Seizure disorder. 5. First-degree heart block. 6. Thrombocytopenia. plan per order ANTIBIOTIC Problems: Subjective 24 Hr Interval Summary Respiratory: no complaints Cardiovascular: no complaints Exam/Review of Systems Vital Signs Vitals Vital Signs Date Time Temp Pulse Resp B/P Pulse Ox O2 Delivery O2 Flow Rate FiO2 11/28/16 20:15 60 11/28/16 20:00 98.1 16 127/61 100 11/28/16 08:40 Nasal Cannula 2.0 Intake and Output 11/27/16 11/27/16 11/28/16 15:00 23:00 07:00 Intake Total 360 ml 700 ml Balance 360 ml 700 ml Exam Neck: supple Respiratory: clear to auscultation Cardiovascular: regular rate and rhythm Gastrointestinal: soft Musculoskeletal: nl extremities to inspection Extremities: normal pulses Results Result Diagram: 11/28/16 0700 11/28/16 0700 Results 24 hrs Laboratory Tests Test 11/28/16 07:00 11/28/16 08:10 11/28/16 11:50 11/28/16 17:41 White Blood Count 6.6 # Red Blood Count 3.58 L Hemoglobin 11.9 L Hematocrit 34.0 L Mean Corpuscular Volume 95.0 Mean Corpuscular Hemoglobin 33.2 H Mean Corpuscular Hemoglobin Concent 35.0 Red Cell Distribution Width 11.3 L Platelet Count 85 #L Mean Platelet Volume 12.6 H Neutrophils % 54.7 Lymphocytes % 32.3 Monocytes % 9.7 Eosinophils % 2.6 Basophils % 0.5 Nucleated Red Blood Cells % 0.0 Neutrophils # 3.6 Lymphocytes # 2.1 Monocytes # 0.6 Eosinophils # 0.2 Basophils # 0.0 Nucleated Red Blood Cells # 0.0 Sodium Level 136 Potassium Level 4.2 Chloride Level 104 Carbon Dioxide Level 26 Anion Gap 10 Blood Urea Nitrogen 17 # Creatinine 0.88 Glucose Level 114 Calcium Level 8.2 L Triglycerides Level 182 H Cholesterol Level 112 LDL Cholesterol, Calculated 48 HDL Cholesterol 28 L Cholesterol/HDL Ratio 4.0 Bedside Glucose 134 150 137 Test 11/28/16 21:04 Bedside Glucose 125 Medications Medications Current Medications Acetaminophen (Tylenol Liquid) 650 mg Q4H PRN PO PAIN AND OR ELEVATED TEMP; Start 11/27/16 at 07:00 Diagnostic Test (Pha) (Accu-Chek) 1 ea 02 XX ; Start 11/28/16 at 02:00 Miscellaneous Information 1 ea NOTE XX ; Start 11/27/16 at 15:00 Glucose (Glutose) 15 gm Q15M PRN PO DECREASED GLUCOSE; Start 11/27/16 at 15:00 Glucose (Glutose) 22.5 gm Q15M PRN PO DECREASED GLUCOSE; Start 11/27/16 at 15: 00 Dextrose (D50w Syringe) 25 ml Q15M PRN IV DECREASED GLUCOSE; Start 11/27/16 at 15:00 Dextrose (D50w Syringe) 50 ml Q15M PRN IV DECREASED GLUCOSE; Start 11/27/16 at 15:00 Glucagon (Glucagen) 1 mg Q15M PRN IM DECREASED GLUCOSE; Start 11/27/16 at 15:00 Glucose (Glutose) 15 gm Q15M PRN BUCCAL DECREASED GLUCOSE; Start 11/27/16 at 15 :00 Acetaminophen (Tylenol Tab) 650 mg Q4H PRN PO MILD PAIN LEVEL 1-3; Start at 18:30 Atorvastatin Calcium (Lipitor) 20 mg QHS PO Last administered on 11/28/16 21: 09; Admin Dose 20 MG; Start 11/27/16 at 21:00 Bisacodyl (Dulcolax) 10 mg Q2D PRN PO CONSTIPATION; Start 11/27/16 at 18:30 Cholecalciferol (Vitamin D) 1,000 unit QAM PO Last administered on 11/28/16 09 :43; Admin Dose 1,000 UNIT; Start 11/28/16 at 09:00 Divalproex Sodium (Depakote Sprinkle) 500 mg BID PO Last administered on 21:08; Admin Dose 500 MG; Start 11/27/16 at 21:00 Gabapentin (Neurontin) 100 mg TID PO Last administered on 11/28/16 21:09; Admin Dose 100 MG; Start 11/27/16 at 21:00 Magnesium Hydroxide (Milk Of Mag) 30 ml QHS PO Last administered on 11/28/16 21:06; Admin Dose 30 ML; Start 11/27/16 at 21:00 Oxcarbazepine (Trileptal) 300 mg BID PO Last administered on 11/28/16 21:09; Admin Dose 300 MG; Start 11/27/16 at 21:00 Propranolol HCl (Inderal) 10 mg TID PO Last administered on 11/28/16 21:09; Admin Dose 10 MG; Start 11/27/16 at 21:00 Magnesium Oxide (Mag-Ox 400) 400 mg BID PO Last administered on 11/28/16 21:09 ; Admin Dose 400 MG; Start 11/27/16 at 21:00 Fish Oil (Fish Oil) 1,000 mg DAILY PO ; Start 11/27/16 at 20:00 Multivit/Ca Carb/ B Cmplx/FA/Prenat 1 tab 1 tab DAILY PO Last administered on 09:42; Admin Dose 1 TAB; Start 11/28/16 at 09:00 Ceftriaxone Sodium 50 ml @ 100 mls/hr Q24H IVPB Last administered on 00:37; Admin Dose 100 MLS/HR; Start 11/28/16 at 00:30 Sodium Chloride (NS) 1,000 ml @ 60 mls/hr [id number] IV Last administered on 11/28 21:16; Admin Dose 60 MLS/HR; Start 11/28/16 at 00:30 Pantoprazole (Protonix Tab) 40 mg DAILY@06 PO ; Start 11/29/16 at 06:00 Sodium Biphosphate/ Sodium Phosphate (Fleet Enema) 133 ml DAILY PRN [place] CONSTIPATION; Start 11/28/16 at 21:00 Nicotine (Nicoderm 14 Mg/ 24hr) 1 patch DAILY TRANSDERM ; Start 11/29/16 at 09: 00 SALVATORE CALZADA MD Nov 28, 2016 21:21
[2016-11-29] VITALS (12 sets, daily range): BP systolic 105–144; BP diastolic 64–93; PULSE 60–71; RESP 18–20
[2016-11-29] MEDS: CEFTRIAXONE 1 GM/50 ML (PMX) 50 ML IVPB SCH (00:33)
[2016-11-29] MEDS: ACCU-CHEK XX SCH (02:52)
[2016-11-29] MEDS: PANTOPRAZOLE (EC) 40 MG TAB PO SCH (05:41)
[2016-11-29] MEDS: INSULIN ASPART [NOVOLOG] 3 ML PEN SC SCH ×4 (07:55→21:00)
[2016-11-29] MEDS: CHOLECALCIFEROL 1,000 UNIT TAB PO SCH (09:23)
[2016-11-29] MEDS: MULTIVIT/CA CARB/B CMPLX/FA TAB PO SCH (09:23)
[2016-11-29] MEDS: OXCARBAZEPINE 300 MG TAB PO SCH ×2 (09:23→21:29)
[2016-11-29] MEDS: MAGNESIUM OXIDE 400 MG TAB PO SCH ×2 (09:24→21:06)
[2016-11-29] MEDS: PROPRANOLOL 10 MG TAB PO SCH ×3 (09:24→21:06)
[2016-11-29] MEDS: GABAPENTIN 100 MG CAP PO SCH ×3 (09:25→21:05)
[2016-11-29] MEDS: FISH OIL 1,000 MG CAP PO SCH (09:25)
[2016-11-29] MEDS: NICOTINE (14 MG/24 HR) PATCH TRANSDERM SCH (09:25)
[2016-11-29] MEDS: DIVALPROEX SPRINKLE 125 MG CAP PO SCH ×2 (09:25→21:05)
--- NOTE | 2016-11-29 14:45 | PN ---
Date/Time of Note Date/Time of Note DATE: 11/29/16 TIME: 14:44 Assessment/Plan VTE Prophylaxis VTE Prophylaxis Intervention: ambulation, SCD's Lines/Catheters IV Catheter Type (from [facility]): Peripheral IV Urinary Cath still in place: No Assessment/Plan Chief Complaint/Hosp Course 1. Acute hypoxic respiratory failure status post choking episode, status post intubation, extubation. 2. Aspiration pneumonia. 3. Hypoxic respiratory failure. 4. Seizure disorder. 5. First-degree heart block. 6. Thrombocytopenia. Problems: Subjective 24 Hr Interval Summary ENT: pain (throat) Exam/Review of Systems Vital Signs Vitals Vital Signs Date Time Temp Pulse Resp B/P Pulse Ox O2 Delivery O2 Flow Rate FiO2 11/29/16 12:47 60 11/29/16 11:19 98.5 18 144/93 99 11/29/16 09:33 Nasal Cannula 2.0 Intake and Output 11/28/16 11/28/16 11/29/16 15:00 23:00 07:00 Intake Total 1720 ml 840 ml Balance 1720 ml 840 ml Exam Psych: no complaints (when on meds) Head: normocephalic Neck: supple Respiratory: clear to auscultation, diminished breath sounds Cardiovascular: regular rate and rhythm Results Result Diagram: 11/28/16 0700 11/28/16 0700 Results 24 hrs Laboratory Tests Test 11/28/16 17:41 11/28/16 21:04 11/29/16 07:48 11/29/16 11:57 Bedside Glucose 137 125 111 147 Medications Medications Current Medications Acetaminophen (Tylenol Liquid) 650 mg Q4H PRN PO PAIN AND OR ELEVATED TEMP; Start 11/27/16 at 07:00 Diagnostic Test (Pha) (Accu-Chek) 1 ea 02 XX Last administered on 11/29/16t 02: 52; Admin Dose 1 EA; Start 11/28/16 at 02:00 Miscellaneous Information 1 ea NOTE XX ; Start 11/27/16 at 15:00 Glucose (Glutose) 15 gm Q15M PRN PO DECREASED GLUCOSE; Start 11/27/16 at 15:00 Glucose (Glutose) 22.5 gm Q15M PRN PO DECREASED GLUCOSE; Start 11/27/16 at 15: 00 Dextrose (D50w Syringe) 25 ml Q15M PRN IV DECREASED GLUCOSE; Start 11/27/16 at 15:00 Dextrose (D50w Syringe) 50 ml Q15M PRN IV DECREASED GLUCOSE; Start 11/27/16 at 15:00 Glucagon (Glucagen) 1 mg Q15M PRN IM DECREASED GLUCOSE; Start 11/27/16 at 15:00 Glucose (Glutose) 15 gm Q15M PRN BUCCAL DECREASED GLUCOSE; Start 11/27/16 at 15 :00 Acetaminophen (Tylenol Tab) 650 mg Q4H PRN PO MILD PAIN LEVEL 1-3; Start at 18:30 Atorvastatin Calcium (Lipitor) 20 mg QHS PO Last administered on 11/28/16 21: 09; Admin Dose 20 MG; Start 11/27/16 at 21:00 Bisacodyl (Dulcolax) 10 mg Q2D PRN PO CONSTIPATION; Start 11/27/16 at 18:30 Cholecalciferol (Vitamin D) 1,000 unit QAM PO Last administered on 11/29/16 09 :23; Admin Dose 1,000 UNIT; Start 11/28/16 at 09:00 Divalproex Sodium (Depakote Sprinkle) 500 mg BID PO Last administered on 09:25; Admin Dose 500 MG; Start 11/27/16 at 21:00 Gabapentin (Neurontin) 100 mg TID PO Last administered on 11/29/16 12:00; Admin Dose 100 MG; Start 11/27/16 at 21:00 Magnesium Hydroxide (Milk Of Mag) 30 ml QHS PO Last administered on 11/28/16 21:06; Admin Dose 30 ML; Start 11/27/16 at 21:00 Oxcarbazepine (Trileptal) 300 mg BID PO Last administered on 11/29/16 09:23; Admin Dose 300 MG; Start 11/27/16 at 21:00 Propranolol HCl (Inderal) 10 mg TID PO Last administered on 11/29/16 12:00; Admin Dose 10 MG; Start 11/27/16 at 21:00 Magnesium Oxide (Mag-Ox 400) 400 mg BID PO Last administered on 11/29/16 09:24 ; Admin Dose 400 MG; Start 11/27/16 at 21:00 Fish Oil (Fish Oil) 1,000 mg DAILY PO Last administered on 11/29/16 09:25; Admin Dose 1,000 MG; Start 11/27/16 at 20:00 Multivit/Ca Carb/ B Cmplx/FA/Prenat 1 tab 1 tab DAILY PO Last administered on 09:23; Admin Dose 1 TAB; Start 11/28/16 at 09:00 Ceftriaxone Sodium 50 ml @ 100 mls/hr Q24H IVPB Last administered on 00:33; Admin Dose 100 MLS/HR; Start 11/28/16 at 00:30 Sodium Chloride (NS) 1,000 ml @ 60 mls/hr [id number] IV Last administered on 11/28 21:16; Admin Dose 60 MLS/HR; Start 11/28/16 at 00:30 Pantoprazole (Protonix Tab) 40 mg DAILY@06 PO Last administered on 11/29/16 05 :41; Admin Dose 40 MG; Start 11/29/16 at 06:00 Sodium Biphosphate/ Sodium Phosphate (Fleet Enema) 133 ml DAILY PRN [place] CONSTIPATION; Start 11/28/16 at 21:00 Nicotine (Nicoderm 14 Mg/ 24hr) 1 patch DAILY TRANSDERM Last administered on 09:25; Admin Dose 1 PATCH; Start 11/29/16 at 09:00 MICHELE AMANDA Nov 29, 2016 14:45
--- NOTE | 2016-11-29 14:59 | CONS ---
Date/Time of Note Date/Time of Note DATE: 11/29/16 TIME: 14:56 Assessment/Plan Assessment/Plan Chief Complaint/Hosp Course IMP: 1.ABNL ecg-diffuse NSSTWA's. Negative trop x 3 since admit 2.HTN-reasonable 3.HL 4.Seizure d/o 5.DM 6.Encephalopathy Rec: -Tele -serial ecg's -patient s/p echo 09/16 with NL EF -Continue propranolol -Follow BS closely -Follow resp status closely Problems: Consultation Date/Type/Reason Admit Date/Time Nov 27, 2016 at 01:56 Initial Consult Date 11/27/16 Type of Consultation: cardiology Reason for Consultation abnl ecg/HTN Referring Provider: SALVATORE CALZADA MD Exam/Review of Systems Vital Signs Vitals Vital Signs Date Time Temp Pulse Resp B/P Pulse Ox O2 Delivery O2 Flow Rate FiO2 11/29/16 12:47 60 11/29/16 11:19 98.5 18 144/93 99 11/29/16 09:33 Nasal Cannula 2.0 Intake and Output 11/28/16 11/28/16 11/29/16 15:00 23:00 07:00 Intake Total 1720 ml 840 ml Balance 1720 ml 840 ml Exam Review of Systems: CONSTITUTIONAL: No fevers, chills. PULMONARY: No sob CARDIOVASCULAR: No chest pain/palpitations GASTROINTESTINAL: No nausea/vomiting. GENITOURINARY: No hematuria/dysuria. MUSCULOSKELETAL: No myagias/arthalgias. PSYCHIATRIC: The patient denies depression. NEUROLOGIC: lethargic Constitutional: other (sleeping) Psych: no complaints Head: normocephalic Neck: jvd (8-9 cm water), supple Respiratory: diminished breath sounds (at bases/B) Cardiovascular: regular rate and rhythm Gastrointestinal: non-tender, soft Musculoskeletal: muscle weakness (generalized weakness) Extremities: edema (none) Neurological: lethargic Results Result Diagram: 11/28/16 0700 11/28/16 0700 Results 24 hrs Laboratory Tests Test 11/28/16 17:41 11/28/16 21:04 11/29/16 07:48 11/29/16 11:57 Bedside Glucose 137 125 111 147 Medications Medications Current Medications Acetaminophen (Tylenol Liquid) 650 mg Q4H PRN PO PAIN AND OR ELEVATED TEMP; Start 11/27/16 at 07:00 Diagnostic Test (Pha) (Accu-Chek) 1 ea 02 XX Last administered on 11/29/16 02: 52; Admin Dose 1 EA; Start 11/28/16 at 02:00 Miscellaneous Information 1 ea NOTE XX ; Start 11/27/16 at 15:00 Glucose (Glutose) 15 gm Q15M PRN PO DECREASED GLUCOSE; Start 11/27/16 at 15:00 Glucose (Glutose) 22.5 gm Q15M PRN PO DECREASED GLUCOSE; Start 11/27/16 at 15: 00 Dextrose (D50w Syringe) 25 ml Q15M PRN IV DECREASED GLUCOSE; Start 11/27/16 at 15:00 Dextrose (D50w Syringe) 50 ml Q15M PRN IV DECREASED GLUCOSE; Start 11/27/16 at 15:00 Glucagon (Glucagen) 1 mg Q15M PRN IM DECREASED GLUCOSE; Start 11/27/16 at 15:00 Glucose (Glutose) 15 gm Q15M PRN BUCCAL DECREASED GLUCOSE; Start 11/27/16 at 15 :00 Acetaminophen (Tylenol Tab) 650 mg Q4H PRN PO MILD PAIN LEVEL 1-3; Start at 18:30 Atorvastatin Calcium (Lipitor) 20 mg QHS PO Last administered on 11/28/16 21: 09; Admin Dose 20 MG; Start 11/27/16 at 21:00 Bisacodyl (Dulcolax) 10 mg Q2D PRN PO CONSTIPATION; Start 11/27/16 at 18:30 Cholecalciferol (Vitamin D) 1,000 unit QAM PO Last administered on 11/29/16 09 :23; Admin Dose 1,000 UNIT; Start 11/28/16 at 09:00 Divalproex Sodium (Depakote Sprinkle) 500 mg BID PO Last administered on 09:25; Admin Dose 500 MG; Start 11/27/16 at 21:00 Gabapentin (Neurontin) 100 mg TID PO Last administered on 11/29/16 12:00; Admin Dose 100 MG; Start 11/27/16 at 21:00 Magnesium Hydroxide (Milk Of Mag) 30 ml QHS PO Last administered on 11/28/16 21:06; Admin Dose 30 ML; Start 11/27/16 at 21:00 Oxcarbazepine (Trileptal) 300 mg BID PO Last administered on 11/29/16 09:23; Admin Dose 300 MG; Start 11/27/16 at 21:00 Propranolol HCl (Inderal) 10 mg TID PO Last administered on 11/29/16 12:00; Admin Dose 10 MG; Start 11/27/16 at 21:00 Magnesium Oxide (Mag-Ox 400) 400 mg BID PO Last administered on 11/29/16 09:24 ; Admin Dose 400 MG; Start 11/27/16 at 21:00 Fish Oil (Fish Oil) 1,000 mg DAILY PO Last administered on 11/29/16 09:25; Admin Dose 1,000 MG; Start 11/27/16 at 20:00 Multivit/Ca Carb/ B Cmplx/FA/Prenat 1 tab 1 tab DAILY PO Last administered on 09:23; Admin Dose 1 TAB; Start 11/28/16 at 09:00 Ceftriaxone Sodium 50 ml @ 100 mls/hr Q24H IVPB Last administered on 00:33; Admin Dose 100 MLS/HR; Start 11/28/16 at 00:30 Sodium Chloride (NS) 1,000 ml @ 60 mls/hr [id number] IV Last administered on 11/28 21:16; Admin Dose 60 MLS/HR; Start 11/28/16 at 00:30 Pantoprazole (Protonix Tab) 40 mg DAILY@06 PO Last administered on 11/29/16 05 :41; Admin Dose 40 MG; Start 11/29/16 at 06:00 Sodium Biphosphate/ Sodium Phosphate (Fleet Enema) 133 ml DAILY PRN [place] CONSTIPATION; Start 11/28/16 at 21:00 Nicotine (Nicoderm 14 Mg/ 24hr) 1 patch DAILY TRANSDERM Last administered on 09:25; Admin Dose 1 PATCH; Start 11/29/16 at 09:00 JALIL GLASS Nov 29, 2016 14:59
[2016-11-29] MEDS: SOD CHLORIDE 0.9% 1,000 ML IV SCH (16:31)
[2016-11-29] MEDS: ATORVASTATIN 20 MG TAB PO SCH (21:05)
[2016-11-29] MEDS: MAGNESIUM HYDROXIDE 30ML CUP PO SCH (21:06)
[2016-11-29] MEDS: HYDROCODONE/APAP (5/325) TAB PO PRN (22:51)
[2016-11-30] VITALS (10 sets, daily range): BP systolic 125–139; BP diastolic 59–85; PULSE 58–70; RESP 17–20
[2016-11-30] MEDS: CEFTRIAXONE 1 GM/50 ML (PMX) 50 ML IVPB SCH (01:12)
[2016-11-30] MEDS: ACCU-CHEK XX SCH (02:00)
[2016-11-30] MEDS: PANTOPRAZOLE (EC) 40 MG TAB PO SCH (06:09)
[2016-11-30 07:05] LABS: ABNORMAL IP MESSAGE 1; BASOPHILS % 0.7 % (0.0-2.0); EOSINOPHILS # 0.2 10^3/ul (0.0-0.5); EOSINOPHILS % 3.3 % (0.0-7.0); HEMATOCRIT 37.9 % (42.0-52.0); HEMOGLOBIN 12.8 g/dl (14.0-18.0); LYMPHOCYTES # 2.6 10^3/ul (0.8-2.9); LYMPHOCYTES % 43.2 % (15.0-51.0); MEAN CORPUSCULAR HGB CONC 33.8 g/dl (32.0-37.0); MEAN CORPUSCULAR VOLUME 94.8 fl (82.0-101.0); MEAN PLATELET VOLUME 12.3 fl (7.4-10.4); MONOCYTE # 0.5 10^3/ul (0.3-0.9); MONOCYTES % 7.9 % (0.0-11.0); NEUTROPHIL # 2.7 10^3/ul (1.6-7.5); NEUTROPHILS % 44.7 % (39.0-77.0); PLATELET COUNT 90 10^3/UL (140-415); RED CELL DISTRIBUTION WIDTH 11.4 % (11.5-14.5)
[2016-11-30] MEDS: INSULIN ASPART [NOVOLOG] 3 ML PEN SC SCH ×4 (07:55→21:00)
[2016-11-30 08:19] LABS: CALCIUM 9.1 mg/dl (8.4-10.2); CREATININE 0.89 mg/dl (0.61-1.24); POTASSIUM 4.8 mmol/L (3.5-5.1)
[2016-11-30] MEDS: OXCARBAZEPINE 300 MG TAB PO SCH ×2 (08:43→21:06)
[2016-11-30] MEDS: DIVALPROEX SPRINKLE 125 MG CAP PO SCH ×2 (08:43→21:07)
[2016-11-30] MEDS: FISH OIL 1,000 MG CAP PO SCH (08:43)
[2016-11-30] MEDS: PROPRANOLOL 10 MG TAB PO SCH ×3 (08:43→21:09)
[2016-11-30] MEDS: MULTIVIT/CA CARB/B CMPLX/FA TAB PO SCH (08:43)
[2016-11-30] MEDS: MAGNESIUM OXIDE 400 MG TAB PO SCH ×2 (08:43→21:06)
[2016-11-30] MEDS: NICOTINE (14 MG/24 HR) PATCH TRANSDERM SCH (08:43)
[2016-11-30] MEDS: CHOLECALCIFEROL 1,000 UNIT TAB PO SCH (08:43)
[2016-11-30] MEDS: GABAPENTIN 100 MG CAP PO SCH ×3 (08:43→21:07)
--- NOTE | 2016-11-30 13:57 | PN ---
Date/Time of Note Date/Time of Note DATE: 11/30/16 TIME: 13:54 Assessment/Plan VTE Prophylaxis VTE Prophylaxis Intervention: SCD's Lines/Catheters IV [facility]ter Type (from [facility]): Peripheral IV Urinary Cath still in place: No Assessment/Plan Chief Complaint/Hosp Course 1. Acute hypoxic respiratory failure status post choking episode, status post intubation, extubation. 2. Aspiration pneumonia. 3. Hypoxic respiratory failure. 4. Seizure disorder. 5. First-degree heart block. 6. Thrombocytopenia. Problems: Assessment/Plan 1. Continue current regime unchanged Subjective 24 Hr Interval Summary Constitutional: no complaints (pt is not coherent and slow) Exam/Review of Systems Vital Signs Vitals Vital Signs Date Time Temp Pulse Resp B/P Pulse Ox O2 Delivery O2 Flow Rate FiO2 11/30/16 12:00 58 11/30/16 11:59 98.2 18 128/85 97 11/30/16 08:00 Nasal Cannula 2.0 Intake and Output 11/29/16 11/29/16 11/30/16 15:00 23:00 07:00 Intake Total 600 ml 1150 ml Output Total 850 ml Balance 600 ml 300 ml Exam Constitutional: other Head: atraumatic, normocephalic Neck: supple Respiratory: clear to auscultation Cardiovascular: regular rate and rhythm Results Result Diagram: 11/30/16 0625 11/30/16 0525 Results 24 hrs Laboratory Tests Test 11/29/16 17:28 11/29/16 21:28 11/30/16 05:25 11/30/16 06:25 Bedside Glucose 109 162 Sodium Level 141 Potassium Level 4.8 Chloride Level 104 Carbon Dioxide Level 22 Anion Gap 20 #H Blood Urea Nitrogen 21 H Creatinine 0.89 Glucose Level 84 Calcium Level 9.1 White Blood Count 6.0 Red Blood Count 4.00 L Hemoglobin 12.8 L Hematocrit 37.9 L Mean Corpuscular Volume 94.8 Mean Corpuscular Hemoglobin 32.0 Mean Corpuscular Hemoglobin Concent 33.8 Red Cell Distribution Width 11.4 L Platelet Count 90 L Mean Platelet Volume 12.3 H Neutrophils % 44.7 Lymphocytes % 43.2 Monocytes % 7.9 Eosinophils % 3.3 Basophils % 0.7 Nucleated Red Blood Cells % 0.0 Neutrophils # 2.7 Lymphocytes # 2.6 Monocytes # 0.5 Eosinophils # 0.2 Basophils # 0.0 Nucleated Red Blood Cells # 0.0 Test 11/30/16 08:38 11/30/16 12:25 Bedside Glucose 111 125 Medications Medications Current Medications Acetaminophen (Tylenol Liquid) 650 mg Q4H PRN PO PAIN AND OR ELEVATED TEMP; Start 11/27/16 at 07:00 Diagnostic Test (Pha) (Accu-Chek) 1 ea 02 XX Last administered on 11/29/16 02: 52; Admin Dose 1 EA; Start 11/28/16 at 02:00 Miscellaneous Information 1 ea NOTE XX ; Start 11/27/16 at 15:00 Glucose (Glutose) 15 gm Q15M PRN PO DECREASED GLUCOSE; Start 11/27/16 at 15:00 Glucose (Glutose) 22.5 gm Q15M PRN PO DECREASED GLUCOSE; Start 11/27/16 at 15: 00 Dextrose (D50w Syringe) 25 ml Q15M PRN IV DECREASED GLUCOSE; Start 11/27/16 at 15:00 Dextrose (D50w Syringe) 50 ml Q15M PRN IV DECREASED GLUCOSE; Start 11/27/16 at 15:00 Glucagon (Glucagen) 1 mg Q15M PRN IM DECREASED GLUCOSE; Start 11/27/16 at 15:00 Glucose (Glutose) 15 gm Q15M PRN BUCCAL DECREASED GLUCOSE; Start 11/27/16 at 15 :00 Acetaminophen (Tylenol Tab) 650 mg Q4H PRN PO MILD PAIN LEVEL 1-3; Start at 18:30 Atorvastatin Calcium (Lipitor) 20 mg QHS PO Last administered on 11/29/16 21: 05; Admin Dose 20 MG; Start 11/27/16 at 21:00 Bisacodyl (Dulcolax) 10 mg Q2D PRN PO CONSTIPATION; Start 11/27/16 at 18:30 Cholecalciferol (Vitamin D) 1,000 unit QAM PO Last administered on 11/30/16 08: 43; Admin Dose 1,000 UNIT; Start 11/28/16 at 09:00 Divalproex Sodium (Depakote Sprinkle) 500 mg BID PO Last administered on 08:43; Admin Dose 500 MG; Start 11/27/16 at 21:00 Gabapentin (Neurontin) 100 mg TID PO Last administered on 11/30/16 08:43; Admin Dose 100 MG; Start 11/27/16 at 21:00 Magnesium Hydroxide (Milk Of Mag) 30 ml QHS PO Last administered on 11/29/16 21:06; Admin Dose 30 ML; Start 11/27/16 at 21:00 Oxcarbazepine (Trileptal) 300 mg BID PO Last administered on 11/30/16 08:43; Admin Dose 300 MG; Start 11/27/16 at 21:00 Propranolol HCl (Inderal) 10 mg TID PO Last administered on 11/30/16 08:43; Admin Dose 10 MG; Start 11/27/16 at 21:00 Magnesium Oxide (Mag-Ox 400) 400 mg BID PO Last administered on 11/30/16 08:43 ; Admin Dose 400 MG; Start 11/27/16 at 21:00 Fish Oil (Fish Oil) 1,000 mg DAILY PO Last administered on 11/30/16 08:43; Admin Dose 1,000 MG; Start 11/27/16 at 20:00 Multivit/Ca Carb/ B Cmplx/FA/Prenat 1 tab 1 tab DAILY PO Last administered on 08:43; Admin Dose 1 TAB; Start 11/28/16 at 09:00 Ceftriaxone Sodium 50 ml @ 100 mls/hr Q24H IVPB Last administered on 11/30/16 01:12; Admin Dose 100 MLS/HR; Start 11/28/16 at 00:30 Sodium Chloride (NS) 1,000 ml @ 60 mls/hr [id number] IV Last administered on 11/29 16:31; Admin Dose 60 MLS/HR; Start 11/28/16 at 00:30 Pantoprazole (Protonix Tab) 40 mg DAILY@06 PO Last administered on 11/30/16 06: 09; Admin Dose 40 MG; Start 11/29/16 at 06:00 Sodium Biphosphate/ Sodium Phosphate (Fleet Enema) 133 ml DAILY PRN [place] CONSTIPATION; Start 11/28/16 at 21:00 Nicotine (Nicoderm 14 Mg/ 24hr) 1 patch DAILY TRANSDERM Last administered on 08:43; Admin Dose 1 PATCH; Start 11/29/16 at 09:00 Acetaminophen/ Hydrocodone Bitart ([place] (5/325)) 1 tab Q6H PRN PO PAIN Last administered on 11/29/16t 22:51; Admin Dose 1 TAB; Start 11/29/16 at 17:30 MICHELE AMANDA Nov 30, 2016 13:57
--- NOTE | 2016-11-30 14:46 | CONS ---
Date/Time of Note Date/Time of Note DATE: 11/30/16 TIME: 14:44 Assessment/Plan Assessment/Plan Additional Assessment/Plan 1.ABNL ecg-diffuse NSSTWA's. Negative trop x 3 since admit - stable - no intervention planned now 2.HTN-reasonable - well rx 3.HL 4.Seizure d/o - no new episodes now 5.DM - on meds, keep euglycemic 6.Encephalopathy - stable Consultation Date/Type/Reason Admit Date/Time Nov 27, 2016 at 01:56 Initial Consult Date 11/27/16 Type of Consultation: cardiology Referring Provider: SALVATORE CALZADA MD 24 HR Interval Summary Free Text/Dictation NO acute events - no ectopy on tele ROS: No fever, no chills, no nausea, no vomiting, no diarrhea/constipation No recent weight changes No chest pain, no PND, no orthopnea No dizziness, blurred vision No thirst, no heat or cold intolerance Exam/Review of Systems Vital Signs Vitals Vital Signs Date Time Temp Pulse Resp B/P Pulse Ox O2 Delivery O2 Flow Rate FiO2 11/30/16 12:00 58 11/30/16 11:59 98.2 18 128/85 97 11/30/16 08:00 Nasal Cannula 2.0 Intake and Output 11/29/16 11/29/16 11/30/16 15:00 23:00 07:00 Intake Total 600 ml 1150 ml Output Total 850 ml Balance 600 ml 300 ml Exam General: WN/WD/NAD, AOx 1-2 HEENT: Unicetric/atraumatic/EOMI (does not follow commands) NECK: JVD elevated, no thyromegaly Lymph: no lymphadenopathy HEART: regular with no S3, II/ systolic murmur at apex LUNGS: Coarse sounds ABD: soft, NT, ND, +BS : Intact Neuro: non focal SKIN: chronic changes EXT: trace edema Results Result Diagram: 11/30/16 0625 11/30/16 0525 Results 24 hrs Laboratory Tests Test 11/29/16 17:28 11/29/16 21:28 11/30/16 05:25 11/30/16 06:25 Bedside Glucose 109 162 Sodium Level 141 Potassium Level 4.8 Chloride Level 104 Carbon Dioxide Level 22 Anion Gap 20 #H Blood Urea Nitrogen 21 H Creatinine 0.89 Glucose Level 84 Calcium Level 9.1 White Blood Count 6.0 Red Blood Count 4.00 L Hemoglobin 12.8 L Hematocrit 37.9 L Mean Corpuscular Volume 94.8 Mean Corpuscular Hemoglobin 32.0 Mean Corpuscular Hemoglobin Concent 33.8 Red Cell Distribution Width 11.4 L Platelet Count 90 L Mean Platelet Volume 12.3 H Neutrophils % 44.7 Lymphocytes % 43.2 Monocytes % 7.9 Eosinophils % 3.3 Basophils % 0.7 Nucleated Red Blood Cells % 0.0 Neutrophils # 2.7 Lymphocytes # 2.6 Monocytes # 0.5 Eosinophils # 0.2 Basophils # 0.0 Nucleated Red Blood Cells # 0.0 Test 11/30/16 08:38 11/30/16 12:25 Bedside Glucose 111 125 Medications Medications Current Medications Acetaminophen (Tylenol Liquid) 650 mg Q4H PRN PO PAIN AND OR ELEVATED TEMP; Start 11/27/16 at 07:00 Diagnostic Test (Pha) (Accu-Chek) 1 ea 02 XX Last administered on 11/29/16 02: 52; Admin Dose 1 EA; Start 11/28/16 at 02:00 Miscellaneous Information 1 ea NOTE XX ; Start 11/27/16 at 15:00 Glucose (Glutose) 15 gm Q15M PRN PO DECREASED GLUCOSE; Start 11/27/16 at 15:00 Glucose (Glutose) 22.5 gm Q15M PRN PO DECREASED GLUCOSE; Start 11/27/16 at 15: 00 Dextrose (D50w Syringe) 25 ml Q15M PRN IV DECREASED GLUCOSE; Start 11/27/16 at 15:00 Dextrose (D50w Syringe) 50 ml Q15M PRN IV DECREASED GLUCOSE; Start 11/27/16 at 15:00 Glucagon (Glucagen) 1 mg Q15M PRN IM DECREASED GLUCOSE; Start 11/27/16 at 15:00 Glucose (Glutose) 15 gm Q15M PRN BUCCAL DECREASED GLUCOSE; Start 11/27/16 at 15 :00 Acetaminophen (Tylenol Tab) 650 mg Q4H PRN PO MILD PAIN LEVEL 1-3; Start at 18:30 Atorvastatin Calcium (Lipitor) 20 mg QHS PO Last administered on 11/29/16 21: 05; Admin Dose 20 MG; Start 11/27/16 at 21:00 Bisacodyl (Dulcolax) 10 mg Q2D PRN PO CONSTIPATION; Start 11/27/16 at 18:30 Cholecalciferol (Vitamin D) 1,000 unit QAM PO Last administered on 11/30/16 08: 43; Admin Dose 1,000 UNIT; Start 11/28/16 at 09:00 Divalproex Sodium (Depakote Sprinkle) 500 mg BID PO Last administered on 08:43; Admin Dose 500 MG; Start 11/27/16 at 21:00 Gabapentin (Neurontin) 100 mg TID PO Last administered on 11/30/16 08:43; Admin Dose 100 MG; Start 11/27/16 at 21:00 Magnesium Hydroxide (Milk Of Mag) 30 ml QHS PO Last administered on 11/29/16 21:06; Admin Dose 30 ML; Start 11/27/16 at 21:00 Oxcarbazepine (Trileptal) 300 mg BID PO Last administered on 11/30/16 08:43; Admin Dose 300 MG; Start 11/27/16 at 21:00 Propranolol HCl (Inderal) 10 mg TID PO Last administered on 11/30/16 08:43; Admin Dose 10 MG; Start 11/27/16 at 21:00 Magnesium Oxide (Mag-Ox 400) 400 mg BID PO Last administered on 11/30/16 08:43 ; Admin Dose 400 MG; Start 11/27/16 at 21:00 Fish Oil (Fish Oil) 1,000 mg DAILY PO Last administered on 11/30/16 08:43; Admin Dose 1,000 MG; Start 11/27/16 at 20:00 Multivit/Ca Carb/ B Cmplx/FA/Prenat 1 tab 1 tab DAILY PO Last administered on 08:43; Admin Dose 1 TAB; Start 11/28/16 at 09:00 Ceftriaxone Sodium 50 ml @ 100 mls/hr Q24H IVPB Last administered on 11/30/16 01:12; Admin Dose 100 MLS/HR; Start 11/28/16 at 00:30 Sodium Chloride (NS) 1,000 ml @ 60 mls/hr [id number] IV Last administered on 11/29 16:31; Admin Dose 60 MLS/HR; Start 11/28/16 at 00:30 Pantoprazole (Protonix Tab) 40 mg DAILY@06 PO Last administered on 11/30/16 06: 09; Admin Dose 40 MG; Start 11/29/16 at 06:00 Sodium Biphosphate/ Sodium Phosphate (Fleet Enema) 133 ml DAILY PRN [place] CONSTIPATION; Start 11/28/16 at 21:00 Nicotine (Nicoderm 14 Mg/ 24hr) 1 patch DAILY TRANSDERM Last administered on 08:43; Admin Dose 1 PATCH; Start 11/29/16 at 09:00 Acetaminophen/ Hydrocodone Bitart ([place] (5/325)) 1 tab Q6H PRN PO PAIN Last administered on 11/29/16 22:51; Admin Dose 1 TAB; Start 11/29/16 at 17:30 SANCHO GARCIA MD Nov 30, 2016 14:45
[2016-11-30] MEDS: ATORVASTATIN 20 MG TAB PO SCH (21:06)
[2016-11-30] MEDS: MAGNESIUM HYDROXIDE 30ML CUP PO SCH (21:06)
[2016-11-30] MEDS: SOD CHLORIDE 0.9% 1,000 ML IV SCH (21:08)
[2016-11-30] MEDS: HYDROCODONE/APAP (5/325) TAB PO PRN (23:01)
[2016-12-01] VITALS (16 sets, daily range): BP systolic 103–145; BP diastolic 50–84; PULSE 60–77; RESP 16–20
[2016-12-01] MEDS: CEFTRIAXONE 1 GM/50 ML (PMX) 50 ML IVPB SCH (00:25)
[2016-12-01] MEDS: ACCU-CHEK XX SCH (00:25)
[2016-12-01] MEDS: PANTOPRAZOLE (EC) 40 MG TAB PO SCH (06:27)
[2016-12-01] MEDS: INSULIN ASPART [NOVOLOG] 3 ML PEN SC SCH ×4 (07:55→20:35)
[2016-12-01] MEDS: PROPRANOLOL 10 MG TAB PO SCH ×3 (09:08→20:31)
[2016-12-01] MEDS: MULTIVIT/CA CARB/B CMPLX/FA TAB PO SCH (09:08)
[2016-12-01] MEDS: FISH OIL 1,000 MG CAP PO SCH (09:08)
[2016-12-01] MEDS: MAGNESIUM OXIDE 400 MG TAB PO SCH ×2 (09:08→20:29)
[2016-12-01] MEDS: DIVALPROEX SPRINKLE 125 MG CAP PO SCH ×2 (09:08→20:29)
[2016-12-01] MEDS: CHOLECALCIFEROL 1,000 UNIT TAB PO SCH (09:08)
[2016-12-01] MEDS: OXCARBAZEPINE 300 MG TAB PO SCH ×2 (09:08→20:29)
[2016-12-01] MEDS: GABAPENTIN 100 MG CAP PO SCH ×3 (09:08→20:29)
[2016-12-01] MEDS: NICOTINE (14 MG/24 HR) PATCH TRANSDERM SCH (09:23)
[2016-12-01] MEDS: SOD CHLORIDE 0.9% 1,000 ML IV SCH (12:23)
--- NOTE | 2016-12-01 14:18 | CONS ---
Date/Time of Note Date/Time of Note DATE: 12/01/16 TIME: 14:17 Assessment/Plan Assessment/Plan Additional Assessment/Plan 1.ABNL ecg-diffuse NSSTWA's. Negative trop x 3 since admit - stable - no intervention planned now SINUS on tele, no ectopy noted 2.HTN-reasonable - well rx 3.HL 4.Seizure d/o - no new episodes now - no new episodes 5.DM - on meds, keep euglycemic 6.Encephalopathy - stable Consultation Date/Type/Reason Admit Date/Time Nov 27, 2016 at 01:56 Initial Consult Date 11/27/16 Type of Consultation: cardiology Referring Provider: SALVATORE CALZADA MD 24 HR Interval Summary Free Text/Dictation SINUS on tele, no ectopy noted ROS: No fever, no chills, no nausea, no vomiting, no diarrhea/constipation No recent weight changes No chest pain, no PND, no orthopnea No dizziness, blurred vision No thirst, no heat or cold intolerance (per nurse) Exam/Review of Systems Vital Signs Vitals Vital Signs Date Time Temp Pulse Resp B/P Pulse Ox O2 Delivery O2 Flow Rate FiO2 12/01/16 12:40 70 12/01/16 11:25 98.0 19 145/82 97 11/30/16 08:00 Nasal Cannula 2.0 Intake and Output 11/30/16 11/30/16 12/01/16 15:00 23:00 07:00 Intake Total 870 ml 1290 ml Output Total 900 ml 1450 ml Balance -30 ml -160 ml Exam General: WN/WD/NAD, AOx confused HEENT: Unicetric/atraumatic/EOMI (does not follow commands) NECK: JVD elevated, no thyromegaly Lymph: no lymphadenopathy HEART: regular with no S3, II/ systolic murmur at apex LUNGS: Coarse sounds ABD: soft, NT, ND, +BS : Intact Neuro: non focal SKIN: chronic changes EXT: trace edema Results Result Diagram: 11/30/16 0625 11/30/16 0525 Results 24 hrs Laboratory Tests Test 11/30/16 17:00 11/30/16 21:04 12/01/16 07:45 12/01/16 12:19 Bedside Glucose 152 159 104 129 Medications Medications Current Medications Acetaminophen (Tylenol Liquid) 650 mg Q4H PRN PO PAIN AND OR ELEVATED TEMP; Start 11/27/16 at 07:00 Diagnostic Test (Pha) (Accu-Chek) 1 ea 02 XX Last administered on 11/29/16 02: 52; Admin Dose 1 EA; Start 11/28/16 at 02:00 Miscellaneous Information 1 ea NOTE XX ; Start 11/27/16 at 15:00 Glucose (Glutose) 15 gm Q15M PRN PO DECREASED GLUCOSE; Start 11/27/16 at 15:00 Glucose (Glutose) 22.5 gm Q15M PRN PO DECREASED GLUCOSE; Start 11/27/16 at 15: 00 Dextrose (D50w Syringe) 25 ml Q15M PRN IV DECREASED GLUCOSE; Start 11/27/16 at 15:00 Dextrose (D50w Syringe) 50 ml Q15M PRN IV DECREASED GLUCOSE; Start 11/27/16 at 15:00 Glucagon (Glucagen) 1 mg Q15M PRN IM DECREASED GLUCOSE; Start 11/27/16 at 15:00 Glucose (Glutose) 15 gm Q15M PRN BUCCAL DECREASED GLUCOSE; Start 11/27/16 at 15 :00 Acetaminophen (Tylenol Tab) 650 mg Q4H PRN PO MILD PAIN LEVEL 1-3; Start at 18:30 Atorvastatin Calcium (Lipitor) 20 mg QHS PO Last administered on 11/30/16 21:06 ; Admin Dose 20 MG; Start 11/27/16 at 21:00 Bisacodyl (Dulcolax) 10 mg Q2D PRN PO CONSTIPATION; Start 11/27/16 at 18:30 Cholecalciferol (Vitamin D) 1,000 unit QAM PO Last administered on 12/01/16 09: 08; Admin Dose 1,000 UNIT; Start 11/28/16 at 09:00 Divalproex Sodium (Depakote Sprinkle) 500 mg BID PO Last administered on 09:08; Admin Dose 500 MG; Start 11/27/16 at 21:00 Gabapentin (Neurontin) 100 mg TID PO Last administered on 12/01/16 12:26; Admin Dose 100 MG; Start 11/27/16 at 21:00 Magnesium Hydroxide (Milk Of Mag) 30 ml QHS PO Last administered on 11/30/16 21 :06; Admin Dose 30 ML; Start 11/27/16 at 21:00 Oxcarbazepine (Trileptal) 300 mg BID PO Last administered on 12/01/16 09:08; Admin Dose 300 MG; Start 11/27/16 at 21:00 Propranolol HCl (Inderal) 10 mg TID PO Last administered on 12/01/16 12:26; Admin Dose 10 MG; Start 11/27/16 at 21:00 Magnesium Oxide (Mag-Ox 400) 400 mg BID PO Last administered on 12/01/16 09:08 ; Admin Dose 400 MG; Start 11/27/16 at 21:00 Fish Oil (Fish Oil) 1,000 mg DAILY PO Last administered on 12/01/16 09:08; Admin Dose 1,000 MG; Start 11/27/16 at 20:00 Multivit/Ca Carb/ B Cmplx/FA/Prenat 1 tab 1 tab DAILY PO Last administered on 09:08; Admin Dose 1 TAB; Start 11/28/16 at 09:00 Ceftriaxone Sodium 50 ml @ 100 mls/hr Q24H IVPB Last administered on 12/01/16 00:25; Admin Dose 100 MLS/HR; Start 11/28/16 at 00:30 Sodium Chloride (NS) 1,000 ml @ 60 mls/hr [id number] IV Last administered on 12:23; Admin Dose 60 MLS/HR; Start 11/28/16 at 00:30 Pantoprazole (Protonix Tab) 40 mg DAILY@06 PO Last administered on 12/01/16 06: 27; Admin Dose 40 MG; Start 11/29/16 at 06:00 Sodium Biphosphate/ Sodium Phosphate (Fleet Enema) 133 ml DAILY PRN [place] CONSTIPATION; Start 11/28/16 at 21:00 Nicotine (Nicoderm 14 Mg/ 24hr) 1 patch DAILY TRANSDERM Last administered on 09:23; Admin Dose 1 PATCH; Start 11/29/16 at 09:00 Acetaminophen/ Hydrocodone Bitart ([place] (5/325)) 1 tab Q6H PRN PO PAIN Last administered on 11/30/16 23:01; Admin Dose 1 TAB; Start 11/29/16 at 17:30 SANCHO GARCIA MD Dec 01, 2016 14:18
--- NOTE | 2016-12-01 16:17 | PDOCDIS ---
Discharge Instructions CONDITION Patient Condition: Stable HOME CARE INSTRUCTIONS: Special Diet: CARDIAC ACTIVITY: Activity Restrictions: Slowly Increase Activity FOLLOW UP/APPOINTMENTS Follow-up Plan f/u dr biswas pcp at [facility] SALVATORE CALZADA MD Dec 01, 2016 16:17
--- NOTE | 2016-12-01 17:23 | PN ---
Date/Time of Note Date/Time of Note DATE: 12/01/16 TIME: 17:23 Assessment/Plan VTE Prophylaxis VTE Prophylaxis Intervention: other Lines/Catheters IV [facility] Peripheral IV Urinary Cath still in place: No Assessment/Plan Chief Complaint/Hosp Course ams hyperkalemia BETTER ashd hx depression dehydration SEPSIS W BACTEREMIA hx of 1. Acute hypoxic respiratory failure status post choking episode, status post intubation, extubation. 2. Aspiration pneumonia. 3. Hypoxic respiratory failure. 4. Seizure disorder. 5. First-degree heart block. 6. Thrombocytopenia. plan per order ANTIBIOTIC snf Problems: Subjective 24 Hr Interval Summary Cardiovascular: no complaints Gastrointestinal: no complaints Exam/Review of Systems Vital Signs Vitals Vital Signs Date Time Temp Pulse Resp B/P Pulse Ox O2 Delivery O2 Flow Rate FiO2 12/01/16 16:16 76 12/01/16 15:13 97.6 20 131/84 96 11/30/16 08:00 Nasal Cannula 2.0 Intake and Output 11/30/16 11/30/16 12/01/16 15:00 23:00 07:00 Intake Total 870 ml 1290 ml Output Total 900 ml 1450 ml Balance -30 ml -160 ml Exam Respiratory: clear to auscultation Cardiovascular: regular rate and rhythm Gastrointestinal: soft Musculoskeletal: nl extremities to inspection Results Result Diagram: 11/30/16 0625 11/30/16 0525 Results 24 hrs Laboratory Tests Test 11/30/16 21:04 12/01/16 07:45 12/01/16 12:19 12/01/16 16:53 Bedside Glucose 159 104 129 196 Medications Medications Current Medications Acetaminophen (Tylenol Liquid) 650 mg Q4H PRN PO PAIN AND OR ELEVATED TEMP; Start 11/27/16 at 07:00 Diagnostic Test (Pha) (Accu-Chek) 1 ea 02 XX Last administered on 11/29/16t 02: 52; Admin Dose 1 EA; Start 11/28/16 at 02:00 Miscellaneous Information 1 ea NOTE XX ; Start 11/27/16 at 15:00 Glucose (Glutose) 15 gm Q15M PRN PO DECREASED GLUCOSE; Start 11/27/16 at 15:00 Glucose (Glutose) 22.5 gm Q15M PRN PO DECREASED GLUCOSE; Start 11/27/16 at 15: 00 Dextrose (D50w Syringe) 25 ml Q15M PRN IV DECREASED GLUCOSE; Start 11/27/16 at 15:00 Dextrose (D50w Syringe) 50 ml Q15M PRN IV DECREASED GLUCOSE; Start 11/27/16 at 15:00 Glucagon (Glucagen) 1 mg Q15M PRN IM DECREASED GLUCOSE; Start 11/27/16 at 15:00 Glucose (Glutose) 15 gm Q15M PRN BUCCAL DECREASED GLUCOSE; Start 11/27/16 at 15 :00 Acetaminophen (Tylenol Tab) 650 mg Q4H PRN PO MILD PAIN LEVEL 1-3; Start at 18:30 Atorvastatin Calcium (Lipitor) 20 mg QHS PO Last administered on 11/30/16 21:06 ; Admin Dose 20 MG; Start 11/27/16 at 21:00 Bisacodyl (Dulcolax) 10 mg Q2D PRN PO CONSTIPATION; Start 11/27/16 at 18:30 Cholecalciferol (Vitamin D) 1,000 unit QAM PO Last administered on 12/01/16 09: 08; Admin Dose 1,000 UNIT; Start 11/28/16 at 09:00 Divalproex Sodium (Depakote Sprinkle) 500 mg BID PO Last administered on 09:08; Admin Dose 500 MG; Start 11/27/16 at 21:00 Gabapentin (Neurontin) 100 mg TID PO Last administered on 12/01/16 12:26; Admin Dose 100 MG; Start 11/27/16 at 21:00 Magnesium Hydroxide (Milk Of Mag) 30 ml QHS PO Last administered on 11/30/16 21 :06; Admin Dose 30 ML; Start 11/27/16 at 21:00 Oxcarbazepine (Trileptal) 300 mg BID PO Last administered on 12/01/16 09:08; Admin Dose 300 MG; Start 11/27/16 at 21:00 Propranolol HCl (Inderal) 10 mg TID PO Last administered on 12/01/16 12:26; Admin Dose 10 MG; Start 11/27/16 at 21:00 Magnesium Oxide (Mag-Ox 400) 400 mg BID PO Last administered on 12/01/16 09:08 ; Admin Dose 400 MG; Start 11/27/16 at 21:00 Fish Oil (Fish Oil) 1,000 mg DAILY PO Last administered on 12/01/16 09:08; Admin Dose 1,000 MG; Start 11/27/16 at 20:00 Multivit/Ca Carb/ B Cmplx/FA/Prenat 1 tab 1 tab DAILY PO Last administered on 09:08; Admin Dose 1 TAB; Start 11/28/16 at 09:00 Ceftriaxone Sodium 50 ml @ 100 mls/hr Q24H IVPB Last administered on 12/01/16 00:25; Admin Dose 100 MLS/HR; Start 11/28/16 at 00:30 Sodium Chloride (NS) 1,000 ml @ 60 mls/hr [id number] IV Last administered on 12:23; Admin Dose 60 MLS/HR; Start 11/28/16 at 00:30 Pantoprazole (Protonix Tab) 40 mg DAILY@06 PO Last administered on 12/01/16 06: 27; Admin Dose 40 MG; Start 11/29/16 at 06:00 Sodium Biphosphate/ Sodium Phosphate (Fleet Enema) 133 ml DAILY PRN [place] CONSTIPATION; Start 11/28/16 at 21:00 Nicotine (Nicoderm 14 Mg/ 24hr) 1 patch DAILY TRANSDERM Last administered on 09:23; Admin Dose 1 PATCH; Start 11/29/16 at 09:00 Acetaminophen/ Hydrocodone Bitart ([employer] (5/325)) 1 tab Q6H PRN PO PAIN Last administered on 11/30/16 23:01; Admin Dose 1 TAB; Start 11/29/16 at 17:30 SALVATORE CALZADA MD Dec 01, 2016 17:23
[2016-12-01] MEDS ORDERED: SOD CHLORIDE 0.9% 1,000 ML IV SCH (20:00)
[2016-12-01] MEDS: MAGNESIUM HYDROXIDE 30ML CUP PO SCH (20:28)
[2016-12-01] MEDS: ATORVASTATIN 20 MG TAB PO SCH (20:29)
[2016-12-01] MEDS ORDERED: SOD CHLORIDE 0.9% 300 ML IV SCH (20:30)
--- NOTE | 2016-12-02 15:51 | DS ---
Date/Time of Note Date/Time of Note DATE: 12/02/16 TIME: 15:49 Discharge Summary Admission/Discharge Info Admit Date/Time Nov 27, 2016 at 01:56 Discharge Date/Time Dec 01, 2016 at 23:05 Discharge Diagnosis s/p choking episode Patient Condition: Serious Consults cardiology Hx of Present Illness pt with AMS had a choking episode. Was treated in hospital for aspirational pneumonia, stabilized Hospital Course ams hyperkalemia BETTER ashd hx depression dehydration SEPSIS W BACTEREMIA hx of 1. Acute hypoxic respiratory failure status post choking episode, status post intubation, extubation. 2. Aspiration pneumonia. 3. Hypoxic respiratory failure. 4. Seizure disorder. 5. First-degree heart block. 6. Thrombocytopenia. plan per order ANTIBIOTIC snf Home Meds Reported Medications Sod Phosphate/Sod Biphosphate* (Fleet* Enema Pediatric) 66.6 Ml Soln, 66.6 ML [place] DAILY Y for CONSTIPATION, ENEMA 09/02/16 Acetaminophen* (Tylenol*) 325 Mg Tablet, 650 MG PO Q4H Y for MILD PAIN LEVEL 1-3 , TAB AND FOR FEVER>100 09/02/16 Magnesium Hydroxide* (Milk Of Magnesia*) 400 Mg/5 Ml Oral.susp, 30 ML PO QHS, ML 09/02/16 Bisacodyl* (Dulcolax*) 5 Mg Tablet.dr, 10 MG PO Q2D Y for CONSTIPATION, TAB 09/02/16 Cholecalciferol* (Vitamin D3*) 1,000 Unit Tablet, 1000 UNIT PO QAM, TAB 09/02/16 Oxcarbazepine* (Trileptal*) 300 Mg Tablet, 300 MG PO BID, TAB 09/02/16 Propranolol Hcl* (Propranolol Hcl*) 10 Mg Tablet, 10 MG PO TID, TAB HOLD IF SBP<110 HR<60 9AM,1PM,5PM. 09/02/16 Gabapentin* (Neurontin*) 100 Mg Capsule, 100 MG PO TID, #90 CAP TAKE 9AM,1PM,5PM. 09/02/16 [Nephrovite] No Conflict Check, 1 TAB PO QAM 09/02/16 Magnesium Oxide (Magnesium) 250 Mg Tablet, 250 MG PO BID, TAB 09/02/16 Atorvastatin Calcium* (Atorvastatin Calcium*) 20 Mg Tablet, 20 MG PO QHS, #30 TAB 09/02/16 [place]-3 Fatty Acids/Fish Oil (Fish Oil 1,000 mg Softgel) 1 Each Capsule, 1 EACH PO QAM, CAP 09/02/16 Divalproex Sodium* (Depakote* Sprinkle) 125 Mg Cap.sprink, 500 MG PO BID, #360 CAP 09:00 AM AND 05:00 PM 09/02/16 Discontinued Reported Medications Phenytoin* Sodium Extended (Dilantin*) 100 Mg Capsule, 200 MG PO HS, CAP 09/02/16 Lactulose* (Lactulose*) 20 Gm/30 Ml Solution, 45 GM PO QID, ML TAKE 9AM,1PM,5PM,9PM. 09/02/16 Primary Care Provider Sourav Gavin MD Pending Labs Laboratory Tests Test 12/01/16 16:53 12/01/16 20:34 Bedside Glucose 196mg/dL (70-220) 116mg/dL (70-220) MICHELE AMANDA Dec 02, 2016 15:51
== END 2016-12-01 23:05 ==
LOC: E/R 22:17 → INTOOBSV 11-27 01:56 → TEL 11-27 01:56
PROVIDERS: ADMIT Internal Medicine Nephrology; ATTEND Internal Medicine Nephrology
DX: J96.01 Acute respiratory failure with hypoxia (principal); J69.0 Pneumonitis due to inhalation of food and vomit; I44.0 Atrioventricular block, first degree; D69.6 Thrombocytopenia, unspecified; E11.9 Type 2 diabetes mellitus without complications; G93.40 Encephalopathy, unspecified; R56.9 Unspecified convulsions
CPT/HCPCS: 36415; 70450; 71010; 80048; 80053; 80061; 80156; 80164; 80185; 80307; 81003; 82962; 83036; 83605; 84484; 85025; 87040; 87081; 87086; 93005; 96361; 96365; 96366; 96372; 96374; 96375; 99285; C9113; G0378; J0696; J1815; J7030; J7040; J7042

== ENCOUNTER 2017-01-01 03:14 | Inpatient (IN) | payer MEDICARE, OTHER ==
[2017-01-01] VITALS (10 sets, daily range): BP systolic 113–166; BP diastolic 67–93; PULSE 69–102; RESP 17–18; TEMP 99.8; Ht 193 cm; Wt 84.0 kg
[~2017-01-01] VITALS: Ht 193 cm; Wt 84.0 kg
[~2017-01-01 03:14] MED LIST changes: -LACT20SO2 PO; +OMEG1CAP17 PO; -OMEG1CAP9 PO; -PHEN100C PO
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
--- NOTE | 2017-01-01 04:47 | RADRPT ---
PROCEDURE: CHEST - 1 VIEW CLINICAL INDICATION: 61-year-old male with altered mental status. TECHNIQUE: A single frontal AP upright portable view of the chest was performed. The images were reviewed on a PACS workstation. COMPARISON: Chest x-ray November 26, 2016. FINDINGS: There is a shallow inspiration accentuating the heart size. Accounting for this, the cardiomediasti nal silhouette is prominent but within normal limits. The thoracic aortic arch is mildly calcified. There is bilateral lower lung zone subsegmental atelectasis. There is a patchy focal infiltrate w ithin the left mid/lower lung zone. There is no evidence for congestive heart failure. There is no e vidence for pneumothorax. The osseous structures are intact. IMPRESSION: 1. Calcified thoracic aortic arch. 2. Patchy left mid/lower lung zone infiltrate. 3. Shallow inspiration. 4. Mild bibasilar subsegmental atelectasis. .Dewey Marshall MD, MD Date Time Electronically viewed and signed by .Dewey Marshall MD, on 01/01/2017 04:47 .M/
[2017-01-01 05:03] LABS: ABNORMAL IP MESSAGE 1; HEMATOCRIT 39.3 % (42.0-52.0); HEMOGLOBIN 13.3 g/dl (14.0-18.0); MEAN CORPUSCULAR HEMOGLOBIN 32.2 pg (29.0-33.0); MEAN CORPUSCULAR HGB CONC 33.8 g/dl (32.0-37.0); MEAN CORPUSCULAR VOLUME 95.2 fl (82.0-101.0); PLATELET COUNT 130 10^3/UL (140-415); POSITIVE DIFF @See below; RED BLOOD COUNT 4.13 10^6/ul (4.70-6.10); RED CELL DISTRIBUTION WIDTH 11.9 % (11.5-14.5); WHITE BLOOD COUNT 15.7 10^3/ul (4.8-10.8)
[2017-01-01 05:17] LABS: ADD UMIC YES; UR ASCORBIC ACID NEGATIVE (NEGATIVE); UR BILIRUBIN (Dip) NEGATIVE (NEGATIVE); UR BLOOD (Dip) NEGATIVE (NEGATIVE); UR CLARITY SLIGHTLY CLOUDY (CLEAR); UR COLOR YELLOW (YELLOW); UR GLUCOSE (Dip) 3+ mg/dL (NEGATIVE); UR KETONES (Dip) TRACE mg/dL (NEGATIVE); UR LEUKOCYTE ESTERASE (Dip) NEGATIVE Leu/ul (NEGATIVE); UR NITRITE (Dip) NEGATIVE (NEGATIVE); UR RBC 1 /HPF (0-5); UR SPECIFIC GRAVITY (Dip) 1.021 (1.003-1.030); UR TOTAL PROTEIN (Dip) 1+ mg/dl (NEGATIVE); UR UROBILINOGEN (Dip) NEGATIVE (NEGATIVE)
[2017-01-01 05:32] LABS: ALANINE AMINOTRANSFERASE 47 IU/L (13-69); ALBUMIN 4.1 g/dl (3.3-4.9); ALKALINE PHOSPHATASE 59 IU/L (42-121); ANION GAP 23 (8-16); ASPARTATE AMINO TRANSFERASE 32 IU/L (15-46); BILIRUBIN,INDIRECT 0.2 mg/dl (0-1.1); BILIRUBIN,TOTAL 0.2 mg/dl (0.2-1.3); BLOOD UREA NITROGEN 33 mg/dl (7-20); CALCIUM 9.6 mg/dl (8.4-10.2); CARBON DIOXIDE 30 mmol/L (21-31); CHLORIDE 96 mmol/L (97-110); GLUCOSE 268 mg/dl (70-220); POTASSIUM 4.6 mmol/L (3.5-5.1); SODIUM 144 mmol/L (135-144); TOTAL PROTEIN 8.2 g/dl (6.1-8.1)
--- NOTE | 2017-01-01 05:47 | ERA ---
ER Documentation Chief Complaint Date/Time DATE: 01/01/17 TIME: 05:46 Chief Complaint ALOC HPI This is a 61-year-old male complains of alteration of mental status. Per facility, patient is more altered than normal. No nausea no vomiting no chills. No other current complaints. Patient does not provide any relevant history ROS All systems reviewed and are negative except as per history of present illness. Medications Home Meds Reported Medications Sod Phosphate/Sod Biphosphate* (Fleet* Enema Pediatric) 66.6 Ml Soln, 66.6 ML NV DAILY Y for CONSTIPATION, ENEMA 09/02/16 Acetaminophen* (Tylenol*) 325 Mg Tablet, 650 MG PO Q4H Y for MILD PAIN LEVEL 1-3 , TAB AND FOR FEVER>100 09/02/16 Magnesium Hydroxide* (Milk Of Magnesia*) 400 Mg/5 Ml Oral.susp, 30 ML PO QHS, ML 09/02/16 Bisacodyl* (Dulcolax*) 5 Mg Tablet.dr, 10 MG PO Q2D Y for CONSTIPATION, TAB 09/02/16 Cholecalciferol* (Vitamin D3*) 1,000 Unit Tablet, 1000 UNIT PO QAM, TAB 09/02/16 Oxcarbazepine* (Trileptal*) 300 Mg Tablet, 300 MG PO BID, TAB 09/02/16 Propranolol Hcl* (Propranolol Hcl*) 10 Mg Tablet, 10 MG PO TID, TAB HOLD IF SBP<110 HR<60 9AM,1PM,5PM. 09/02/16 Gabapentin* (Neurontin*) 100 Mg Capsule, 100 MG PO TID, #90 CAP TAKE 9AM,1PM,5PM. 09/02/16 [Nephrovite] No Conflict Check, 1 TAB PO QAM 09/02/16 Magnesium Oxide (Magnesium) 250 Mg Tablet, 250 MG PO BID, TAB 09/02/16 Atorvastatin Calcium* (Atorvastatin Calcium*) 20 Mg Tablet, 20 MG PO QHS, #30 TAB 09/02/16 [place]-3 Fatty Acids/Fish Oil (Fish Oil 1,000 mg Softgel) 1 Each Capsule, 1 EACH PO QAM, CAP 09/02/16 Divalproex Sodium* (Depakote* Sprinkle) 125 Mg Cap.sprink, 500 MG PO BID, #360 CAP 09:00 AM AND 05:00 PM 09/02/16 Allergies Allergies: Coded Allergies: Penicillins (Verified Allergy, Unknown, 11/27/16) PMhx/Soc History of Surgery: Yes (Craniotomy ) Anesthesia Reaction: No Hx Neurological Disorder: Yes (seizure, polyneuropathy) Hx Respiratory Disorders: No Hx Cardiac Disorders: Yes (HTN, anemia ) Hx Psychiatric Problems: Yes (Depression, Dementia ) Hx Miscellaneous Medical Probl: No Hx Alcohol Use: Yes (quite 8yrs ago, daily drinker prior) Hx Substance Use: Yes (Marijuana) Hx Tobacco Use: Yes Physical Exam Vitals Vital Signs Date Time Temp Pulse Resp B/P Pulse Ox O2 Delivery O2 Flow Rate FiO2 01/01/17 03:24 100.2 101 18 133/81 92 Physical Exam Const: [] Head: Atraumatic Eyes: Normal Conjunctiva ENT: Normal External Ears, Nose and Mouth. Neck: Full range of motion..~ No meningismus. Resp: Clear to auscultation bilaterally Cardio: Regular rate and rhythm, no murmurs Abd: Soft, non tender, non distended. Normal bowel sounds Skin: No petechiae or rashes Back: No midline or flank tenderness Ext: No cyanosis, or edema Neur: Awake and alert Psych: Normal Mood and Affect Result Diagram: 01/01/17 0415 01/01/17 0415 Results 24 hrs Laboratory Tests Test 01/01/17 03:37 01/01/17 04:15 01/01/17 04:45 Bedside Glucose 244mg/dL White Blood Count 15.710^3/ul Red Blood Count 4.1310^6/ul Hemoglobin 13.3g/dl Hematocrit 39.3% Mean Corpuscular Volume 95.2fl Mean Corpuscular Hemoglobin 32.2pg Mean Corpuscular Hemoglobin Concent 33.8g/dl Red Cell Distribution Width 11.9% Platelet Count 01708^3/UL Mean Platelet Volume 13.0fl Neutrophils % 76.2% Lymphocytes % 13.5% Monocytes % 9.7% Eosinophils % 0.0% Basophils % 0.2% Nucleated Red Blood Cells % 0.0/100WBC Neutrophils # 12.010^3/ul Lymphocytes # 2.110^3/ul Monocytes # 1.510^3/ul Eosinophils # 0.010^3/ul Basophils # 0.010^3/ul Nucleated Red Blood Cells # 0.010^3/ul Sodium Level 144mmol/L Potassium Level 4.6mmol/L Chloride Level 96mmol/L Carbon Dioxide Level 30mmol/L Anion Gap 23 Blood Urea Nitrogen 33mg/dl Creatinine 1.10mg/dl Glucose Level 268mg/dl Calcium Level 9.6mg/dl Total Bilirubin 0.2mg/dl Direct Bilirubin 0.00mg/dl Indirect Bilirubin 0.2mg/dl Aspartate Amino Transf (AST/SGOT) 32IU/L Alanine Aminotransferase (ALT/SGPT) 47IU/L Alkaline Phosphatase 59IU/L Total Protein 8.2g/dl Albumin 4.1g/dl Globulin 4.10g/dl Albumin/Globulin Ratio 1.00 Salicylates Level Pending Acetaminophen Level Pending Ethyl Alcohol Level mg/dl Urine Color YELLOW Urine Clarity SLIGHTLY CLOUDY Urine pH 5.0 Urine Specific [place] 1.021 Urine Ketones TRACEmg/dL Urine Nitrite NEGATIVEmg/dL Urine Bilirubin NEGATIVEmg/dL Urine Urobilinogen NEGATIVEmg/dL Urine Leukocyte Esterase NEGATIVELeu/ul Urine Microscopic RBC 1/HPF Urine Microscopic WBC 0/HPF Urine Hemoglobin NEGATIVEmg/dL Urine Glucose 3+mg/dL Urine Total Protein 1+mg/dl Procedures/MDM EKG: Rate/Rhythm: Normal Sinus Rhythm QRS, ST, T-waves: No changes consistent w/ acute ischemia Impression: No evidence of ischemia or arrhythmia Chest X-ray 1V Interpreted by me: Soft Tissue: No acute abnormalities Bones: No acute abnormalities Mediastinum/Cardiac Silhouette/Lungs: No acute abnormalities Medical decision-makin-year-old male who is alteration from baseline mental status will require further emergent management. Patient will be admitted to hospitalist. Departure Diagnosis: Primary Impression: Altered level of consciousness Additional Impression: Altered mental status Qualified Code: R41.82 - Altered mental status, unspecified altered mental status type Condition: Serious ELLIE HOLLIDAYAmber Jan 01, 2017 05:47
[2017-01-01 06:10] LABS: LYMPHOCYTES # 3.6 10^3/ul (0.8-2.9); MONOCYTE # 1.3 10^3/ul (0.3-0.9); NEUTROPHIL # 8.5 10^3/ul (1.6-7.5)
[2017-01-01] MEDS ORDERED: OMEP20CA16 PO (06:29)
[2017-01-01] MEDS ORDERED: ASPI81TA3 PO (06:29)
[2017-01-01] MEDS ORDERED: PHEN125O2 PO (06:29)
[2017-01-01] MEDS ORDERED: NEO500 PO (06:29)
[2017-01-01 06:31] LABS: BARBITURATES Negative (NEGATIVE)
[2017-01-01 06:38] LABS: ACETAMINOPHEN < 10.0 ug/ml (10.0-30.0); SALICYLATE < 1.0 mg/dl (5.0-30.0)
[2017-01-01 06:38] LABS: BENZODIAZEPINES Negative (NEGATIVE); CANNABINOIDS Negative (NEGATIVE); COCAINE Negative (NEGATIVE); OPIATES Negative (NEGATIVE)
[2017-01-01] MEDS ORDERED: ACETAMINOPHEN 325 MG TAB PO PRN (10:30)
[2017-01-01] MEDS ORDERED: MAGNESIUM HYDROXIDE 30ML CUP PO PRN (10:30)
[2017-01-01] MEDS ORDERED: BISACODYL (EC) 5 MG TAB PO PRN (10:30)
[2017-01-01] MEDS: DEXTROSE 5%-0.45% NACL 1,000 ML IV SCH (12:33)
[2017-01-01] MEDS: ASPIRIN 81 MG TAB PO SCH (14:36)
[2017-01-01] MEDS: PROPRANOLOL 10 MG TAB PO SCH ×2 (14:36→21:31)
[2017-01-01] MEDS: DIVALPROEX (EC) 500 MG TAB PO SCH ×2 (14:36→21:28)
[2017-01-01] MEDS: LEVOFLOXACIN 500 MG TAB PO SCH (14:37)
[2017-01-01] MEDS: OXCARBAZEPINE 300 MG TAB PO SCH ×2 (14:37→21:31)
[2017-01-01] MEDS: PHENYTOIN 100 MG CAP PO SCH (21:29)
[2017-01-01] MEDS: FISH OIL 1,000 MG CAP PO SCH (21:29)
[2017-01-01] MEDS: MAGNESIUM OXIDE 400 MG TAB PO SCH (21:31)
--- NOTE | 2017-01-01 23:54 | QN ---
Documentation Comment [id number] HP SALVATORE CALZADA MD Jan 01, 2017 23:54
[2017-01-02] VITALS (12 sets, daily range): BP systolic 112–154; BP diastolic 69–78; PULSE 77–85; RESP 17–19
[2017-01-02] MEDS: PANTOPRAZOLE (EC) 40 MG TAB PO SCH (06:05)
[2017-01-02] MEDS: LEVOFLOXACIN 500 MG TAB PO SCH (06:05)
[2017-01-02 07:24] LABS: BASOPHILS % 0.2 % (0.0-2.0); EOSINOPHILS # 0.1 10^3/ul (0.0-0.5); EOSINOPHILS % 0.8 % (0.0-7.0); HEMATOCRIT 34.7 % (42.0-52.0); LYMPHOCYTES # 2.2 10^3/ul (0.8-2.9); LYMPHOCYTES % 17.2 % (15.0-51.0); MEAN CORPUSCULAR HEMOGLOBIN 33.1 pg (29.0-33.0); MEAN CORPUSCULAR HGB CONC 34.6 g/dl (32.0-37.0); MEAN CORPUSCULAR VOLUME 95.9 fl (82.0-101.0); MEAN PLATELET VOLUME 12.9 fl (7.4-10.4); MONOCYTE # 1.3 10^3/ul (0.3-0.9); NEUTROPHIL # 9.3 10^3/ul (1.6-7.5); NEUTROPHILS % 71.3 % (39.0-77.0); PLATELET COUNT 131 10^3/UL (140-415); RED BLOOD COUNT 3.62 10^6/ul (4.70-6.10); RED CELL DISTRIBUTION WIDTH 11.5 % (11.5-14.5)
[2017-01-02 08:16] LABS: ALBUMIN 3.8 g/dl (3.3-4.9); BILIRUBIN,INDIRECT 0.1 mg/dl (0-1.1); BILIRUBIN,TOTAL 0.1 mg/dl (0.2-1.3); CALCIUM 9.1 mg/dl (8.4-10.2); CREATININE 1.1 mg/dl (0.61-1.24); POTASSIUM 4.4 mmol/L (3.5-5.1); TOTAL PROTEIN 7.6 g/dl (6.1-8.1)
[2017-01-02] MEDS: DEXTROSE 5%-0.45% NACL 1,000 ML IV SCH (10:01)
[2017-01-02] MEDS: CHOLECALCIFEROL 1,000 UNIT TAB PO SCH (10:01)
[2017-01-02] MEDS: MULTIVIT/CA CARB/B CMPLX/FA TAB PO SCH (10:01)
[2017-01-02] MEDS: DIVALPROEX (EC) 500 MG TAB PO SCH ×2 (10:01→20:51)
[2017-01-02] MEDS: OXCARBAZEPINE 300 MG TAB PO SCH ×2 (10:01→20:51)
[2017-01-02] MEDS: MAGNESIUM OXIDE 400 MG TAB PO SCH ×2 (10:01→20:51)
[2017-01-02] MEDS: ASPIRIN 81 MG TAB PO SCH (10:02)
[2017-01-02] MEDS: PROPRANOLOL 10 MG TAB PO SCH ×3 (10:05→20:52)
[2017-01-02] MEDS: PHENYTOIN 100 MG CAP PO SCH (20:50)
[2017-01-02] MEDS: FISH OIL 1,000 MG CAP PO SCH (20:50)
[2017-01-03] VITALS (12 sets, daily range): BP systolic 127–143; BP diastolic 78–90; PULSE 72–79; RESP 17–19
--- NOTE | 2017-01-03 00:15 | PN ---
Date/Time of Note Date/Time of Note DATE: 01/03/17 TIME: 00:13 Assessment/Plan VTE Prophylaxis VTE Prophylaxis Intervention: other Lines/Catheters IV Catheter Type (from Nrsg): Peripheral IV Urinary Cath still in place: Yes Reason Cath still needed: other (indicate) Assessment/Plan Chief Complaint/Hosp Course dm sirs pneumonia ashd dehydration encephalopathy plan per order Problems: Subjective 24 Hr Interval Summary Respiratory: no complaints, shortness of breath (neg) Gastrointestinal: no complaints Exam/Review of Systems Vital Signs Vitals Vital Signs Date Time Temp Pulse Resp B/P Pulse Ox O2 Delivery O2 Flow Rate FiO2 01/03/17 00:10 98.0 80 17 127/78 95 01/01/17 08:00 Nasal Cannula 2.0 Intake and Output 01/02/17 01/02/17 01/03/17 15:00 23:00 07:00 Intake Total 620 ml Output Total 600 ml Balance 20 ml Exam Respiratory: clear to auscultation Cardiovascular: regular rate and rhythm Gastrointestinal: bowel sounds (+), soft Results Result Diagram: 01/02/17 0625 01/02/17 0625 Results 24 hrs Laboratory Tests Test 01/02/17 00:32 01/02/17 06:25 Hemoglobin A1c 6.4 H White Blood Count 13.0 H Red Blood Count 3.62 L Hemoglobin 12.0 L Hematocrit 34.7 L Mean Corpuscular Volume 95.9 Mean Corpuscular Hemoglobin 33.1 H Mean Corpuscular Hemoglobin Concent 34.6 Red Cell Distribution Width 11.5 Platelet Count 131 L Mean Platelet Volume 12.9 H Neutrophils % 71.3 Lymphocytes % 17.2 Monocytes % 10.0 Eosinophils % 0.8 Basophils % 0.2 Nucleated Red Blood Cells % 0.0 Neutrophils # 9.3 H Lymphocytes # 2.2 Monocytes # 1.3 H Eosinophils # 0.1 Basophils # 0.0 Nucleated Red Blood Cells # 0.0 Sodium Level 145 H Potassium Level 4.4 Chloride Level 98 Carbon Dioxide Level 32 H Anion Gap 19 H Blood Urea Nitrogen 31 H Creatinine 1.10 Glucose Level 222 H Calcium Level 9.1 Total Bilirubin 0.1 L Direct Bilirubin 0.00 Indirect Bilirubin 0.1 Aspartate Amino Transf (AST/SGOT) 28 Alanine Aminotransferase (ALT/SGPT) 39 Alkaline Phosphatase 63 Total Protein 7.6 Albumin 3.8 Globulin 3.80 H Albumin/Globulin Ratio 1.00 Medications Medications Current Medications Dextrose/Sodium Chloride (D5-1/2ns) 1,000 ml @ 50 mls/hr Q20H IV Last administered on 01/02/17 10:01; Admin Dose 50 MLS/HR; Start 01/01/17 at 10:30 Pantoprazole (Protonix Tab) 40 mg DAILY@06 PO Last administered on 01/02/17 06: 05; Admin Dose 40 MG; Start 01/02/17 at 06:00 Levofloxacin (Levaquin) 500 mg DAILY@06 PO Last administered on 01/02/17 06:05 ; Admin Dose 500 MG; Start 01/01/17 at 10:30 Acetaminophen (Tylenol Tab) 650 mg Q4H PRN PO PAIN AND OR ELEVATED TEMP; Start 01/01/17 at 10:30 Aspirin (Aspirin) 81 mg DAILY PO Last administered on 01/02/17 10:02; Admin Dose 81 MG; Start 01/01/17 at 10:30 Bisacodyl (Dulcolax) 10 mg DAILY PRN PO CONSTIPATION; Start 01/01/17 at 10:30 Cholecalciferol (Vitamin D) 1,000 unit DAILY PO Last administered on 01/02/17 10:01; Admin Dose 1,000 UNIT; Start 01/02/17 at 09:00 Divalproex Sodium (Depakote) 500 mg BID PO Last administered on 01/02/17 20:51 ; Admin Dose 500 MG; Start 01/01/17 at 12:00 Magnesium Hydroxide (Milk Of Mag) 30 ml HS PRN PO CONSTIPATION; Start 01/01/17 at 10:30 Magnesium Oxide (Mag-Ox 400) 250 mg BID PO Last administered on 01/02/17 20:51 ; Admin Dose 250 MG; Start 01/01/17 at 21:00 Fish Oil (Fish Oil) 1,000 mg HS PO Last administered on 01/02/17 20:50; Admin Dose 1,000 MG; Start 01/01/17 at 21:00 Oxcarbazepine (Trileptal) 300 mg BID PO Last administered on 01/02/17 20:51; Admin Dose 300 MG; Start 01/01/17 at 12:00 Phenytoin (Dilantin) 100 mg HS PO Last administered on 01/02/17 20:50; Admin Dose 100 MG; Start 01/01/17 at 21:00 Propranolol HCl (Inderal) 10 mg TID PO Last administered on 01/02/17 20:52; Admin Dose 10 MG; Start 01/01/17 at 13:00 Multivit/Ca Carb/ B Cmplx/FA/Prenat (Mitali-Uma) 1 tab DAILY PO Last administered on 01/02/17 10:01; Admin Dose 1 TAB; Start 01/02/17 at 09:00 SALVATORE CALZADA MD Jan 03, 2017 00:14
[2017-01-03] MEDS: PANTOPRAZOLE (EC) 40 MG TAB PO SCH (06:28)
[2017-01-03] MEDS: LEVOFLOXACIN 500 MG TAB PO SCH (06:28)
[2017-01-03] MEDS: DEXTROSE 5%-0.45% NACL 1,000 ML IV SCH (06:29)
--- NOTE | 2017-01-03 08:49 | HP ---
DATE OF ADMISSION: 01/01/2017 HISTORY OF PRESENT ILLNESS: Polo Miller is a 61-year-old male who was recently discharged from the hospital with the diagnosis of altered mental status, hyperkalemia, atherosclerotic heart disease, depression, dehydration, sepsis with bacteremia. Acute hypoxic respiratory failure, aspiration pneumonia, seizure disorder, and , and thrombocytopenia. The patient now presents with confusion, dehydration. Himself unable to give any good history. The patient's history is obtained from the patient's ER chart. The patient initially was admitted to the hospitalist group and they made the decision to admit. History above is collected per patient's chart. WBC 15.7, hematocrit 39.3, platelet count 130,000. Sodium 140, potassium 4.6, BUN 23, creatinine 1.10, glucose 268. The patient had a chest x-ray done which showed calcified thoracic aortic arch at the left mid lower lung zone _ inspirations. The patient had CT scan of brain that showed there has been no marked interval change compared to the patient's CT scan showing prior left frontal parietal craniotomy. revision and kidney, ORIF right lateral orbit and right anterior maxillary sinus wall. Arthritic maxillary sinus. ALLERGIES: To Penicillin. MEDICATIONS: 1. Tylenol. 2. Aspirin. 3. Lipitor. 4. asa. 5. Vitamin D3. 6. Depakote. 7. Gabapentin. 8. Magnesium. 9. _zinc oxide. 10. Neomycin. 11. [place] 3. 12. Omeprazole. 13. Trileptal. 14. Carbocisteine. 15. asa. 16. Phenytoin. 17. Pantoprazole 18. ppi_. 19. Patient is currently on D5 half normal saline, Tylenol, aspirin, Viscodyne, folic acid, Depakote. Patient during admission, multiple vitamin, , Protonix, Dilantin, . SOCIAL HISTORY: Cannot obtain. REVIEW OF SYSTEMS: Could not be obtained. PHYSICAL EXAMINATION: VITAL SIGNS: Pulse is 81, blood pressure 126/70. GENERAL APPEARANCE: The patient is awake and arousable. HEENT: Head is no scalp lesion_ noted at this point. NECK: Supple. No JVD. LUNGS: Few rhonchi. CARDIAC: S1, S2 normal. ABDOMEN: Soft. bs+_. EXTREMITIES: There is no cyanosis, clubbing or edema. NEUROLOGIC: The patient is awake, and moving both upper and lower extremities by herself. IMPRESSION: 1. SI_ response syndrome. 2. Pneumonia. OTHER DIAGNOSES INCLUDE: 1. Leukocytosis. 2. Anemia. 3. encephalopathy. 4. Hyperglycemia. PLAN: The patient is to continue current treatment. Check hemoglobin A1c. IV fluids, antibiotic and bronchodilator. Continue home medications. Orders were done. Dictated By: Sourav Gavin MD BS/elia/wayne /Document#: [id number] BETO
[2017-01-03] MEDS: MULTIVIT/CA CARB/B CMPLX/FA TAB PO SCH (09:37)
[2017-01-03] MEDS: CHOLECALCIFEROL 1,000 UNIT TAB PO SCH (09:37)
[2017-01-03] MEDS: DIVALPROEX (EC) 500 MG TAB PO SCH ×2 (09:37→21:05)
[2017-01-03] MEDS: OXCARBAZEPINE 300 MG TAB PO SCH ×2 (09:37→21:05)
[2017-01-03] MEDS: PROPRANOLOL 10 MG TAB PO SCH ×3 (09:37→21:07)
[2017-01-03] MEDS: MAGNESIUM OXIDE 400 MG TAB PO SCH ×2 (09:37→21:05)
[2017-01-03] MEDS: ASPIRIN 81 MG TAB PO SCH (10:13)
--- NOTE | 2017-01-03 12:28 | CONS ---
Date/Time of Note Date/Time of Note DATE: 01/03/17 TIME: 12:26 Assessment/Plan Assessment/Plan Chief Complaint/Hosp Course 1. Diabetes mellitus Type II 2. sirs 3. pneumonia 4. ashd 5.dehydration 6. encephalopathy Problems: Additional Assessment/Plan 1. Better BS control 2. Optimization kidney function Consultation Date/Type/Reason Admit Date/Time Jan 01, 2017 at 05:42 Initial Consult Date 24 HR Interval Summary Constitutional: poor po Exam/Review of Systems Vital Signs Vitals Vital Signs Date Time Temp Pulse Resp B/P Pulse Ox O2 Delivery O2 Flow Rate FiO2 01/03/17 12:19 97.6 92 18 128/87 97 01/01/17 08:00 Nasal Cannula 2.0 Intake and Output 01/02/17 01/02/17 01/03/17 15:00 23:00 07:00 Intake Total 620 ml 120 ml Output Total 600 ml Balance 20 ml 120 ml Exam Constitutional: alert, other (slow) Head: normocephalic Respiratory: diminished breath sounds Cardiovascular: regular rate and rhythm Results Result Diagram: 01/02/17 0625 01/02/17 0625 Medications Medications Current Medications Dextrose/Sodium Chloride (D5-1/2ns) 1,000 ml @ 50 mls/hr Q20H IV Last administered on 01/03/17 06:29; Admin Dose 50 MLS/HR; Start 01/01/17 at 10:30 Pantoprazole (Protonix Tab) 40 mg DAILY@06 PO Last administered on 01/03/17 06: 28; Admin Dose 40 MG; Start 01/02/17 at 06:00 Levofloxacin (Levaquin) 500 mg DAILY@06 PO Last administered on 01/03/17 06:28 ; Admin Dose 500 MG; Start 01/01/17 at 10:30 Acetaminophen (Tylenol Tab) 650 mg Q4H PRN PO PAIN AND OR ELEVATED TEMP; Start 01/01/17 at 10:30 Aspirin (Aspirin) 81 mg DAILY PO Last administered on 01/03/17 10:13; Admin Dose 81 MG; Start 01/01/17 at 10:30 Bisacodyl (Dulcolax) 10 mg DAILY PRN PO CONSTIPATION; Start 01/01/17 at 10:30 Cholecalciferol (Vitamin D) 1,000 unit DAILY PO Last administered on 01/03/17 09:37; Admin Dose 1,000 UNIT; Start 01/02/17 at 09:00 Divalproex Sodium (Depakote) 500 mg BID PO Last administered on 01/03/17 09:37 ; Admin Dose 500 MG; Start 01/01/17 at 12:00 Magnesium Hydroxide (Milk Of Mag) 30 ml HS PRN PO CONSTIPATION; Start 01/01/17 at 10:30 Magnesium Oxide (Mag-Ox 400) 250 mg BID PO Last administered on 01/03/17 09:37 ; Admin Dose 250 MG; Start 01/01/17 at 21:00 Fish Oil (Fish Oil) 1,000 mg HS PO Last administered on 01/02/17 20:50; Admin Dose 1,000 MG; Start 01/01/17 at 21:00 Oxcarbazepine (Trileptal) 300 mg BID PO Last administered on 01/03/17 09:37; Admin Dose 300 MG; Start 01/01/17 at 12:00 Phenytoin (Dilantin) 100 mg HS PO Last administered on 01/02/17 20:50; Admin Dose 100 MG; Start 01/01/17 at 21:00 Propranolol HCl (Inderal) 10 mg TID PO Last administered on 01/03/17 09:37; Admin Dose 10 MG; Start 01/01/17 at 13:00 Multivit/Ca Carb/ B Cmplx/FA/Prenat (Mitali-Uma) 1 tab DAILY PO Last administered on 01/03/17 09:37; Admin Dose 1 TAB; Start 01/02/17 at 09:00 MICHELE AMANDA Jan 03, 2017 12:28
[2017-01-03] MEDS ORDERED: GLUCAGON 1 MG INJ IM PRN (13:00)
[2017-01-03] MEDS ORDERED: DEXTROSE 50% 50 ML SYRINGE IV PRN ×2 (13:00)
[2017-01-03] MEDS ORDERED: GLUCOSE GEL 15 GRAM TUBE BUCCAL PRN (13:00)
[2017-01-03] MEDS ORDERED: GLUCOSE GEL 15 GRAM TUBE PO PRN ×2 (13:00)
[2017-01-03] MEDS: LINAGLIPTIN 5 MG TABLET PO SCH (13:04)
[2017-01-03] MEDS: ACCU-CHEK XX SCH ×2 (17:35→21:00)
[2017-01-03] MEDS: FISH OIL 1,000 MG CAP PO SCH (21:06)
[2017-01-03] MEDS: PHENYTOIN 100 MG CAP PO SCH (21:06)
[2017-01-03] MEDS: INSULIN GLARGINE [LANtus] 3 ML PEN SC SCH (21:10)
[2017-01-04] VITALS (12 sets, daily range): BP systolic 118–156; BP diastolic 69–85; PULSE 72–84; RESP 17–19
[2017-01-04] MEDS: PANTOPRAZOLE (EC) 40 MG TAB PO SCH (06:44)
[2017-01-04] MEDS: LEVOFLOXACIN 500 MG TAB PO SCH (06:44)
[2017-01-04] MEDS: DEXTROSE 5%-0.45% NACL 1,000 ML IV SCH ×2 (08:00→17:20)
[2017-01-04 08:06] LABS: BASOPHILS % 0.4 % (0.0-2.0); EOSINOPHILS # 0.1 10^3/ul (0.0-0.5); EOSINOPHILS % 1.7 % (0.0-7.0); HEMATOCRIT 34.2 % (42.0-52.0); HEMOGLOBIN 11.7 g/dl (14.0-18.0); LYMPHOCYTES # 1.7 10^3/ul (0.8-2.9); LYMPHOCYTES % 24.6 % (15.0-51.0); MEAN CORPUSCULAR HGB CONC 34.2 g/dl (32.0-37.0); MEAN CORPUSCULAR VOLUME 93.4 fl (82.0-101.0); MEAN PLATELET VOLUME 12.2 fl (7.4-10.4); MONOCYTE # 0.6 10^3/ul (0.3-0.9); MONOCYTES % 8.2 % (0.0-11.0); NEUTROPHIL # 4.5 10^3/ul (1.6-7.5); NEUTROPHILS % 64.1 % (39.0-77.0); PLATELET COUNT 133 10^3/UL (140-415); RED BLOOD COUNT 3.66 10^6/ul (4.70-6.10); RED CELL DISTRIBUTION WIDTH 11.5 % (11.5-14.5); WHITE BLOOD COUNT 7.1 10^3/ul (4.8-10.8)
[2017-01-04] MEDS: ACCU-CHEK XX SCH ×4 (08:16→20:59)
[2017-01-04 08:29] LABS: ALBUMIN 3.4 g/dl (3.3-4.9); ALBUMIN/GLOBULIN RATIO 0.91; BILIRUBIN,INDIRECT 0.1 mg/dl (0-1.1); BILIRUBIN,TOTAL 0.1 mg/dl (0.2-1.3); CALCIUM 8.6 mg/dl (8.4-10.2); CREATININE 0.93 mg/dl (0.61-1.24); POTASSIUM 3.5 mmol/L (3.5-5.1); TOTAL PROTEIN 7.1 g/dl (6.1-8.1)
[2017-01-04] MEDS: LINAGLIPTIN 5 MG TABLET PO SCH (09:01)
[2017-01-04] MEDS: MULTIVIT/CA CARB/B CMPLX/FA TAB PO SCH (09:01)
[2017-01-04] MEDS: DIVALPROEX (EC) 500 MG TAB PO SCH ×2 (09:02→20:56)
[2017-01-04] MEDS: CHOLECALCIFEROL 1,000 UNIT TAB PO SCH (09:02)
[2017-01-04] MEDS: MAGNESIUM OXIDE 400 MG TAB PO SCH ×2 (09:03→20:56)
[2017-01-04] MEDS: ASPIRIN 81 MG TAB PO SCH (09:03)
[2017-01-04] MEDS: OXCARBAZEPINE 300 MG TAB PO SCH ×2 (09:07→20:55)
[2017-01-04] MEDS: PROPRANOLOL 10 MG TAB PO SCH ×3 (09:19→20:56)
--- NOTE | 2017-01-04 12:22 | PN ---
Date/Time of Note Date/Time of Note DATE: 01/04/17 TIME: 12:21 Assessment/Plan VTE Prophylaxis VTE Prophylaxis Intervention: SCD's Lines/Catheters IV Catheter Type (from Nrs): Peripheral IV Urinary Cath still in place: Yes Reason Cath still needed: pres ulcer contaminated by urine Assessment/Plan Chief Complaint/Hosp Course 1. Diabetes mellitus Type II 2. sirs 3. pneumonia 4. ashd 5.dehydration 6. encephalopathy Problems: Assessment/Plan 1. Continue current regime Subjective 24 Hr Interval Summary Constitutional: improved, no complaints Exam/Review of Systems Vital Signs Vitals Vital Signs Date Time Temp Pulse Resp B/P Pulse Ox O2 Delivery O2 Flow Rate FiO2 01/04/17 12:08 84 01/04/17 11:38 98.3 17 126/77 98 01/01/17 08:00 Nasal Cannula 2.0 Intake and Output 01/03/17 01/03/17 01/04/17 15:00 23:00 07:00 Intake Total 380 ml 1000 ml Output Total 300 ml Balance 80 ml 1000 ml Exam Eyes: nl conjunctiva Neck: supple Respiratory: clear to auscultation Cardiovascular: regular rate and rhythm Results Result Diagram: 01/04/17 0730 01/04/17 0730 Results 24 hrs Laboratory Tests Test 01/03/17 17:28 01/03/17 21:03 01/04/17 07:30 01/04/17 08:15 Bedside Glucose 236 H 187 184 White Blood Count 7.1 # Red Blood Count 3.66 L Hemoglobin 11.7 L Hematocrit 34.2 L Mean Corpuscular Volume 93.4 Mean Corpuscular Hemoglobin 32.0 Mean Corpuscular Hemoglobin Concent 34.2 Red Cell Distribution Width 11.5 Platelet Count 133 L Mean Platelet Volume 12.2 H Neutrophils % 64.1 Lymphocytes % 24.6 Monocytes % 8.2 Eosinophils % 1.7 Basophils % 0.4 Nucleated Red Blood Cells % 0.0 Neutrophils # 4.5 Lymphocytes # 1.7 Monocytes # 0.6 Eosinophils # 0.1 Basophils # 0.0 Nucleated Red Blood Cells # 0.0 Sodium Level 141 Potassium Level 3.5 Chloride Level 100 Carbon Dioxide Level 27 Anion Gap 18 H Blood Urea Nitrogen 23 H Creatinine 0.93 Glucose Level 168 Calcium Level 8.6 Total Bilirubin 0.1 L Direct Bilirubin 0.00 Indirect Bilirubin 0.1 Aspartate Amino Transf (AST/SGOT) 29 Alanine Aminotransferase (ALT/SGPT) 42 Alkaline Phosphatase 59 Total Protein 7.1 Albumin 3.4 Globulin 3.70 H Albumin/Globulin Ratio 0.91 Test 01/04/17 11:52 Bedside Glucose 177 Medications Medications Current Medications Dextrose/Sodium Chloride (D5-1/2ns) 1,000 ml @ 50 mls/hr Q20H IV Last administered on 01/04/17 08:00; Admin Dose 50 MLS/HR; Start 01/01/17 at 10:30 Pantoprazole (Protonix Tab) 40 mg DAILY@06 PO Last administered on 01/04/17 06: 44; Admin Dose 40 MG; Start 01/02/17 at 06:00 Levofloxacin (Levaquin) 500 mg DAILY@06 PO Last administered on 01/04/17 06:44 ; Admin Dose 500 MG; Start 01/01/17 at 10:30 Acetaminophen (Tylenol Tab) 650 mg Q4H PRN PO PAIN AND OR ELEVATED TEMP; Start 01/01/17 at 10:30 Aspirin (Aspirin) 81 mg DAILY PO Last administered on 01/04/17 09:03; Admin Dose 81 MG; Start 01/01/17 at 10:30 Bisacodyl (Dulcolax) 10 mg DAILY PRN PO CONSTIPATION; Start 01/01/17 at 10:30 Cholecalciferol (Vitamin D) 1,000 unit DAILY PO Last administered on 01/04/17 09:02; Admin Dose 1,000 UNIT; Start 01/02/17 at 09:00 Divalproex Sodium (Depakote) 500 mg BID PO Last administered on 01/04/17 09:02 ; Admin Dose 500 MG; Start 01/01/17 at 12:00 Magnesium Hydroxide (Milk Of Mag) 30 ml HS PRN PO CONSTIPATION; Start 01/01/17 at 10:30 Magnesium Oxide (Mag-Ox 400) 250 mg BID PO Last administered on 01/04/17 09:03 ; Admin Dose 250 MG; Start 01/01/17 at 21:00 Fish Oil (Fish Oil) 1,000 mg HS PO Last administered on 01/03/17 21:06; Admin Dose 1,000 MG; Start 01/01/17 at 21:00 Oxcarbazepine (Trileptal) 300 mg BID PO Last administered on 01/04/17 09:07; Admin Dose 300 MG; Start 01/01/17 at 12:00 Phenytoin (Dilantin) 100 mg HS PO Last administered on 01/03/17 21:06; Admin Dose 100 MG; Start 01/01/17 at 21:00 Propranolol HCl (Inderal) 10 mg TID PO Last administered on 01/04/17 09:19; Admin Dose 10 MG; Start 01/01/17 at 13:00 Multivit/Ca Carb/ B Cmplx/FA/Prenat (Mitali-Uma) 1 tab DAILY PO Last administered on 01/04/17 09:01; Admin Dose 1 TAB; Start 01/02/17 at 09:00 Linagliptin (Tradjenta) 5 mg DAILY PO Last administered on 01/04/17 09:01; Admin Dose 5 MG; Start 01/03/17 at 12:30 Insulin Glargine (Lantus) 10 unit QHS SC Last administered on 01/03/17 21:10; Admin Dose 10 UNIT; Start 01/03/17 at 21:00 Miscellaneous Information 1 ea NOTE XX ; Start 01/03/17 at 13:00 Glucose (Glutose) 15 gm Q15M PRN PO DECREASED GLUCOSE; Start 01/03/17 at 13:00 Glucose (Glutose) 22.5 gm Q15M PRN PO DECREASED GLUCOSE; Start 01/03/17 at 13:00 Dextrose (D50w Syringe) 25 ml Q15M PRN IV DECREASED GLUCOSE; Start 01/03/17 at 13:00 Dextrose (D50w Syringe) 50 ml Q15M PRN IV DECREASED GLUCOSE; Start 01/03/17 at 13:00 Glucagon (Glucagen) 1 mg Q15M PRN IM DECREASED GLUCOSE; Start 01/03/17 at 13:00 Glucose (Glutose) 15 gm Q15M PRN BUCCAL DECREASED GLUCOSE; Start 01/03/17 at 13: 00 MICHELE AMANDA Jan 04, 2017 12:22
[2017-01-04] MEDS: PHENYTOIN 100 MG CAP PO SCH (20:56)
[2017-01-04] MEDS: FISH OIL 1,000 MG CAP PO SCH (20:56)
[2017-01-04] MEDS: INSULIN GLARGINE [LANtus] 3 ML PEN SC SCH (20:58)
[2017-01-05] VITALS (12 sets, daily range): BP systolic 92–150; BP diastolic 56–70; PULSE 72–77; RESP 16–19
[2017-01-05] MEDS: PANTOPRAZOLE (EC) 40 MG TAB PO SCH (06:35)
[2017-01-05] MEDS: LEVOFLOXACIN 500 MG TAB PO SCH (06:35)
[2017-01-05] MEDS: ACCU-CHEK XX SCH ×4 (08:10→21:00)
[2017-01-05] MEDS: ASPIRIN 81 MG TAB PO SCH (08:46)
[2017-01-05] MEDS: MAGNESIUM OXIDE 400 MG TAB PO SCH ×2 (08:46→21:29)
[2017-01-05] MEDS: CHOLECALCIFEROL 1,000 UNIT TAB PO SCH (08:46)
[2017-01-05] MEDS: MULTIVIT/CA CARB/B CMPLX/FA TAB PO SCH (08:46)
[2017-01-05] MEDS: PROPRANOLOL 10 MG TAB PO SCH ×3 (08:47→21:00)
[2017-01-05] MEDS: OXCARBAZEPINE 300 MG TAB PO SCH ×2 (08:47→21:29)
[2017-01-05] MEDS: DIVALPROEX (EC) 500 MG TAB PO SCH ×2 (08:49→21:29)
[2017-01-05] MEDS: LINAGLIPTIN 5 MG TABLET PO SCH (09:15)
[2017-01-05] MEDS: DEXTROSE 5%-0.45% NACL 1,000 ML IV SCH (11:39)
--- NOTE | 2017-01-05 18:27 | PN ---
Date/Time of Note Date/Time of Note DATE: 01/05/17 TIME: 18:26 Assessment/Plan VTE Prophylaxis VTE Prophylaxis Intervention: other Lines/Catheters IV Catheter Type (from Nrs): Peripheral IV Urinary Cath still in place: Yes Reason Cath still needed: other (indicate) Assessment/Plan Chief Complaint/Hosp Course dm sirs pneumonia ashd dehydration encephalopathy BETTER plan per order ANTIBIOTIC Problems: Subjective 24 Hr Interval Summary Respiratory: No shortness of breath Cardiovascular: no complaints Gastrointestinal: no complaints Exam/Review of Systems Vital Signs Vitals Vital Signs Date Time Temp Pulse Resp B/P Pulse Ox O2 Delivery O2 Flow Rate FiO2 01/05/17 16:13 99.1 72 18 111/68 93 01/01/17 08:00 Nasal Cannula 2.0 Intake and Output 01/04/17 01/04/17 01/05/17 15:00 23:00 07:00 Intake Total 1450 ml 900 ml Output Total 300 ml Balance 1450 ml 600 ml Exam Respiratory: clear to auscultation Cardiovascular: regular rate and rhythm Gastrointestinal: soft Extremities: normal pulses Results Result Diagram: 01/04/17 0730 01/04/17 0730 Results 24 hrs Laboratory Tests Test 01/04/17 20:53 01/05/17 08:07 01/05/17 11:37 01/05/17 17:26 Bedside Glucose 227 H 147 154 184 Medications Medications Current Medications Dextrose/Sodium Chloride (D5-1/2ns) 1,000 ml @ 50 mls/hr Q20H IV Last administered on 01/05/17 11:39; Admin Dose 50 MLS/HR; Start 01/01/17 at 10:30 Pantoprazole (Protonix Tab) 40 mg DAILY@06 PO Last administered on 01/05/17 06: 35; Admin Dose 40 MG; Start 01/02/17 at 06:00 Levofloxacin (Levaquin) 500 mg DAILY@06 PO Last administered on 01/05/17 06:35 ; Admin Dose 500 MG; Start 01/01/17 at 10:30 Acetaminophen (Tylenol Tab) 650 mg Q4H PRN PO PAIN AND OR ELEVATED TEMP; Start 01/01/17 at 10:30 Aspirin (Aspirin) 81 mg DAILY PO Last administered on 01/05/17 08:46; Admin Dose 81 MG; Start 01/01/17 at 10:30 Bisacodyl (Dulcolax) 10 mg DAILY PRN PO CONSTIPATION; Start 01/01/17 at 10:30 Cholecalciferol (Vitamin D) 1,000 unit DAILY PO Last administered on 01/05/17 08:46; Admin Dose 1,000 UNIT; Start 01/02/17 at 09:00 Divalproex Sodium (Depakote) 500 mg BID PO Last administered on 01/05/17 08:49 ; Admin Dose 500 MG; Start 01/01/17 at 12:00 Magnesium Hydroxide (Milk Of Mag) 30 ml HS PRN PO CONSTIPATION; Start 01/01/17 at 10:30 Magnesium Oxide (Mag-Ox 400) 250 mg BID PO Last administered on 01/05/17 08:46 ; Admin Dose 250 MG; Start 01/01/17 at 21:00 Fish Oil (Fish Oil) 1,000 mg HS PO Last administered on 01/04/17 20:56; Admin Dose 1,000 MG; Start 01/01/17 at 21:00 Oxcarbazepine (Trileptal) 300 mg BID PO Last administered on 01/05/17 08:47; Admin Dose 300 MG; Start 01/01/17 at 12:00 Phenytoin (Dilantin) 100 mg HS PO Last administered on 01/04/17 20:56; Admin Dose 100 MG; Start 01/01/17 at 21:00 Propranolol HCl (Inderal) 10 mg TID PO Last administered on 01/05/17 14:27; Admin Dose 10 MG; Start 01/01/17 at 13:00 Multivit/Ca Carb/ B Cmplx/FA/Prenat (Mitali-Uma) 1 tab DAILY PO Last administered on 01/05/17 08:46; Admin Dose 1 TAB; Start 01/02/17 at 09:00 Linagliptin (Tradjenta) 5 mg DAILY PO Last administered on 01/05/17 09:15; Admin Dose 5 MG; Start 01/03/17 at 12:30 Insulin Glargine (Lantus) 10 unit QHS SC Last administered on 01/04/17 20:58; Admin Dose 10 UNIT; Start 01/03/17 at 21:00 Miscellaneous Information 1 ea NOTE XX ; Start 01/03/17 at 13:00 Glucose (Glutose) 15 gm Q15M PRN PO DECREASED GLUCOSE; Start 01/03/17 at 13:00 Glucose (Glutose) 22.5 gm Q15M PRN PO DECREASED GLUCOSE; Start 01/03/17 at 13:00 Dextrose (D50w Syringe) 25 ml Q15M PRN IV DECREASED GLUCOSE; Start 01/03/17 at 13:00 Dextrose (D50w Syringe) 50 ml Q15M PRN IV DECREASED GLUCOSE; Start 01/03/17 at 13:00 Glucagon (Glucagen) 1 mg Q15M PRN IM DECREASED GLUCOSE; Start 01/03/17 at 13:00 Glucose (Glutose) 15 gm Q15M PRN BUCCAL DECREASED GLUCOSE; Start 01/03/17 at 13: 00 SALVATORE CALZADA MD Jan 05, 2017 18:27
[2017-01-05] MEDS: FISH OIL 1,000 MG CAP PO SCH (21:29)
[2017-01-05] MEDS: INSULIN GLARGINE [LANtus] 3 ML PEN SC SCH (21:43)
[2017-01-05] MEDS: PHENYTOIN 100 MG CAP PO SCH (21:49)
[2017-01-06] VITALS (11 sets, daily range): BP systolic 101–125; BP diastolic 63–87; PULSE 73–79; RESP 16–20
[2017-01-06] MEDS: LEVOFLOXACIN 500 MG TAB PO SCH (06:11)
[2017-01-06] MEDS: PANTOPRAZOLE (EC) 40 MG TAB PO SCH (06:11)
[2017-01-06] MEDS: ACCU-CHEK XX SCH ×3 (07:30→17:47)
[2017-01-06] MEDS: DEXTROSE 5%-0.45% NACL 1,000 ML IV SCH (09:15)
[2017-01-06] MEDS: DIVALPROEX (EC) 500 MG TAB PO SCH (09:20)
[2017-01-06] MEDS: CHOLECALCIFEROL 1,000 UNIT TAB PO SCH (09:21)
[2017-01-06] MEDS: MULTIVIT/CA CARB/B CMPLX/FA TAB PO SCH (09:21)
[2017-01-06] MEDS: PROPRANOLOL 10 MG TAB PO SCH ×2 (09:21→12:25)
[2017-01-06] MEDS: MAGNESIUM OXIDE 400 MG TAB PO SCH (09:21)
[2017-01-06] MEDS: ASPIRIN 81 MG TAB PO SCH (09:21)
[2017-01-06] MEDS: LINAGLIPTIN 5 MG TABLET PO SCH (09:21)
[2017-01-06] MEDS: OXCARBAZEPINE 300 MG TAB PO SCH (09:21)
--- NOTE | 2017-01-06 15:40 | CONS ---
Date/Time of Note Date/Time of Note DATE: 01/06/17 TIME: 15:38 Assessment/Plan Assessment/Plan Chief Complaint/Hosp Course m sirs pneumonia ashd dehydration encephalopathy BETTER plan per order d/c SNIF today Subjective 24 Hr Interval Summary Respiratory: No shortness of breath Cardiovascular: no complaints Gastrointestinal: no complaints Exam/Review of Systems Vital Signs Vitals Exam Respiratory: clear to auscultation Cardiovascular: regular rate and rhythm Gastrointestinal: soft Extremities: normal pulses Problems: Consultation Date/Type/Reason Admit Date/Time Jan 01, 2017 at 05:42 Initial Consult Date 24 HR Interval Summary Free Text/Dictation No new complains No fevers Exam/Review of Systems Vital Signs Vitals Vital Signs Date Time Temp Pulse Resp B/P Pulse Ox O2 Delivery O2 Flow Rate FiO2 01/06/17 12:25 79 120/84 01/06/17 11:35 97.9 20 95 Intake and Output 01/05/17 01/05/17 01/06/17 15:00 23:00 07:00 Intake Total 700 ml 900 ml Output Total 650 ml 550 ml Balance 50 ml 350 ml Results Result Diagram: 01/04/1730 01/04/17 0730 Results 24 hrs Laboratory Tests Test 01/05/17 17:26 01/05/17 21:35 01/06/17 08:05 01/06/17 12:21 Bedside Glucose 184 171 105 155 Medications Medications Current Medications Dextrose/Sodium Chloride (D5-1/2ns) 1,000 ml @ 50 mls/hr Q20H IV Last administered on 01/06/17 09:15; Admin Dose 50 MLS/HR; Start 01/01/17 at 10:30 Pantoprazole (Protonix Tab) 40 mg DAILY@06 PO Last administered on 01/06/17 06: 11; Admin Dose 40 MG; Start 01/02/17 at 06:00 Levofloxacin (Levaquin) 500 mg DAILY@06 PO Last administered on 01/06/17 06:11 ; Admin Dose 500 MG; Start 01/01/17 at 10:30 Acetaminophen (Tylenol Tab) 650 mg Q4H PRN PO PAIN AND OR ELEVATED TEMP; Start 01/01/17 at 10:30 Aspirin (Aspirin) 81 mg DAILY PO Last administered on 01/06/17 09:21; Admin Dose 81 MG; Start 01/01/17 at 10:30 Bisacodyl (Dulcolax) 10 mg DAILY PRN PO CONSTIPATION; Start 01/01/17 at 10:30 Cholecalciferol (Vitamin D) 1,000 unit DAILY PO Last administered on 01/06/17 09:21; Admin Dose 1,000 UNIT; Start 01/02/17 at 09:00 Divalproex Sodium (Depakote) 500 mg BID PO Last administered on 01/06/17 09:20 ; Admin Dose 500 MG; Start 01/01/17 at 12:00 Magnesium Hydroxide (Milk Of Mag) 30 ml HS PRN PO CONSTIPATION; Start 01/01/17 at 10:30 Magnesium Oxide (Mag-Ox 400) 250 mg BID PO Last administered on 01/06/17 09:21 ; Admin Dose 250 MG; Start 01/01/17 at 21:00 Fish Oil (Fish Oil) 1,000 mg HS PO Last administered on 01/05/17 21:29; Admin Dose 1,000 MG; Start 01/01/17 at 21:00 Oxcarbazepine (Trileptal) 300 mg BID PO Last administered on 01/06/17 09:21; Admin Dose 300 MG; Start 01/01/17 at 12:00 Phenytoin (Dilantin) 100 mg HS PO Last administered on 01/05/17 21:49; Admin Dose 100 MG; Start 01/01/17 at 21:00 Propranolol HCl (Inderal) 10 mg TID PO Last administered on 01/06/17 12:25; Admin Dose 10 MG; Start 01/01/17 at 13:00 Multivit/Ca Carb/ B Cmplx/FA/Prenat (Mitali-Uma) 1 tab DAILY PO Last administered on 01/06/17 09:21; Admin Dose 1 TAB; Start 01/02/17 at 09:00 Linagliptin (Tradjenta) 5 mg DAILY PO Last administered on 01/06/17 09:21; Admin Dose 5 MG; Start 01/03/17 at 12:30 Insulin Glargine (Lantus) 10 unit QHS SC Last administered on 01/05/17 21:43; Admin Dose 10 UNIT; Start 01/03/17 at 21:00 Miscellaneous Information 1 ea NOTE XX ; Start 01/03/17 at 13:00 Glucose (Glutose) 15 gm Q15M PRN PO DECREASED GLUCOSE; Start 01/03/17 at 13:00 Glucose (Glutose) 22.5 gm Q15M PRN PO DECREASED GLUCOSE; Start 01/03/17 at 13:00 Dextrose (D50w Syringe) 25 ml Q15M PRN IV DECREASED GLUCOSE; Start 01/03/17 at 13:00 Dextrose (D50w Syringe) 50 ml Q15M PRN IV DECREASED GLUCOSE; Start 01/03/17 at 13:00 Glucagon (Glucagen) 1 mg Q15M PRN IM DECREASED GLUCOSE; Start 01/03/17 at 13:00 Glucose (Glutose) 15 gm Q15M PRN BUCCAL DECREASED GLUCOSE; Start 01/03/17 at 13: 00 RADHA JACKSON MD Jan 06, 2017 15:40
--- NOTE | 2017-01-06 15:49 | DS ---
Date/Time of Note Date/Time of Note DATE: 01/06/17 TIME: 15:49 Discharge Summary Admission/Discharge Info Admit Date/Time Jan 01, 2017 at 05:42 Discharge Date/Time Patient Condition: Good Hospital Course m sirs pneumonia ashd dehydration encephalopathy BETTER plan per order d/c SNIF today Subjective 24 Hr Interval Summary Respiratory: No shortness of breath Cardiovascular: no complaints Gastrointestinal: no complaints Exam/Review of Systems Vital Signs Vitals Exam Respiratory: clear to auscultation Cardiovascular: regular rate and rhythm Gastrointestinal: soft Extremities: normal pulses Home Meds Reported Medications Omeprazole* (Omeprazole*) 20 Mg Capsule.dr, 20 MG PO AC BREAKFAST, #60 CAP 01/01/17 Phenytoin* (Phenytoin*) 125 Mg/5 Ml Oral.susp, 100 MG PO QHS for SEIZURES for 30 Days, BOTTLE 01/01/17 Neomycin Sulfate* (Neomycin Sulfate*) 500 Mg Tab, 500 MG PO QID, TAB 01/01/17 Aspirin* (Aspirin* Chew) 81 Mg Tab.chew, 81 MG PO DAILY, TAB.CHEW TAKE 1 TABLET AT 9:00 am, for CVA PROPHYLAXIS 01/01/17 Sod Phosphate/Sod Biphosphate* (Fleet* Enema Pediatric) 66.6 Ml Soln, 66.6 ML RI DAILY Y for CONSTIPATION, ENEMA 09/02/16 Acetaminophen* (Tylenol*) 325 Mg Tablet, 650 MG PO Q4H Y for MILD PAIN LEVEL 1-3 , TAB AND FOR FEVER>100 09/02/16 Magnesium Hydroxide* (Milk Of Magnesia*) 400 Mg/5 Ml Oral.susp, 30 ML PO QHS, ML 09/02/16 Bisacodyl* (Dulcolax*) 5 Mg Tablet.dr, 10 MG PO Q2D Y for CONSTIPATION, TAB 09/02/16 Cholecalciferol* (Vitamin D3*) 1,000 Unit Tablet, 1000 UNIT PO QAM, TAB 09/02/16 Oxcarbazepine* (Trileptal*) 300 Mg Tablet, 300 MG PO BID, TAB 09/02/16 Propranolol Hcl* (Propranolol Hcl*) 10 Mg Tablet, 10 MG PO TID, TAB HOLD IF SBP<110 HR<60 9AM,1PM,5PM. 09/02/16 Gabapentin* (Neurontin*) 100 Mg Capsule, 100 MG PO TID, #90 CAP TAKE 9AM,1PM,5PM. 09/02/16 [Nephrovite] No Conflict Check, 1 TAB PO QAM 09/02/16 Magnesium Oxide (Magnesium) 250 Mg Tablet, 250 MG PO BID, TAB 09/02/16 Atorvastatin Calcium* (Atorvastatin Calcium*) 20 Mg Tablet, 20 MG PO QHS, #30 TAB 09/02/16 Orondo-3 Fatty Acids/Fish Oil (Fish Oil 1,000 mg Softgel) 1 Each Capsule, 1 EACH PO QAM, CAP 09/02/16 Divalproex Sodium* (Depakote* Sprinkle) 125 Mg Cap.sprink, 500 MG PO BID, #360 CAP 09:00 AM AND 05:00 PM 09/02/16 Primary Care Provider Sourav Gavin MD Pending Labs Laboratory Tests Test 01/05/17 17:26 01/05/17 21:35 01/06/17 08:05 01/06/17 12:21 Bedside Glucose 184mg/dL (70-220) 171mg/dL (70-220) 105mg/dL (70-220) 155mg/dL (70-220) RADHA JACKSON MD Jan 06, 2017 15:49
== END 2017-01-06 18:52 | DRG 193 ==
LOC: E/R 03:14 → MS4 05:42
PROVIDERS: ADMIT Internal Medicine; ATTEND Internal Medicine Nephrology
DX: J18.9 Pneumonia, unspecified organism (principal); G93.40 Encephalopathy, unspecified; R65.10 Systemic inflammatory response syndrome (SIRS) of non-infectious origin without acute organ dysfunction; F03.90 Unspecified dementia, unspecified severity, without behavioral disturbance, psychotic disturbance, mood disturbance, and anxiety; E11.65 Type 2 diabetes mellitus with hyperglycemia; E86.0 Dehydration; I25.10 Atherosclerotic heart disease of native coronary artery without angina pectoris; Z88.0 Allergy status to penicillin; I10 Essential (primary) hypertension; F12.90 Cannabis use, unspecified, uncomplicated; Z79.82 Long term (current) use of aspirin; D72.829 Elevated white blood cell count, unspecified; D64.9 Anemia, unspecified
CPT/HCPCS: 36415; 70450; 71010; 80053; 80306; 80307; 81001; 82140; 82962; 83036; 85025; 87070; 93005; J1815; J7042